=== PATIENT | male | born 1930 | race Caucasian/White ===

== ENCOUNTER 2017-06-08 09:23 | Inpatient (IN) | payer MEDICARE ==
[2017-06-08] MEDS ORDERED: ALBUTEROL NEBULIZED 2.5 MG/3 ML INHALATION STA (09:43)
[2017-06-08] MEDS ORDERED: methylPREDNISolone SOD SUCCI 125 MG/2 ML VIAL IV STA (09:43)
[2017-06-08] MEDS ORDERED: IPRATROPIUM 0.5 MG/2.5 ML NEBU INHALATION STA (09:43)
--- NOTE | 2017-06-08 09:50 | ED ---
General Adult HPI - General Chief complaint: Shortness of Breath Stated complaint: Difficulty Breathing Time Seen by Provider: 06/08/17 09:29 Source: patient, RN notes reviewed, old records reviewed Mode of arrival: wheelchair Limitations: no limitations - History of Present Illness Initial comments: 86-year-old male presents with chief complaint of to breathing and fall. History obtained from EMS and patient's spouse is at bedside. According EMS, initial call was made for fall. Patient was getting out of bed, fell to the side of the bed, there is no head trauma. No extra signs trauma according to EMS. Patient was sitting with complaint of tailbone pain. At the time my evaluation patient has no pain complaints. EMS found patient had moderate respiratory distress, diffuse rhonchi and hypoxia. According the patient's spouse he was scheduled to see his technology project manager yesterday but was unable to make this appointment. He has had a one-week history of worsening cough and dyspnea. Patient has history of COPD and pneumonia. Patient is unable to contribute to the history due to previous stroke. Patient's denies fever. - Related Data Home Medications Medication Instructions Recorded Confirmed Aspirin EC [Ecotrin Low Dose] 81 mg PO DAILY 06/08/17 06/08/17 Atorvastatin [Lipitor] 20 mg PO HS 06/08/17 06/08/17 Celecoxib [CeleBREX] 200 mg PO DAILY 06/08/17 06/08/17 Cranberry Fruit Extract [Cranberry] 200 mg PO DAILY 06/08/17 06/08/17 Ipratropium-Albuterol Nebulize 3 ml INHALATION RT-TID 06/08/17 06/08/17 [Duoneb 0.5 mg-3 mg/3 ml Soln] Losartan [Cozaar] 25 mg PO DAILY 06/08/17 06/08/17 Multivit-Min/FA/Lycopen/Lutein 1 tab PO DAILY 06/08/17 06/08/17 [Centrum Silver Tablet] Nitroglycerin Extended Release 6.5 mg PO Q12H 06/08/17 06/08/17 [Nitro-Bid] Vitamin D3 With Aloe 1 tab PO DAILY 06/08/17 06/08/17 Vits A,C,E/Lutein/Minerals 1 tab PO DAILY 06/08/17 06/08/17 [Ocuvite with Lutein Tablet] Allergies Allergy/AdvReac Type Severity Reaction Status Date / Time No Known Allergies Allergy Verified 06/08/17 09:47 Review of Systems ROS Statement: Those systems with pertinent positive or pertinent negative responses have been documented in the HPI. ROS Other: All systems not noted in ROS Statement are negative. 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 Absent: tenderness Respiratory exam: Present: respiratory distress, wheezes, rhonchi Cardiovascular Exam: Present: normal rhythm, tachycardia GI/Abdominal exam: Present: soft. Absent: distended, tenderness Extremities exam: Present: pedal edema, other (Right lower extremity atrophy) Back exam: Present: normal inspection, full ROM. Absent: tenderness Neurological exam: Present: alert, motor sensory deficit Skin exam: Present: warm, dry, intact. Absent: cyanosis, diaphoretic Course Vital Signs 06/08/17 06/08/17 06/08/17 09:28 09:56 10:06 Temperature 97.8 F Pulse Rate 101 H 100 Respiratory 26 H Rate Blood Pressure 137/57 O2 Sat by Pulse 86 L 88 L Oximetry 06/08/17 06/08/17 10:28 10:35 Temperature Pulse Rate 111 H 97 Respiratory 25 H Rate Blood Pressure 128/59 O2 Sat by Pulse 95 Oximetry EKG Findings - EKG Comments: EKG Findings:: EKG shows normal sinus rhythm with sinus arrhythmia, ventricular rate 98, IL interval 186, QRS duration 102, QTC 467, no signs of ischemia Medical Decision Making - Medical Decision Making 86-year-old male presenting with cough difficult to breathing and minor fall. Chest x-rays obtained, shows large right middle lobe pneumonia. White blood cell count 26.5, hyponatremia 127. Patient is started on antibiotics. He will be admitted for pneumonia with hypoxia. Regarding the fall, patient does have mild tenderness over the left hip, range of motion at the hip. Pelvis x-ray shows possible bilateral impingement on the right hip, patient does not have tenderness there. Diagnosis: Pneumonia with hypoxia - Lab Data Result diagrams: 06/08/17 09:50 06/08/17 09:50 Lab Results 06/08/17 06/08/17 06/08/17 Range/Units 09:50 09:50 09:50 WBC 26.5 H* (3.8-10.6) k/uL RBC 3.75 L (4.30-5.90) m/uL Hgb 11.1 L (13.0-17.5) gm/dL Hct 34.1 L (39.0-53.0) % MCV 91.0 (80.0-100.0) fL MCH 29.7 (25.0-35.0) pg MCHC 32.6 (31.0-37.0) g/dL RDW 13.1 (11.5-15.5) % Plt Count 626 H (150-450) k/uL Neutrophils % 89 % Lymphocytes % 8 % Monocytes % 2 % Eosinophils % 0 % Basophils % 0 % Neutrophils # 23.5 H (1.3-7.7) k/uL Lymphocytes # 2.2 (1.0-4.8) k/uL Monocytes # 0.5 (0-1.0) k/uL Eosinophils # 0.1 (0-0.7) k/uL Basophils # 0.0 (0-0.2) k/uL Manual Slide Review Performed Toxic Granulation Present Poikilocytosis (manual Present PT (9.0-12.0) sec INR (<1.2) APTT (22.0-30.0) sec Sodium 127 L (137-145) mmol/L Potassium 3.6 (3.5-5.1) mmol/L Chloride 93 L (98-107) mmol/L Carbon Dioxide 26 (22-30) mmol/L Anion Gap 8 mmol/L BUN 11 (9-20) mg/dL Creatinine 0.62 L (0.66-1.25) mg/dL Est GFR (MDRD) Af Amer >60 (>60 ml/min/1.73 sqM) Est GFR (MDRD) Non-Af >60 (>60 ml/min/1.73 sqM) Glucose 116 H (74-99) mg/dL Plasma Lactic Acid Saulo (0.7-2.0) mmol/L Calcium 9.0 (8.4-10.2) mg/dL Magnesium 2.0 (1.6-2.3) mg/dL Total Bilirubin 0.6 (0.2-1.3) mg/dL AST 31 (17-59) U/L ALT 68 (21-72) U/L Alkaline Phosphatase 119 (38-126) U/L Total Creatine Kinase 75 (55-170) U/L CK-MB (CK-2) 1.1 (0.0-2.4) ng/mL CK-MB (CK-2) Rel Index 1.5 Troponin I <0.012 (0.000-0.034) ng/mL NT-Pro-B Natriuret Pep pg/mL Total Protein 6.0 L (6.3-8.2) g/dL Albumin 2.3 L (3.5-5.0) g/dL 06/08/17 06/08/17 06/08/17 Range/Units 09:50 09:50 09:50 WBC (3.8-10.6) k/uL RBC (4.30-5.90) m/uL Hgb (13.0-17.5) gm/dL Hct (39.0-53.0) % MCV (80.0-100.0) fL MCH (25.0-35.0) pg MCHC (31.0-37.0) g/dL RDW (11.5-15.5) % Plt Count (150-450) k/uL Neutrophils % % Lymphocytes % % Monocytes % % Eosinophils % % Basophils % % Neutrophils # (1.3-7.7) k/uL Lymphocytes # (1.0-4.8) k/uL Monocytes # (0-1.0) k/uL Eosinophils # (0-0.7) k/uL Basophils # (0-0.2) k/uL Manual Slide Review Toxic Granulation Poikilocytosis (manual PT 12.9 H (9.0-12.0) sec INR 1.3 H (<1.2) APTT 28.4 (22.0-30.0) sec Sodium (137-145) mmol/L Potassium (3.5-5.1) mmol/L Chloride (98-107) mmol/L Carbon Dioxide (22-30) mmol/L Anion Gap mmol/L BUN (9-20) mg/dL Creatinine (0.66-1.25) mg/dL Est GFR (MDRD) Af Amer (>60 ml/min/1.73 sqM) Est GFR (MDRD) Non-Af (>60 ml/min/1.73 sqM) Glucose (74-99) mg/dL Plasma Lactic Acid Saulo 1.3 (0.7-2.0) mmol/L Calcium (8.4-10.2) mg/dL Magnesium (1.6-2.3) mg/dL Total Bilirubin (0.2-1.3) mg/dL AST (17-59) U/L ALT (21-72) U/L Alkaline Phosphatase (38-126) U/L Total Creatine Kinase (55-170) U/L CK-MB (CK-2) (0.0-2.4) ng/mL CK-MB (CK-2) Rel Index Troponin I (0.000-0.034) ng/mL NT-Pro-B Natriuret Pep 1690 pg/mL Total Protein (6.3-8.2) g/dL Albumin (3.5-5.0) g/dL Disposition Clinical Impression: Acute exacerbation of chronic obstructive airways disease, Pneumonia Disposition: ADMITTED IP TO THIS [facility] Condition: Serious Referrals: Yonathan Ulrich MD [Primary Care Provider] - 1-2 days Decision to Admit Reason: Admit from EC Decision Date: 06/08/17 Decision Time: 12:06
[2017-06-08 10:14] LABS: Basophils % (A) 0 %; CH 31.2; CHCM 34.4; Eosinophils # (A) 0.1 k/uL (0-0.7); Eosinophils % (A) 0 %; HCT 34.1 % (39.0-53.0); HDW 2.67; HGB 11.1 gm/dL (13.0-17.5); Luc # (Auto) 0.21; Luc % (Auto) 1; Lymphocytes # (A) 2.2 k/uL (1.0-4.8); Lymphocytes % (A) 8 %; MCH 29.7 pg (25.0-35.0); MCHC 32.6 g/dL (31.0-37.0); Mean Platelet Volume 6.9; Monocytes # (A) 0.5 k/uL (0-1.0); Monocytes % (A) 2 %; Neutrophils # (A) 23.5 k/uL (1.3-7.7); Neutrophils % (A) 89 %; RBC 3.75 m/uL (4.30-5.90); RDW 13.1 % (11.5-15.5); WBC (Perox) 26.37
[2017-06-08 10:16] LABS: INR 1.3 (<1.2); Partial Thromboplastin Time 28.4 sec (22.0-30.0); Prothrombin Time 12.9 sec (9.0-12.0)
[2017-06-08 10:19] LABS: WBC 26.5 k/uL (3.8-10.6)
[2017-06-08 10:24] LABS: ALT 68 U/L (21-72); AST 31 U/L (17-59); Alkaline Phosphatase 119 U/L (38-126); Anion Gap 8 mmol/L; Blood Urea Nitrogen 11 mg/dL (9-20); Carbon Dioxide 26 mmol/L (22-30); Chloride 93 mmol/L (98-107); Glucose 116 mg/dL (74-99); Non-African American GFR(MDRD) >60 (>60 ml/min/1.73 sqM); Potassium 3.6 mmol/L (3.5-5.1); Sodium 127 mmol/L (137-145); Total Bilirubin 0.6 mg/dL (0.2-1.3)
[2017-06-08 10:29] LABS: Creatine Kinase 75 U/L (55-170)
[2017-06-08 10:33] LABS: Manual Review Performed
[2017-06-08 10:34] LABS: Toxic Granulation Present
[2017-06-08 10:41] LABS: Creatine Kinase MB 1.1 ng/mL (0.0-2.4); Troponin I <0.012 ng/mL (0.000-0.034)
--- NOTE | 2017-06-08 11:09 | XR ---
EXAMINATION TYPE: XR chest 2V DATE OF EXAM: 06/08/2017 COMPARISON: 04/20/2017 TECHNIQUE: PA and lateral views submitted. HISTORY: Shortness of breath FINDINGS: There is a large right hilar mass in area of consolidation. Right apical pleural thickening stable. R ight lower lobe infiltrate and small effusion noted. Subsegmental changes at the left lung base with tiny effusion. Underlying COPD suspected with atherosclerotic change aorta. Diffuse osteopenia and ar thropathy of the shoulders. IMPRESSION: 1. Bilateral areas of pleural effusion and consolidation with suspected large right hilar mass or con solidation. Recommend CT scan of the chest.
--- NOTE | 2017-06-08 11:11 | XR ---
EXAMINATION TYPE: XR pelvis AP view DATE OF EXAM: 06/08/2017 COMPARISON: NONE HISTORY: Pain The osseous structures are intact and severe degenerative change lower lumbar spine. Postsurgical changes are noted with surgical clips. Arthropathy of the hips.. No acute fracture is s een. Visualized bowel gas pattern is nonspecific. Slight deformity of the superior margin of the ri ght femoral neck. IMPRESSION: 1. Slight deformity of the superior margin the right femoral neck may been the basis of femoral aceta bular impingement rather than fracture. If the patient is point tender to the right hip then consider CT scan..
[2017-06-08] MEDS ORDERED: VANCOMYCIN IV PER PHARMACY 1 EACH MISC MISCELLANE PRN (12:00)
[2017-06-08] MEDS ORDERED: RX INFO: IV CONTRAST WAS GIVEN 1 EACH MISC MISCELLANE PRN (12:01)
[2017-06-08] MEDS ORDERED: CEFEPIME 2 GM in SODIUM CHLORIDE 0.9% 50 ML IVPB STA (12:02)
[2017-06-08] MEDS ORDERED: VANCOMYCIN 1,250 MG in SODIUM CHLORIDE 0.9% 250 ML IVPB ONE (12:30)
[2017-06-08 13:28] LABS: Appearance,Urine Clear (Clear); Bilirubin,Urine Negative (Negative); Glucose,Urine (UA) Negative (Negative); Ketones,Urine Negative (Negative); Leukocyte Esterase,Urine Negative (Negative); Nitrite,Urine Negative (Negative); Protein,Urine Trace (Negative); Specific Gravity,Urine 1.013 (1.001-1.035); UA Billing (MACRO vs. MICRO) CHEM
--- NOTE | 2017-06-08 14:18 | CT ---
EXAMINATION TYPE: CT pelvis wo con DATE OF EXAM: 06/08/2017 COMPARISON: Plain film same date HISTORY: fall CT DLP: 547 mGycm Automated exposure control for dose reduction was used. Helical acquisition through the pelvis. Coron al and sagittal reconstructions. FINDINGS: Faint lucency noted on axial image 58 and 59 in the right femoral neck is thought likely to be relate d to a nutrient foramen rather than fracture. There is no evident joint effusion. No surrounding jay jay a. Prostate is enlarged and shows associated calcification. There is no dislocation. Degenerative dis c changes are noted in the lower lumbar spine. Postop change present at the posterior ilium on the ri ght. Laminectomy noted at L5, L4, patient is post lumbar fusion. Postop change also noted to the abdo ishaan aorta status post aorta bifemoral bypass grafts. IMPRESSION: SUSPECT NORMAL VARIANT IN THE RIGHT FEMORAL NECK. CLINICALLY INDICATED MRI MAY BEEN INCREASED SENS ITIVITY. POSTOP CHANGES.
--- NOTE | 2017-06-08 14:29 | CT ---
EXAMINATION TYPE: CT chest w con DATE OF EXAM: 06/08/2017 COMPARISON: Chest x-ray 04/20/[address] 09/01/2009 HISTORY: pneumonia and cough, COPD, shortness of breath CT DLP: 668 mGycm Automated exposure control for dose reduction was used. CONTRAST: CT scan of the chest is performed with IV Contrast, patient injected with 100 mL of Omnipaque 300. FINDINGS: LUNGS: Abnormal density in the right lower lobe is increased, there are thick walled areas of air-flu id levels, multiple internal septated appearance. Overall the abnormality measures approximately 10 c m x 10 cm x 6 cm and extends from the right hilar region posteriorly and inferiorly along the pleural surface medially and posteriorly. Low-attenuation in the pulmonary veins may be due to lack of contr ast, difficult to exclude clot. Extensive interstitial changes are again noted, emphysematous changes again seen as on prior exam, there is apical scarring on the right greater than left, bullous change s. There is patchy increased density at the right lung base greater than left. Minimal right-sided pl eural effusion. MEDIASTINUM: Right paratracheal nodes are not enlarged. Small hiatal hernia suspected. AORTA: No additional significant abnormality is seen. OTHER: Colonic interposition noted anterior to the liver. There are coronary artery calcifications w hich are extensive. Calcified precarinal node is present. There are old right-sided rib fractures. IMPRESSION: Correlate to exclude multilocular lung abscess versus tumor, difficult to exclude pulmon sarah pain thrombosis in the right lower lobe. Consider pulmonary, cardiothoracic surgery consult A [place] message has been communicated to Wayne Torres MD via the [employer] Critical Result system on 06/08/2017 2:27 PM, Message ID [id number].
[2017-06-08] MEDS: IPRATROPIUM-ALBUTEROL 3 ML NEB INHALATION SCH ×2 (16:24→19:30)
--- NOTE | 2017-06-08 19:40 | P.HPIM ---
History of Present Illness H&P Date: 06/08/17 Chief Complaint: fall from standing, shortness of breath HISTORY OF PRESENT ILLNESS: 86-year-old male patient of Dr. Yonathan Wu with chronic stable medical conditions that include COPD, CVA, hyperlipidemia, BPH presented to the emergency department after he sustained a fall earlier this morning and shortness of breath. Patient is unable to provide much history as he had had stroke in 1981 and has right-sided hemiplegia. at the bedside and provides most of the history. Patient was experiencing some urinary urgency and was attempting to use the urinal at home and his found him down on the ground with the urinal his hand when she returned. Did not hit his head no loss of consciousness, EMS was called to have him brought in to be looked at but on their arrival patient seemed to be in respiratory distress diffuse rhonchi and hypoxia. Patient was to see his registered nursing professor yesterday however was unable to get to the appointment. Has had shortness of breath worsening cough and dyspnea for about a week. Endorses sputum production that is clear, shortness of breath with minimal exertion. REVIEW OF SYSTEMS GEN.: [ Tired] EYES: [None] HEENT: [None] NECK: [None] RESPIRATORY: [shortness of breath, sputum production, cough] CARDIOVASCULAR: [Chest pain yesterday] GASTROINTESTINAL: [None] GENITOURINARY: [dribbling of urine, difficulty urinating] MUSCULOSKELETAL: [right-sided weakness] LYMPHATICS: [None] HEMATOLOGICAL: [None] PSYCHIATRY: [None] NEUROLOGICAL: [CVA with right-sided residual] PAST MEDICAL HISTORY Past medical history: COPD, CVA, hyperlipidemia, BPH,, history of MRSA Past surgical history: back surgery Past psychological history: none SOCIAL HISTORY: Additional psychological/social history: smoking use history:former smoker 2 packs per day 45 years Alcohol use history: none Drug use history:none marital status: Lives with: Work history: work in factory, retired FAMILY HISTORY: noncontributory HOME MEDICATION: vitamin D3 with Aloe 1 tablet by mouth daily Vitamin A/C/E/LUTEIN /minerals 1 tab by mouth daily Nitroglycerin extended release 6.5 mg by mouth every 12 hours Losartan 25 mg by mouth daily Ipratropium albuterol nebulize 3 mL inhalation 3 times a day Cranberry fruit extract 200 mg by mouth daily Multivitamin/FA/lycopene/1 one tablet by mouth daily Aspirin EC 81 mg by mouth daily Celebrex 200 mg by mouth daily Atorvastatin 20 mg by mouth at bedtime. ALLERGIES: no known ALLERGIES VITAL SIGNS: [.temperature 97.0, pulse 98, respiratory rate 18, blood pressure 155/73, oxygen saturation 97% on 3 L. BMI noted] GENERAL: [Average built, sitting up, comfortable]. EYES: [Pupils equal. Conjunctiva blanche]l. HEENT: [External appearance of nose and ears normal, oral cavity grossly normal] . NECK: [JVD not raised; masses not palpable]. HEART: [First and second heart sounds are normal; no edema]. LUNGS:[ Respiratory rate normal; diminished to auscultation]. ABDOMEN: [Soft, nontender, liver spleen not palpable, no masses palpable]. LYMPHATICS: [No lymph nodes palpable in the axilla and neck]. PSYCH: able to answer simple straightforward questions ; mood and affect blanche ]l. NEUROLOGICAL: right-sided hemiplegia from previous stroke, right lower extremity atrophy,right arm contracted INVESTIGATIONS: labs: White blood cell count 26.5, hemoglobin 11.1, INR 1.3, sodium 127, pelvis CT: Suspect normal variant in the right femoral neck Chest CT:correlate to exclude multilocular lung abscess versus tumor difficult to exclude pulmonary thrombosis in the right lower lobe. ASSESSMENT: -fall from standing in a patient who has a history of CVA, did not hit his head and no loss of consciousness -acute chronic obstructive pulmonary disease exacerbation in a patient who is an ex-smoker -Benign prostatic hypertrophy in a patient who is having increasing difficulty with his stream, not currently on any medication -Hyperlipidemia. -History of CVA with right hemiplegia PLAN: Home medications reordered,pulmonology consulted,Flomax added to patient's regimen , PT and OT consult. plan of care discussed with the and the patient at the bedside in agreement. We will follow closely. CARDBOARD CUTTER STATEMENT: Patient was seen and examined by nurse practitioner Vangie Willard in all elements of the case discussed with attending Dr. Torres. 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 History of Any Multi-Drug Resistant Organisms: None Reported Past Surgical History: Back Surgery Additional Past Surgical History / Comment(s): 1991 lumbar laminectomy with fusion, 1996 AAA repair Past Anesthesia/Blood Transfusion Reactions: No Reported Reaction Smoking Status: Former smoker - Past Family History Father Family Medical History: Myocardial Infarction (NV) Additional Family Medical History / Comment(s): Father of a NV in his 80's. Mother Family Medical History: Hypertension Additional Family Medical History / Comment(s): Mother in her 80's Medications and Allergies Home Medications Medication Instructions Recorded Confirmed Type Aspirin EC [Ecotrin Low Dose] 81 mg PO DAILY 06/08/17 06/08/17 History Atorvastatin [Lipitor] 20 mg PO HS 06/08/17 06/08/17 History Celecoxib [CeleBREX] 200 mg PO DAILY 06/08/17 06/08/17 History Cranberry Fruit Extract [Cranberry] 200 mg PO DAILY 06/08/17 06/08/17 History Ipratropium-Albuterol Nebulize 3 ml INHALATION RT-TID 06/08/17 06/08/17 History [Duoneb 0.5 mg-3 mg/3 ml Soln] Losartan [Cozaar] 25 mg PO DAILY 06/08/17 06/08/17 History Multivit-Min/FA/Lycopen/Lutein 1 tab PO DAILY 06/08/17 06/08/17 History [Centrum Silver Tablet] Nitroglycerin Extended Release 6.5 mg PO Q12H 06/08/17 06/08/17 History [Nitro-Bid] Vitamin D3 With Aloe 1 tab PO DAILY 06/08/17 06/08/17 History Vits A,C,E/Lutein/Minerals 1 tab PO DAILY 06/08/17 06/08/17 History [Ocuvite with Lutein Tablet] Allergies Allergy/AdvReac Type Severity Reaction Status Date / Time No Known Allergies Allergy Verified 06/08/17 09:47 Physical Exam Vitals: Vital Signs Temp Pulse Pulse Resp BP BP Pulse Ox 06/08/17 16:36 96 06/08/17 16:24 96 06/08/17 15:07 98 18 06/08/17 14:41 97.0 F L 98 18 155/73 97 06/08/17 14:02 98.8 F 97 18 156/67 94 L 06/08/17 13:12 96 25 H 164/72 94 L 06/08/17 10:35 97 25 H 128/59 95 06/08/17 10:28 111 H 06/08/17 10:06 100 06/08/17 09:56 88 L 06/08/17 09:28 97.8 F 101 H 26 H 137/57 86 L Intake and Output 06/08/17 06/08/17 06/08/17 06:59 14:59 22:59 Intake Total 240 Output Total 300 Balance -300 240 Intake: Oral 240 Output: Urine 300 Straight 300 Other: Weight 62.142 kg Patient Weight 06/09/17 06:59 Weight 62.142 kg Results CBC & Chem 7: 06/08/17 09:50 06/08/17 09:50 Labs: Abnormal Lab Results - Last 24 Hours (Table) 06/08/17 06/08/17 06/08/17 Range/Units 09:50 09:50 09:50 WBC 26.5 H* (3.8-10.6) k/uL RBC 3.75 L (4.30-5.90) m/uL Hgb 11.1 L (13.0-17.5) gm/dL Hct 34.1 L (39.0-53.0) % Plt Count 626 H (150-450) k/uL Neutrophils # 23.5 H (1.3-7.7) k/uL PT 12.9 H (9.0-12.0) sec INR 1.3 H (<1.2) Sodium 127 L (137-145) mmol/L Chloride 93 L (98-107) mmol/L Creatinine 0.62 L (0.66-1.25) mg/dL Glucose 116 H (74-99) mg/dL Total Protein 6.0 L (6.3-8.2) g/dL Albumin 2.3 L (3.5-5.0) g/dL Urine Protein (Negative) 06/08/17 Range/Units 13:00 WBC (3.8-10.6) k/uL RBC (4.30-5.90) m/uL Hgb (13.0-17.5) gm/dL Hct (39.0-53.0) % Plt Count (150-450) k/uL Neutrophils # (1.3-7.7) k/uL PT (9.0-12.0) sec INR (<1.2) Sodium (137-145) mmol/L Chloride (98-107) mmol/L Creatinine (0.66-1.25) mg/dL Glucose (74-99) mg/dL Total Protein (6.3-8.2) g/dL Albumin (3.5-5.0) g/dL Urine Protein Trace H (Negative) Thrombosis Risk Factor Assmnt - Choose All That Apply Any of the Below Risk Factors Present?: Yes Each Factor Represents 1 point: Abnormal pulmonary function (COPD), Serious lung disease incl. pneumonia (< 1month) Other Risk Factors: Yes Each Risk Factor Represents 3 Points: Age 75 years or older Other congenital or acquired thrombophilia - If yes, enter type in comment: No Thrombosis Risk Factor Assessment Total Risk Factor Score: 5 Thrombosis Risk Factor Assessment Level: High Risk
[2017-06-08 20:20] LABS: Glucose,Whole Blood 170 mg/dL (75-99)
[2017-06-08] MEDS: NITROGLYCERIN EXTENDED RELEASE 6.5 MG CAPSULE.ER PO SCH (20:23)
[2017-06-08] MEDS: ATORVASTATIN 20 MG TAB PO SCH (20:23)
[2017-06-08] MEDS: TAMSULOSIN 0.4 MG CAP.ER.24H PO SCH (20:23)
--- NOTE | 2017-06-08 20:49 | HP ---
HISTORY AND PHYSICAL ATTENDING NOTE: The patient was seen and examined by me. I discussed with my nurse practitioner, Montse. This patient is here with his . History is obtained from his at the bedside, as patient cannot speak; he has aphasia from a prior stroke. The patient presented with a fall. His found him down on the floor. EMS was called out. Patient was found to be rather hypoxic, tachycardic. The patient has been coughing up thick sputum. Denies any fever. Appetite has been maintained. The patient, though, is able to follow commands but only cannot speak. PHYSICAL EXAMINATION: Temperature 97.8, pulse 101, respiration 26, blood pressure 137/57, pulse ox 86% on room air. GENERAL APPEARANCE: Thin build. Lying in bed, awake. EYES: Pupils equal.. Conjunctivae pale. RESPIRATORY: Effort increased. LUNGS: Diminished breath sounds. Some wheezing. CARDIOVASCULAR: First and second sounds normal. No edema. ABDOMEN: Soft, nontender. Liver and spleen not palpable. NEUROLOGICAL: Power on the right side is 1/5. Patient is actually aphasic. INVESTIGATIONS: White count 26.5, hemoglobin 11.1, potassium 3.6, sodium 127, BUN 11, creatinine 0.62, albumin 2.3. CT scan of the chest shows possible multilocular lung abscess versus tumor; difficult to exclude pulmonary vein thrombosis, right lower lobe. ASSESSMENT: 1. Possible right-sided severe multilocular pneumonia; could be aspiration. 2. Chronic obstructive pulmonary disease. 3. 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 4. Hyperlipidemia. 5. Primary osteoarthritis. 6. Essential hypertension. 7. Benign prostatic hypertrophy. 8. Possible moderate protein-calorie malnutrition with a BMI of 18.6, decreased albumin and reduced muscle mass. PLAN: Consultation to Pulmonary and Cardiothoracic Surgery will be made as recommended on the radiology report. Home medications are resumed. Patient is on IV cefepime. Care was discussed at the bedside. In spite of the above findings, patient is rather smiling, sitting up. MMODL / IJN: [id number] /
[2017-06-08] MEDS: CEFEPIME 2 GM in SODIUM CHLORIDE 0.9% 50 ML IVPB SCH (22:05)
[2017-06-09] MEDS ORDERED: VANCOMYCIN 1,250 MG in SODIUM CHLORIDE 0.9% 250 ML IVPB SCH ×2
[2017-06-09 00:25] LABS: Glucose,Whole Blood 168 mg/dL (75-99)
[2017-06-09] MEDS: CEFEPIME 2 GM in SODIUM CHLORIDE 0.9% 50 ML IVPB SCH ×3 (06:06→21:53)
[2017-06-09 06:29] LABS: Basophils % (A) 0 %; CH 30.9; CHCM 33.7; Eosinophils % (A) 0 %; HCT 31.8 % (39.0-53.0); HDW 2.66; HGB 10.4 gm/dL (13.0-17.5); Luc # (Auto) 0.16; Luc % (Auto) 1; Lymphocytes # (A) 0.9 k/uL (1.0-4.8); Lymphocytes % (A) 3 %; MCH 29.9 pg (25.0-35.0); MCHC 32.6 g/dL (31.0-37.0); MCV 91.9 fL (80.0-100.0); Mean Platelet Volume 6.8; Monocytes # (A) 0.6 k/uL (0-1.0); Monocytes % (A) 2 %; Neutrophils # (A) 23.3 k/uL (1.3-7.7); Neutrophils % (A) 94 %; RBC 3.46 m/uL (4.30-5.90); WBC (Perox) 24.94
[2017-06-09 07:42] LABS: Anion Gap 7 mmol/L; Blood Urea Nitrogen 15 mg/dL (9-20); Calcium 8.8 mg/dL (8.4-10.2); Carbon Dioxide 23 mmol/L (22-30); Chloride 96 mmol/L (98-107); Glucose 127 mg/dL (74-99); Non-African American GFR(MDRD) >60 (>60 ml/min/1.73 sqM); Sodium 126 mmol/L (137-145)
[2017-06-09] MEDS: IPRATROPIUM-ALBUTEROL 3 ML NEB INHALATION SCH ×4 (08:17→20:09)
[2017-06-09] MEDS ORDERED: predniSONE 20 MG TAB PO SCH (09:00)
[2017-06-09] MEDS ORDERED: ALOE PO SCH (09:00)
[2017-06-09] MEDS ORDERED: VITAMIN D3 PO SCH (09:00)
[2017-06-09] MEDS: ASPIRIN 81 MG PO SCH (09:40)
[2017-06-09] MEDS: MELOXICAM 7.5 MG TAB PO SCH (09:40)
[2017-06-09] MEDS: NITROGLYCERIN EXTENDED RELEASE 6.5 MG CAPSULE.ER PO SCH ×2 (09:40→20:06)
[2017-06-09] MEDS: ENOXAPARIN 40 MG/0.4 ML SYRINGE SQ SCH (09:40)
[2017-06-09] MEDS: LOSARTAN 25 MG TAB PO SCH (09:40)
[2017-06-09] MEDS: MULTIVITAMINS, THERA 1 EACH TAB PO SCH (11:27)
--- NOTE | 2017-06-09 11:39 | P.GSCN ---
History of Present Illness Consult date: 06/09/17 Reason for Consult: Abnormal computed tomography scan of the chest. Requesting physician: Wayne Torres History of present illness: This is an 86-year-old gentleman who is followed by Dr. Yonathan Ulrich on an outpatient basis. 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 Recently, the patient has had complaints of progressive shortness of breath 1 week and was scheduled to see a doctor Giles from pulmonary medicine on an outpatient basis. On 06/08/2017 the patient was trying to use his urinal at his bedside and subsequently fell without hitting his head or losing consciousness. The patient's called EMS and according to the EMS notes the patient was found to be in some respiratory distress with diffuse rhonchi and hypoxic. The patient also had some tenacious sputum production. He denies having a fever. The patient is aphasic from a previous stroke and much of his history has been obtained from the patient's who is sitting at his bedside. The patient is shaking his head no when asked if he has had any chest pain, nausea or vomiting. His reports that her has been having increase in falls at home with having 3-4 falls in the past 2-3 weeks. The patient's also states that EMS was called this past Sunday after he had a fall at home but he was not taken to the hospital at that time. She also reports that about 3 weeks ago he had a fall at home and was taken via EMS to [facility] where he received stitches to a laceration on his head. He also has home physical therapy and according to the his the physical therapist reported that the patient has not been walking as well as usual. He does use a cane and brace at home when ambulating. The patient's also reports that he has been having increased difficulty with swallowing food at home. The patient had a 12-lead EKG completed in the emergency department which showed normal sinus rhythm heart rate 98, a chest x-ray was completed which showed a large right hilar mass or consolidation and for further evaluation he underwent a computed tomography scan of his chest which demonstrated an abnormal density to his right lower lobe measuring 10 cm x 10 cm x 6 cm. His labs demonstrated a WBC count of 26.5, hemoglobin 11.1, platelets 626, INR of 1.3, BUN of 11, creatinine 0.62, troponin less than 0.012 and a BNP level of 1690. Subsequently due to the patient's above-mentioned history, abnormal computed tomography scan of his chest results, Dr. Jeffery from cardiothoracic surgery was asked to see and evaluate the patient. Review of Systems A 14 point review of systems was completed and was negative except for as mentioned in the HPI. 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 History of Any Multi-Drug Resistant Organisms: None Reported Past Surgical History: Back Surgery Additional Past Surgical History / Comment(s): 1991 lumbar laminectomy with fusion, 1996 AAA repair Past Anesthesia/Blood Transfusion Reactions: No Reported Reaction Past Psychological History: No Psychological Hx Reported Smoking Status: Former smoker Past Alcohol Use History: None Reported Past Drug Use History: None Reported - Past Family History Father Family Medical History: Myocardial Infarction (NC) Additional Family Medical History / Comment(s): Father of a [place] in his 80's. Mother Family Medical History: Hypertension Additional Family Medical History / Comment(s): Mother in her 80's Medications and Allergies Home Medications Medication Instructions Recorded Confirmed Type Aspirin EC [Ecotrin Low Dose] 81 mg PO DAILY 06/08/17 06/08/17 History Atorvastatin [Lipitor] 20 mg PO HS 06/08/17 06/08/17 History Celecoxib [CeleBREX] 200 mg PO DAILY 06/08/17 06/08/17 History Cranberry Fruit Extract [Cranberry] 200 mg PO DAILY 06/08/17 06/08/17 History Ipratropium-Albuterol Nebulize 3 ml INHALATION RT-TID 06/08/17 06/08/17 History [Duoneb 0.5 mg-3 mg/3 ml Soln] Losartan [Cozaar] 25 mg PO DAILY 06/08/17 06/08/17 History Multivit-Min/FA/Lycopen/Lutein 1 tab PO DAILY 06/08/17 06/08/17 History [Centrum Silver Tablet] Nitroglycerin Extended Release 6.5 mg PO Q12H 06/08/17 06/08/17 History [Nitro-Bid] Vitamin D3 With Aloe 1 tab PO DAILY 06/08/17 06/08/17 History Vits A,C,E/Lutein/Minerals 1 tab PO DAILY 06/08/17 06/08/17 History [Ocuvite with Lutein Tablet] Allergies Allergy/AdvReac Type Severity Reaction Status Date / Time No Known Allergies Allergy Verified 06/08/17 09:47 Surgical - Exam Vital Signs Temp Pulse Resp BP Pulse Ox 97.8 F 101 H 26 H 137/57 86 L 06/08/17 09:28 06/08/17 09:28 06/08/17 09:28 06/08/17 09:28 06/08/17 09:28 - General Thin no distress, no pain - Eyes PERRL, normal ocular movement - ENT normal pinna, normal nares, normal mucosa, no congestion, poor senior living - Neck No JVD, no lymphadenopathy. no masses, trachea midline, no venous distension carotid bruit: bilateral - Respiratory Lung sounds are essentially clear throughout, diminished to his bilateral bases right greater than his left. Respirations are symmetrical and nonlabored. Oxygen saturation 95% on 3 L nasal cannula. - Cardiovascular Regular rhythm and rate. S1 and S2 present, negative for S3, gallop or murmur. Remote telemetry showing sinus tachycardia heart rate 101. No edema present. - Abdomen Abdomen is soft, nontender and nondistended. No guarding or rigidity. Active bowel sounds all 4 abdominal quadrants. No organomegaly. - Genitourinary Episodes of incontinence, wearing a brief period - Rectum Deferred - Integumentary no rash, no growths, no abnormal pigmentation - Neurologic Right-sided hemiplegia, and aphasic. Shakes his head appropriately to yes and no questions. Results - Labs 06/09/17 05:36 06/09/17 05:36 Abnormal Lab Results - Last 24 Hours (Table) 06/08/17 06/08/17 06/08/17 Range/Units 09:50 09:50 09:50 WBC 26.5 H* (3.8-10.6) k/uL RBC 3.75 L (4.30-5.90) m/uL Hgb 11.1 L (13.0-17.5) gm/dL Hct 34.1 L (39.0-53.0) % Plt Count 626 H (150-450) k/uL Neutrophils # 23.5 H (1.3-7.7) k/uL Lymphocytes # (1.0-4.8) k/uL PT 12.9 H (9.0-12.0) sec INR 1.3 H (<1.2) Sodium 127 L (137-145) mmol/L Chloride 93 L (98-107) mmol/L Creatinine 0.62 L (0.66-1.25) mg/dL Glucose 116 H (74-99) mg/dL POC Glucose (mg/dL) (75-99) mg/dL Total Protein 6.0 L (6.3-8.2) g/dL Albumin 2.3 L (3.5-5.0) g/dL Urine Protein (Negative) 06/08/17 06/08/17 06/09/17 Range/Units 13:00 20:11 00:12 WBC (3.8-10.6) k/uL RBC (4.30-5.90) m/uL Hgb (13.0-17.5) gm/dL Hct (39.0-53.0) % Plt Count (150-450) k/uL Neutrophils # (1.3-7.7) k/uL Lymphocytes # (1.0-4.8) k/uL PT (9.0-12.0) sec INR (<1.2) Sodium (137-145) mmol/L Chloride (98-107) mmol/L Creatinine (0.66-1.25) mg/dL Glucose (74-99) mg/dL POC Glucose (mg/dL) 170 H 168 H (75-99) mg/dL Total Protein (6.3-8.2) g/dL Albumin (3.5-5.0) g/dL Urine Protein Trace H (Negative) 06/09/17 06/09/17 Range/Units 05:36 05:36 WBC 25.0 H* (3.8-10.6) k/uL RBC 3.46 L (4.30-5.90) m/uL Hgb 10.4 L (13.0-17.5) gm/dL Hct 31.8 L (39.0-53.0) % Plt Count 567 H (150-450) k/uL Neutrophils # 23.3 H (1.3-7.7) k/uL Lymphocytes # 0.9 L (1.0-4.8) k/uL PT (9.0-12.0) sec INR (<1.2) Sodium 126 L (137-145) mmol/L Chloride 96 L (98-107) mmol/L Creatinine 0.60 L (0.66-1.25) mg/dL Glucose 127 H (74-99) mg/dL POC Glucose (mg/dL) (75-99) mg/dL Total Protein (6.3-8.2) g/dL Albumin (3.5-5.0) g/dL Urine Protein (Negative) Microbiology - Last 24 Hours (Table) 06/08/17 09:50 Blood Culture Gram Stain - Preliminary Blood 06/08/17 09:50 Blood Culture - Final Blood Diabetes panel 06/08/17 06/09/17 Range/Units 09:50 05:36 Sodium 127 L 126 L (137-145) mmol/L Potassium 3.6 4.0 (3.5-5.1) mmol/L Chloride 93 L 96 L (98-107) mmol/L Carbon Dioxide 26 23 (22-30) mmol/L BUN 11 15 (9-20) mg/dL Creatinine 0.62 L 0.60 L (0.66-1.25) mg/dL Glucose 116 H 127 H (74-99) mg/dL Calcium 9.0 8.8 (8.4-10.2) mg/dL AST 31 (17-59) U/L ALT 68 (21-72) U/L Alkaline Phosphatase 119 (38-126) U/L Total Protein 6.0 L (6.3-8.2) g/dL Albumin 2.3 L (3.5-5.0) g/dL Calcium panel 06/08/17 06/09/17 Range/Units 09:50 05:36 Calcium 9.0 8.8 (8.4-10.2) mg/dL Albumin 2.3 L (3.5-5.0) g/dL Pituitary panel 06/08/17 06/09/17 Range/Units 09:50 05:36 Sodium 127 L 126 L (137-145) mmol/L Potassium 3.6 4.0 (3.5-5.1) mmol/L Chloride 93 L 96 L (98-107) mmol/L Carbon Dioxide 26 23 (22-30) mmol/L BUN 11 15 (9-20) mg/dL Creatinine 0.62 L 0.60 L (0.66-1.25) mg/dL Glucose 116 H 127 H (74-99) mg/dL Calcium 9.0 8.8 (8.4-10.2) mg/dL Adrenal panel 06/08/17 06/09/17 Range/Units 09:50 05:36 Sodium 127 L 126 L (137-145) mmol/L Potassium 3.6 4.0 (3.5-5.1) mmol/L Chloride 93 L 96 L (98-107) mmol/L Carbon Dioxide 26 23 (22-30) mmol/L BUN 11 15 (9-20) mg/dL Creatinine 0.62 L 0.60 L (0.66-1.25) mg/dL Glucose 116 H 127 H (74-99) mg/dL Calcium 9.0 8.8 (8.4-10.2) mg/dL Total Bilirubin 0.6 (0.2-1.3) mg/dL AST 31 (17-59) U/L ALT 68 (21-72) U/L Alkaline Phosphatase 119 (38-126) U/L Total Protein 6.0 L (6.3-8.2) g/dL Albumin 2.3 L (3.5-5.0) g/dL - Imaging Chest x-ray: report reviewed, image reviewed CT scan - chest: report reviewed, image reviewed CT scan - pelvis: report reviewed, image reviewed EKG: image reviewed Assessment and Plan (1) Abnormal finding on chest xray Current Visit: Yes Status: Acute Code(s): R93.8 - ABNORMAL FINDINGS ON DIAGNOSTIC IMAGING OF BODY STRUCTURES SNOMED Code(s): 723872916 (2) Abnormal CT scan, chest Current Visit: Yes Status: Acute Code(s): R93.8 - ABNORMAL FINDINGS ON DIAGNOSTIC IMAGING OF BODY STRUCTURES SNOMED Code(s): 307067785 (3) Hyperlipidemia Current Visit: Yes Status: Acute Code(s): E78.5 - HYPERLIPIDEMIA, UNSPECIFIED SNOMED Code(s): 24044402 (4) Hypertension Current Visit: Yes Status: Acute Code(s): I10 - ESSENTIAL (PRIMARY) HYPERTENSION SNOMED Code(s): 21275427 (5) COPD (chronic obstructive pulmonary disease) Current Visit: Yes Status: Acute Code(s): J44.9 - CHRONIC OBSTRUCTIVE PULMONARY DISEASE, UNSPECIFIED SNOMED Code(s): 63579550 (6) History of cerebrovascular accident (CVA) with residual deficit Current Visit: Yes Status: Acute Code(s): I69.30 - UNSPECIFIED SEQUELAE OF CEREBRAL INFARCTION SNOMED Code(s): 642358654 (7) 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 Current Visit: Yes Status: Acute Code(s): I69.920 - APHASIA FOLLOWING UNSPECIFIED CEREBROVASCULAR DISEASE SNOMED Code(s): 618962469 (8) BPH (benign prostatic hyperplasia) Current Visit: Yes Status: Acute Code(s): N40.0 - BENIGN PROSTATIC HYPERPLASIA WITHOUT LOWER URINRY TRACT SYMP SNOMED Code(s): 472468536 (9) Fall from standing Current Visit: Yes Status: Acute Code(s): W19.XXXA - UNSPECIFIED FALL, INITIAL ENCOUNTER SNOMED Code(s): 7906755 (10) Bilateral carotid bruits Current Visit: Yes Status: Acute Code(s): R09.89 - OTH SYMPTOMS AND SIGNS INVOLVING THE CIRC AND RESP SYSTEMS SNOMED Code(s): 482760688 Plan: The patient was seen and examined, his chart and diagnostics were reviewed. Case was discussed with Dr. Jeffery. Patient is currently asymptomatic and denies any further complaints of shortness of breath. The patient may need a bronchoscopy, or possible percutaneous drainage. Continue antibiotic therapy as ordered. Further recommendations as patient progresses. Time with Patient: Greater than 30
--- NOTE | 2017-06-09 12:38 | P.PN ---
Progress Note - Text Progress Note Date: 06/09/17 DATE OF SERVICE: 06/09/2017 PRESENTING COMPLAINT: Fall, shortness of breath HISTORY OF PRESENT ILLNESS: 86-year-old male with right-sided hemiplegia presents after a fall sustained at home trying to use the urinal and increasing shortness of breath. INTERVAL HISTORY: 06/09/2017: Patient seen in follow-up, remains at the bedside, appears comfortable, appears aware of his surroundings, recognizes care staff, tolerating his diet, some concerns expressed by the that patient has a tendency to put too much in his mouth and there may be possibility of aspiration. Cough is improved, producing less sputum. Remains on oxygen. REVIEW OF SYSTEMS: Done for constitutional ,cardiovascular, GI, pulmonary with relevant findings as above. CURRENT MEDICATIONS DuoNeb, aspirin, Lipitor, cefepime 2 g IV piggyback, Lovenox, Cozaar 25 mg by mouth daily, Mobic 7.5 mg by mouth daily, prednisone 40 mg by mouth daily, Flomax 0.4 mg by mouth at supper. PHYSICAL EXAM VITAL SIGNS: Temperature 97.0, pulse 105, respiratory rate 16, blood pressure 133/60, oxygen saturation 95% on 3 L. GENERAL APPEARANCE: Lying in bed, not in distress. EYES: Pupils equal. Conjunctiva normal. NECK: JVD not raised. Mass not palpable. RESPIRATORY: Respiratory effort normal. Lungs diminished expiratory wheezing to auscultation. CARDIOVASCULAR: First and second sounds normal. No edema. ABDOMEN: Soft. Liver and spleen not palpable. No tenderness. No mass palpable. PSYCHIATRY: Able answer some simple straightforward questions by not and answers by nodding and trying to speak. Mood and affect normal. NEUROLOGICAL: Right-sided hemiplegia from previous stroke, right lower extremity atrophy, right arm contracted, has aphasia INVESTIGATIONS: White blood cell count 25.0, hemoglobin 10.4, sodium 126, chloride 96, BUN 15, creatinine 0.60 Accu-Cheks noted. ASSESSMENT: - possible right-sided severe multilobar pneumonia could be aspiration. -Chronic obstructive pulmonary disease. 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 -Hyperlipidemia. -Primary osteoarthritis. -Essential hypertension. -Benign prostatic hypertrophy. -Possible moderate protein calorie malnutrition with BMI of 18.6, decreased albumin and reduced muscle mass. PLAN: Cardiothoracic surgery saw the patient feels a bronchoscopy or percutaneous drainage may be in order down the road. Await input from pulmonary. Continue current antibiotic regimen, monitor patient's swallowing ability, will consult speech therapy for full evaluation. Plan of care discussed at the bedside with the and the patient, will follow. HELMET COVERER statement: Patient was seen and examined by nurse practitioner Vangie Willard and all elements of the case discussed with attending Dr. Torres
[2017-06-09] MEDS ORDERED: VANCOMYCIN IV PER PHARMACY 1 EACH MISC MISCELLANE PRN (13:04)
--- NOTE | 2017-06-09 13:21 | PN ---
PROGRESS NOTE DATE OF SERVICE: 06/09/2017. ATTENDING NOTE Patient is seen and examined by me. Discussed with the nurse practitioner, Anabelhany. This is a patient with right-sided hemiplegia, aphasia, presents with severe pneumonia, could be aspiration. is at the bedside. PHYSICAL EXAMINATION: Temperature 97, pulse 105, respirations 16. blood pressure 130/60, pulse ox 95% on 3 L. LUNGS: Diminished breath sounds on the right side. Patient is awake, follows commands. INVESTIGATIONS: White count 25, hemoglobin 10.4, potassium 4, sodium 126. ASSESSMENT: 1. Right-sided multilobar pneumonia, possibly aspiration. 2. Chronic obstructive pulmonary disease. 3. 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 4. Hyperlipidemia. 5. Primary osteoarthritis. 6. Essential hypertension. 7. Benign prostatic hypertrophy. 8. Moderate protein calorie malnutrition from body mass index of 18.6, decreased albumin, reduced muscle mass. 9. Hyponatremia, suspect hyposmolar. PLAN: Will maintain aspiration precautions. . Change the diet to pureed diet and honey- thick liquids. Await input from Cardiothoracic Surgery and Pulmonary. Care was discussed with the at the bedside. Antibiotics to continue. MMODL / IJN: [id number] /
--- NOTE | 2017-06-09 13:48 | P.CNPUL ---
History of Present Illness Consult date: 06/09/17 Reason for consult: COPD, pneumonia, lung mass, abnormal CXR/CT Chief complaint: Weakness and falling History of present illness: Consult dated 06/09/2017 86-year-old male well-known to my service. He sees Dr. Yonathan Wu as his primary doctor. Apparently brought in because of falling at home. It mentions here in the ER [facility] that he was having difficulty with breathing but I don't believe that was a problem. The patient apparently falling a couple times at home according to his . The patient really was not having any complaints of pneumonia although chest x-ray apparently revealed a pneumonic process in the right midlung. Computed tomography scan showed what appears to be a pneumonia with an air-fluid level. 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 The patient does have a previous history of CVA and does have called the eating and swallowing and probably is having significant microaspiration's of oropharyngeal contents. He does have bad dentition. Dr. wise and doesn't need to see Dr. Jones the oral surgeon for extractions. The patient does have a history of COPD/see him. Recently his COPD has been reasonably stable. Again I don't believe the COPD was reason why he came in and I don't believe that he was having any difficulty with his breathing. In addition to COPD and CVA, he has a history of arthritis hyperlipidemia hypertension and some other minor medical problems. He does have a previous history of MRSA infection. He was a former smoker. Review of Systems A 12 point review of system is positive for weakness and falling. I don't believe the COPD is currently active. In addition, he has been having difficulty with swallowing and has had some issues with possible aspiration. More recently, he isn't a problem with a steep. He's got poor dentition and periodontal disease and needs another a number of dental extractions. 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 History of Any Multi-Drug Resistant Organisms: None Reported Past Surgical History: Back Surgery Additional Past Surgical History / Comment(s): 1991 lumbar laminectomy with fusion, 1996 AAA repair Past Anesthesia/Blood Transfusion Reactions: No Reported Reaction Past Psychological History: No Psychological Hx Reported Smoking Status: Former smoker Past Alcohol Use History: None Reported Past Drug Use History: None Reported - Past Family History Father Family Medical History: Myocardial Infarction (MD) Additional Family Medical History / Comment(s): Father of a MD in his 80's. Mother Family Medical History: Hypertension Additional Family Medical History / Comment(s): Mother in her 80's Medications and Allergies Home Medications Medication Instructions Recorded Confirmed Type Aspirin EC [Ecotrin Low Dose] 81 mg PO DAILY 06/08/17 06/08/17 History Atorvastatin [Lipitor] 20 mg PO HS 06/08/17 06/08/17 History Celecoxib [CeleBREX] 200 mg PO DAILY 06/08/17 06/08/17 History Cranberry Fruit Extract [Cranberry] 200 mg PO DAILY 06/08/17 06/08/17 History Ipratropium-Albuterol Nebulize 3 ml INHALATION RT-TID 06/08/17 06/08/17 History [Duoneb 0.5 mg-3 mg/3 ml Soln] Losartan [Cozaar] 25 mg PO DAILY 06/08/17 06/08/17 History Multivit-Min/FA/Lycopen/Lutein 1 tab PO DAILY 06/08/17 06/08/17 History [Centrum Silver Tablet] Nitroglycerin Extended Release 6.5 mg PO Q12H 06/08/17 06/08/17 History [Nitro-Bid] Vitamin D3 With Aloe 1 tab PO DAILY 06/08/17 06/08/17 History Vits A,C,E/Lutein/Minerals 1 tab PO DAILY 06/08/17 06/08/17 History [Ocuvite with Lutein Tablet] Allergies Allergy/AdvReac Type Severity Reaction Status Date / Time No Known Allergies Allergy Verified 06/08/17 09:47 Physical Exam Osteopathic Statement: *. No significant issues noted on an osteopathic structural exam other than those noted in the History and Physical/Consult. Vitals: Vital Signs Temp Pulse Pulse Resp BP BP Pulse Ox 06/09/17 11:53 92 06/09/17 11:38 88 06/09/17 11:35 16 06/09/17 11:21 97 16 141/65 98 06/09/17 08:34 104 H 06/09/17 08:20 104 H 06/09/17 08:00 97.0 F L 105 H 16 133/60 95 06/09/17 03:54 89 19 06/09/17 03:52 96.9 F L 89 19 142/67 95 06/09/17 00:00 97.0 F L 96 19 167/75 99 06/08/17 20:00 97.4 F L 98 18 141/65 98 06/08/17 19:44 102 H 06/08/17 19:31 100 06/08/17 16:36 96 06/08/17 16:24 96 06/08/17 15:07 98 18 06/08/17 14:41 97.0 F L 98 18 155/73 97 06/08/17 14:02 98.8 F 97 18 156/67 94 L Intake and Output 06/08/17 06/09/17 06/09/17 22:59 06:59 14:59 Intake Total 440 300 120 Balance 440 300 120 Intake: Intake, IV Titration 100 Amount Cefepime 2 gm In Sodium 100 Chloride 0.9% 50 ml @ 100 mls/hr IVPB Q8H [facility] Rx#: [id number] Oral 440 200 120 Other: Voiding Method Diaper Diaper # Voids 2 2 Weight 63 kg No acute distress, oriented 3. HEENT examination is grossly unremarkable. Mucous membranes are moist. Neck supple. Full range of motion. No adenopathy. Cardiovascular examination reveals regular rhythm rate. S1-S2 normal. Lungs reveal mostly clear breath sounds. A few scattered rhonchi. Nothing well impressive. No wheezes or crackles. Abdomen soft. Extremities are intact. He does have weakness on the right side Skin without rash. Neurologic examination reveals difficulty speaking and also the weakness on the right side of his body. Results - Laboratory Findings CBC and BMP: 06/09/17 05:36 06/09/17 05:36 PT/INR, D-dimer PT 12.9 sec (9.0-12.0) H 06/08/17 09:50 INR 1.3 (<1.2) H 06/08/17 09:50 Abnormal lab findings: Abnormal Labs 06/08/17 06/08/17 06/08/17 09:50 09:50 09:50 WBC 26.5 H* RBC 3.75 L Hgb 11.1 L Hct 34.1 L Plt Count 626 H Neutrophils # 23.5 H Lymphocytes # PT 12.9 H INR 1.3 H Sodium 127 L Chloride 93 L Creatinine 0.62 L Glucose 116 H POC Glucose (mg/dL) Total Protein 6.0 L Albumin 2.3 L Urine Protein 06/08/17 06/08/17 06/09/17 13:00 20:11 00:12 WBC RBC Hgb Hct Plt Count Neutrophils # Lymphocytes # PT INR Sodium Chloride Creatinine Glucose POC Glucose (mg/dL) 170 H 168 H Total Protein Albumin Urine Protein Trace H 06/09/17 06/09/17 05:36 05:36 WBC 25.0 H* RBC 3.46 L Hgb 10.4 L Hct 31.8 L Plt Count 567 H Neutrophils # 23.3 H Lymphocytes # 0.9 L PT INR Sodium 126 L Chloride 96 L Creatinine 0.60 L Glucose 127 H POC Glucose (mg/dL) Total Protein Albumin Urine Protein - Diagnostic Findings Chest x-ray: image reviewed CT scan - chest: image reviewed (X-rays labs and medications are all reviewed. I also discussed the case with the thoracic surgeon.) Assessment and Plan (1) Lung abscess Current Visit: Yes Status: Acute Code(s): J85.2 - ABSCESS OF LUNG WITHOUT PNEUMONIA SNOMED Code(s): 43137693 (2) Abscess of lung with pneumonia Current Visit: Yes Status: Acute Code(s): J85.1 - ABSCESS OF LUNG WITH PNEUMONIA SNOMED Code(s): 960373157 (3) Abnormal CT scan, chest Current Visit: Yes Status: Acute Code(s): R93.8 - ABNORMAL FINDINGS ON DIAGNOSTIC IMAGING OF BODY STRUCTURES SNOMED Code(s): 937422953 (4) Abnormal finding on chest xray Current Visit: Yes Status: Acute Code(s): R93.8 - ABNORMAL FINDINGS ON DIAGNOSTIC IMAGING OF BODY STRUCTURES SNOMED Code(s): 420599225 (5) 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 Current Visit: Yes Status: Acute Code(s): I69.920 - APHASIA FOLLOWING UNSPECIFIED CEREBROVASCULAR DISEASE SNOMED Code(s): 816348037 (6) BPH (benign prostatic hyperplasia) Current Visit: Yes Status: Acute Code(s): N40.0 - BENIGN PROSTATIC HYPERPLASIA WITHOUT LOWER URINRY TRACT SYMP SNOMED Code(s): 274453899 (7) COPD (chronic obstructive pulmonary disease) Current Visit: Yes Status: Acute Code(s): J44.9 - CHRONIC OBSTRUCTIVE PULMONARY DISEASE, UNSPECIFIED SNOMED Code(s): 24104172 (8) Fall from standing Current Visit: Yes Status: Acute Code(s): W19.XXXA - UNSPECIFIED FALL, INITIAL ENCOUNTER SNOMED Code(s): 2269844 (9) History of cerebrovascular accident (CVA) with residual deficit Current Visit: Yes Status: Acute Code(s): I69.30 - UNSPECIFIED SEQUELAE OF CEREBRAL INFARCTION SNOMED Code(s): 758652822 (10) Hyperlipidemia Current Visit: Yes Status: Acute Code(s): E78.5 - HYPERLIPIDEMIA, UNSPECIFIED SNOMED Code(s): 44392747 (11) Hypertension Current Visit: Yes Status: Acute Code(s): I10 - ESSENTIAL (PRIMARY) HYPERTENSION SNOMED Code(s): 69680015 (12) Pneumonia Current Visit: Yes Status: Acute Code(s): J18.9 - PNEUMONIA, UNSPECIFIED ORGANISM SNOMED Code(s): 051234202 Plan: Plan dated 06/09/2017 The patient would benefit from an infectious disease consultation. The patient needs his usual breathing medications. I would not place the patient on any steroids because I do not believe the patient's having a COPD exacerbation. I would ask interventional radiology to place a small catheter in the lung number sepsis for drainage. If he does not respond, bronchoscopy might be considered. Time with Patient: Greater than 30
[2017-06-09] MEDS ORDERED: VANCOMYCIN 1,250 MG in SODIUM CHLORIDE 0.9% 250 ML IVPB ONE (14:00)
[2017-06-09] MEDS: SODIUM CHLORIDE TAB 1 GM TAB PO SCH ×2 (17:36→21:53)
[2017-06-09] MEDS: TAMSULOSIN 0.4 MG CAP.ER.24H PO SCH (17:36)
[2017-06-09] MEDS: ATORVASTATIN 20 MG TAB PO SCH (20:07)
[2017-06-09] MEDS: VANCOMYCIN 1,250 MG in SODIUM CHLORIDE 0.9% 250 ML IVPB SCH (23:25)
[2017-06-10] MEDS: CEFEPIME 2 GM in SODIUM CHLORIDE 0.9% 50 ML IVPB SCH ×3 (05:55→20:57)
[2017-06-10 06:19] LABS: Basophils % (A) 0 %; CH 30.7; CHCM 33.2; Eosinophils % (A) 0 %; HCT 31.2 % (39.0-53.0); HDW 2.68; HGB 10.2 gm/dL (13.0-17.5); Luc # (Auto) 0.18; Luc % (Auto) 1; Lymphocytes # (A) 1.8 k/uL (1.0-4.8); Lymphocytes % (A) 7 %; MCH 30.3 pg (25.0-35.0); MCHC 32.8 g/dL (31.0-37.0); MCV 92.5 fL (80.0-100.0); Monocytes # (A) 0.7 k/uL (0-1.0); Monocytes % (A) 3 %; Neutrophils # (A) 23.8 k/uL (1.3-7.7); Neutrophils % (A) 90 %; RBC 3.38 m/uL (4.30-5.90); RDW 13.1 % (11.5-15.5); WBC (Perox) 27.16
[2017-06-10 06:27] LABS: WBC 26.6 k/uL (3.8-10.6)
[2017-06-10 06:31] LABS: Anion Gap 7 mmol/L; Blood Urea Nitrogen 17 mg/dL (9-20); Calcium 8.9 mg/dL (8.4-10.2); Carbon Dioxide 22 mmol/L (22-30); Chloride 102 mmol/L (98-107); Glucose 90 mg/dL (74-99); Non-African American GFR(MDRD) >60 (>60 ml/min/1.73 sqM); Sodium 131 mmol/L (137-145)
[2017-06-10] MEDS: IPRATROPIUM-ALBUTEROL 3 ML NEB INHALATION SCH ×4 (07:41→20:17)
[2017-06-10] MEDS: SODIUM CHLORIDE TAB 1 GM TAB PO SCH ×3 (08:22→20:56)
[2017-06-10] MEDS: ENOXAPARIN 40 MG/0.4 ML SYRINGE SQ SCH (08:22)
[2017-06-10] MEDS: MELOXICAM 7.5 MG TAB PO SCH (08:22)
[2017-06-10] MEDS: MULTIVITAMINS, THERA 1 EACH TAB PO SCH (08:22)
[2017-06-10] MEDS: NITROGLYCERIN EXTENDED RELEASE 6.5 MG CAPSULE.ER PO SCH ×2 (08:22→20:56)
[2017-06-10] MEDS: ASPIRIN 81 MG PO SCH (08:22)
[2017-06-10] MEDS: LOSARTAN 25 MG TAB PO SCH (08:22)
--- NOTE | 2017-06-10 09:38 | P.PN ---
Subjective Progress Note Date: 06/10/17 Principal diagnosis: Abscess to his right lower lobe lung with pneumonia, abnormal computed tomography scan chest, recent fall from standing, history of cerebrovascular accident with residual deficit, right hemiplegia, aphasic, hypertension, hyperlipidemia, chronic obstructive pulmonary disease, benign prostatic hyperplasia. This is an 86-year-old gentleman who is followed by Dr. Yonathan Ulrich on an outpatient basis. Patient is also followed by Dr. Skaggs on an outpatient basis for his COPD. Patient had a recent fall from standing at home while trying to use his urinal. He also has recent complaints of increasing shortness of breath 1 week with increased sputum production. He has a history of a CVA in 1993 with post stroke right hemiplegia and aphasia. His reports that recently he has been having increase difficulty with swallowing his food. EMS was called by his after he fell and was subsequently brought to [facility] for further workup and evaluation. While the patient was in the emergency department he underwent a chest x-ray in computed tomography scan of his chest which demonstrated an abnormal density to his right lower lobe measuring 10 cm x 10 cm x 6 cm. He he was subsequently admitted for antibiotic treatment and evaluation by pulmonary medicine and cardiothoracic surgery. Patient is in bed with his head elevated. He is awake and alert. No acute distress. He is on 2 L nasal cannula. He shakes his head no when asked if having any further complaints of shortness of breath. Objective - Vital Signs Vital signs: Vital Signs Temp 97.5 F L 06/10/17 08:22 Pulse 107 H 06/10/17 08:22 Resp 20 06/10/17 08:22 BP 129/59 06/10/17 08:22 Pulse Ox 93 L 06/10/17 08:22 Intake & Output 06/09/17 06/10/17 06/10/17 18:59 06:59 18:59 Intake Total 840 450 Output Total 350 Balance 840 100 Weight 63 kg 66.5 kg Intake: Intake, IV Titration 100 Amount Cefepime 2 gm In Sodium 100 Chloride 0.9% 50 ml @ 100 mls/hr IVPB Q8H [facility] Rx#: [id number] Oral 840 350 Output: Urine 350 Other: Voiding Method Diaper Diaper Incontinent Incontinent # Voids 2 - Constitutional General appearance: Present: cooperative, no acute distress, thin - EENT Eyes: Present: PERRLA ENT: Present: hearing grossly normal - Neck Details: No JVD, no lymphadenopathy. - Respiratory Details: Lung sounds with few scattered rhonchi throughout, diminished to his bilateral bases right greater than his left. Respirations are symmetrical and nonlabored. Oxygen saturation are 93% on 2 L nasal cannula. - Cardiovascular Details: Regular rhythm and rate. S1 and S2 present, negative for S3, gallop or murmur. No edema present. Remote telemetry showing sinus tachycardia heart rate 109. - Gastrointestinal Gastrointestinal Comment(s): Abdomen is soft, nontender and nondistended. Active bowel sounds to all 4 abdominal quadrants. No guarding or rigidity. - Genitourinary Genitourinary Comment(s): Incontinent of urine, wearing a brief. - Integumentary Integumentary Comment(s): Ecchymotic area to his right elbow, dressing is clean dry and intact. - Neurologic Neurologic Comment(s): Aphasic, right-sided hemiplegia. - Musculoskeletal Musculoskeletal Comment(s): Right-sided hemiplegia. Musculoskeletal: Present: generalized weakness - Psychiatric Psychiatric: Present: appropriate affect, intact judgment & insight - Allied health notes Allied health notes reviewed: nursing - Labs CBC & Chem 7: 06/10/17 05:34 06/10/17 05:34 Labs: Abnormal Lab Results - Last 24 Hours (Table) 06/09/17 06/10/17 06/10/17 Range/Units 05:36 05:34 05:34 WBC 26.6 H* (3.8-10.6) k/uL RBC 3.38 L (4.30-5.90) m/uL Hgb 10.2 L (13.0-17.5) gm/dL Hct 31.2 L (39.0-53.0) % Plt Count 578 H (150-450) k/uL Neutrophils # 23.8 H (1.3-7.7) k/uL Sodium 131 L (137-145) mmol/L Creatinine 0.60 L (0.66-1.25) mg/dL Osmolality 270 L (280-301) mosm/kg Microbiology - Last 24 Hours (Table) 06/08/17 09:50 Blood Culture Gram Stain - Preliminary Blood Blood Culture - Preliminary Coagulase Negative Staph 06/08/17 09:50 Blood Culture - Final Blood Assessment and Plan (1) Abnormal finding on chest xray Current Visit: Yes Status: Acute Code(s): R93.8 - ABNORMAL FINDINGS ON DIAGNOSTIC IMAGING OF BODY STRUCTURES SNOMED Code(s): 704155303 (2) Abnormal CT scan, chest Current Visit: Yes Status: Acute Code(s): R93.8 - ABNORMAL FINDINGS ON DIAGNOSTIC IMAGING OF BODY STRUCTURES SNOMED Code(s): 388879539 (3) Hyperlipidemia Current Visit: Yes Status: Acute Code(s): E78.5 - HYPERLIPIDEMIA, UNSPECIFIED SNOMED Code(s): 50082762 (4) Hypertension Current Visit: Yes Status: Acute Code(s): I10 - ESSENTIAL (PRIMARY) HYPERTENSION SNOMED Code(s): 77428991 (5) COPD (chronic obstructive pulmonary disease) Current Visit: Yes Status: Acute Code(s): J44.9 - CHRONIC OBSTRUCTIVE PULMONARY DISEASE, UNSPECIFIED SNOMED Code(s): 10708527 (6) History of cerebrovascular accident (CVA) with residual deficit Current Visit: Yes Status: Acute Code(s): I69.30 - UNSPECIFIED SEQUELAE OF CEREBRAL INFARCTION SNOMED Code(s): 836691426 (7) 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 Current Visit: Yes Status: Acute Code(s): I69.920 - APHASIA FOLLOWING UNSPECIFIED CEREBROVASCULAR DISEASE SNOMED Code(s): 448324017 (8) BPH (benign prostatic hyperplasia) Current Visit: Yes Status: Acute Code(s): N40.0 - BENIGN PROSTATIC HYPERPLASIA WITHOUT LOWER URINRY TRACT SYMP SNOMED Code(s): 915545135 (9) Fall from standing Current Visit: Yes Status: Acute Code(s): W19.XXXA - UNSPECIFIED FALL, INITIAL ENCOUNTER SNOMED Code(s): 1071362 (10) Bilateral carotid bruits Current Visit: Yes Status: Acute Code(s): R09.89 - OTH SYMPTOMS AND SIGNS INVOLVING THE CIRC AND RESP SYSTEMS SNOMED Code(s): 277815000 Plan: 1. Pulmonary recommendations per Dr. Skaggs, interventional radiology has been asked to place a right chest pigtail catheter. 2. Infectious disease has been consulted. 3. DVT and GI prophylaxis in place. 4. Speech therapy has been consulted for concerns of aspiration. 5. More recommendations to follow as patient progresses. Time with Patient: Less than 30
--- NOTE | 2017-06-10 11:29 | P.PN ---
Subjective Progress Note Date: 06/10/17 Principal diagnosis: Lung infection, lung abscess Progress note dated 06/10/2017 86-year-old male with a history of previous CVA. He also has likely ongoing aspiration syndrome. He was admitted because of frequent falls. Was not really having any respiratory issues. Not coughing. No difficulty breathing. A chest x-ray did reveal what appears to be an infiltrate in the right midlung a computed tomography scan showed a lesion in the right midlung with air-fluid levels. 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 The patient was going to be seen by infectious disease. I do note that he has an appointment to see one of the oral surgeons for dental extractions. Suffers from periodontal disease. In addition to his CVA, I do see him for COPD. He also has a history of arthritis hyperlipidemia and hypertension. Objective - Vital Signs Vital signs: Vital Signs Temp 97.5 F L 06/10/17 08:22 Pulse 107 H 06/10/17 08:22 Resp 20 06/10/17 08:22 BP 129/59 06/10/17 08:22 Pulse Ox 93 L 06/10/17 08:22 Intake & Output 06/09/17 06/10/17 06/10/17 18:59 06:59 18:59 Intake Total 840 450 Output Total 350 Balance 840 100 Weight 63 kg 66.5 kg Intake: Intake, IV Titration 100 Amount Cefepime 2 gm In Sodium 100 Chloride 0.9% 50 ml @ 100 mls/hr IVPB Q8H [facility] Rx#: [id number] Oral 840 350 Output: Urine 350 Other: Voiding Method Diaper Diaper Incontinent Incontinent # Voids 2 - Exam No acute distress, oriented 3. HEENT examination is grossly unremarkable. Mucous membranes are moist. No oral lesions. Neck supple. Full range of motion. No adenopathy thyromegaly or neck vein distention. Cardiovascular examination reveals regular rhythm rate. S1-S2 normal. No S3 or S4. No discernible murmur noted. Lungs reveal diminished breath sounds. Does not take road the breast. A few scattered rhonchi. Abdomen soft bowel sounds are heard. No masses or tenderness. Extremities reveal weakness/paralysis on the right side. No cyanosis clubbing or significant edema. Skin is without rash or lesion. Neurologic examination is brief and shows the residual weakness from the previous stroke - Labs CBC & Chem 7: 06/10/17 05:34 06/10/17 05:34 Labs: Abnormal Lab Results - Last 24 Hours (Table) 06/09/17 06/10/17 06/10/17 Range/Units 05:36 05:34 05:34 WBC 26.6 H* (3.8-10.6) k/uL RBC 3.38 L (4.30-5.90) m/uL Hgb 10.2 L (13.0-17.5) gm/dL Hct 31.2 L (39.0-53.0) % Plt Count 578 H (150-450) k/uL Neutrophils # 23.8 H (1.3-7.7) k/uL Sodium 131 L (137-145) mmol/L Creatinine 0.60 L (0.66-1.25) mg/dL Osmolality 270 L (280-301) mosm/kg Microbiology - Last 24 Hours (Table) 06/08/17 09:50 Blood Culture Gram Stain - Preliminary Blood Blood Culture - Preliminary Coagulase Negative Staph Assessment and Plan (1) Lung abscess Current Visit: Yes Status: Acute Code(s): J85.2 - ABSCESS OF LUNG WITHOUT PNEUMONIA SNOMED Code(s): 30666974 (2) Abscess of lung with pneumonia Current Visit: Yes Status: Acute Code(s): J85.1 - ABSCESS OF LUNG WITH PNEUMONIA SNOMED Code(s): 147208729 (3) Abnormal CT scan, chest Current Visit: Yes Status: Acute Code(s): R93.8 - ABNORMAL FINDINGS ON DIAGNOSTIC IMAGING OF BODY STRUCTURES SNOMED Code(s): 450086695 (4) Abnormal finding on chest xray Current Visit: Yes Status: Acute Code(s): R93.8 - ABNORMAL FINDINGS ON DIAGNOSTIC IMAGING OF BODY STRUCTURES SNOMED Code(s): 955577887 (5) 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 Current Visit: Yes Status: Acute Code(s): I69.920 - APHASIA FOLLOWING UNSPECIFIED CEREBROVASCULAR DISEASE SNOMED Code(s): 469823379 (6) BPH (benign prostatic hyperplasia) Current Visit: Yes Status: Acute Code(s): N40.0 - BENIGN PROSTATIC HYPERPLASIA WITHOUT LOWER URINRY TRACT SYMP SNOMED Code(s): 898959727 (7) COPD (chronic obstructive pulmonary disease) Current Visit: Yes Status: Acute Code(s): J44.9 - CHRONIC OBSTRUCTIVE PULMONARY DISEASE, UNSPECIFIED SNOMED Code(s): 61281394 (8) Fall from standing Current Visit: Yes Status: Acute Code(s): W19.XXXA - UNSPECIFIED FALL, INITIAL ENCOUNTER SNOMED Code(s): 7837730 (9) History of cerebrovascular accident (CVA) with residual deficit Current Visit: Yes Status: Acute Code(s): I69.30 - UNSPECIFIED SEQUELAE OF CEREBRAL INFARCTION SNOMED Code(s): 412789302 (10) Hyperlipidemia Current Visit: Yes Status: Acute Code(s): E78.5 - HYPERLIPIDEMIA, UNSPECIFIED SNOMED Code(s): 13609329 (11) Hypertension Current Visit: Yes Status: Acute Code(s): I10 - ESSENTIAL (PRIMARY) HYPERTENSION SNOMED Code(s): 08829633 (12) Pneumonia Current Visit: Yes Status: Acute Code(s): J18.9 - PNEUMONIA, UNSPECIFIED ORGANISM SNOMED Code(s): 729600612 Plan: Plan dated 06/09/2017 The patient would benefit from an infectious disease consultation. The patient needs his usual breathing medications. I would not place the patient on any steroids because I do not believe the patient's having a COPD exacerbation. I would ask interventional radiology to place a small catheter in the lung number sepsis for drainage. If he does not respond, bronchoscopy might be considered. Plan dated 06/10/2017 The patient as yet to be seen by infectious disease. We did ask speech pathology to see the patient to evaluate his swallowing. The patient does choke on food according to his . In addition, we did ask interventional radiology to consider placing a pigtail catheter in the cavity in the right lung. I think this would be adequate along with good antibiotic therapy. We' ll continue to follow. Medications are reviewed. Prognosis is guarded. Time with Patient: Less than 30
[2017-06-10] MEDS: VANCOMYCIN 1,250 MG in SODIUM CHLORIDE 0.9% 250 ML IVPB SCH (12:19)
--- NOTE | 2017-06-10 14:54 | P.PN ---
Progress Note - Text Progress Note Date: 06/10/17 DATE OF SERVICE: 06/10/2017 PRESENTING COMPLAINT: Fall, shortness of breath HISTORY OF PRESENT ILLNESS: 86-year-old male with right-sided hemiplegia presents after a fall sustained at home trying to use the urinal and increasing shortness of breath. INTERVAL HISTORY: 06/10/2017: Patient seen in follow-up, no family at the bedside, appears comfortable. Appears aware of his surroundings recognizes care staff and myself. Answers questions by nodding his head and trying to speak some. He tolerates his diet, cough noted no sputum production, remains on oxygen. Pulmonology suggests placement of pigtail catheter the right lung for drainage. 06/09/2017: Patient seen in follow-up, remains at the bedside, appears comfortable, appears aware of his surroundings, recognizes care staff, tolerating his diet, some concerns expressed by the that patient has a tendency to put too much in his mouth and there may be possibility of aspiration. Cough is improved, producing less sputum. Remains on oxygen. REVIEW OF SYSTEMS: Done for constitutional ,cardiovascular, GI, pulmonary with relevant findings as above. CURRENT MEDICATIONS DuoNeb, aspirin, Lipitor, cefepime 2 g IV piggyback, Lovenox, Cozaar 25 mg by mouth daily, Mobic 7.5 mg by mouth daily, prednisone 40 mg by mouth daily, Flomax 0.4 mg by mouth at supper. PHYSICAL EXAM VITAL SIGNS: Temperature 97.0, pulse 105, respiratory rate 16, blood pressure 133/60, oxygen saturation 95% on 3 L. GENERAL APPEARANCE: Lying in bed, not in distress. EYES: Pupils equal. Conjunctiva normal. NECK: JVD not raised. Mass not palpable. RESPIRATORY: Respiratory effort normal. Lungs diminished expiratory wheezing to auscultation. CARDIOVASCULAR: First and second sounds normal. No edema. ABDOMEN: Soft. Liver and spleen not palpable. No tenderness. No mass palpable. PSYCHIATRY: Able answer some simple straightforward questions by not and answers by nodding and trying to speak. Mood and affect normal. NEUROLOGICAL: Right-sided hemiplegia from previous stroke, right lower extremity atrophy, right arm contracted, has aphasia INVESTIGATIONS: White blood cell count 25.0, hemoglobin 10.4, sodium 126, chloride 96, BUN 15, creatinine 0.60 Accu-Cheks noted. ASSESSMENT: - right-sided severe multilobar pneumonia could be aspiration slow to respond -Chronic obstructive pulmonary disease. 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 -Hyperlipidemia. -Primary osteoarthritis. -Essential hypertension. -Benign prostatic hypertrophy. -moderate protein calorie malnutrition with BMI of 18.6, decreased albumin and reduced muscle mass. -Hyponatremia, suspect hypoosmolar, improving PLAN: Await input from interventional radiology regarding placement of a pigtail catheter for drainage of the right lung as well as input from speech therapy regarding possible aspiration while eating. Infectious disease consulted await input. Continue with current medication and treatment plan Plan of care discussed at the bedside, we will follow closely. GINGER FARMER statement: Patient was seen and examined by nurse practitioner Vangie Willard and all elements of the case discussed with attending Dr. Torres
[2017-06-10] MEDS: TAMSULOSIN 0.4 MG CAP.ER.24H PO SCH (17:10)
[2017-06-10] MEDS: FORMOTEROL FUMARATE 20 MCG/2 ML NEBU INHALATION SCH (20:17)
[2017-06-10] MEDS: BUDESONIDE 1 MG/2 ML NEBU INHALATION SCH (20:17)
[2017-06-10] MEDS: ATORVASTATIN 20 MG TAB PO SCH (20:56)
[2017-06-11] MEDS: VANCOMYCIN 1,250 MG in SODIUM CHLORIDE 0.9% 250 ML IVPB SCH ×3 (00:52→23:11)
[2017-06-11 00:53] LABS: Glucose,Whole Blood 113 mg/dL (75-99)
--- NOTE | 2017-06-11 00:55 | P.CONS ---
History of Present Illness - Reason for Consult Consult date: 06/10/17 - Chief Complaint Lung abscess - History of Present Illness 86-year-old male presents to hospital with concerns to pneumonia. He has a known history of stroke and does have some difficulties with swallowing. He also has significant periodontal disease. He has been seen by pulmonary medicine as well as cardiothoracic surgery because of the onset of a significant lung abscess. It appears there has been a request for percutaneous drainage from interventional radiology. At this time this 86-year-old gentleman is able to communicate with the forward and with response to yes and no questions. He relates that he is quite comfortable and does not have any significant discomfort at this time. His shortness of breath is improved. He is not having difficulties with choking at the moment. He did have fever and this is improved. Review of Systems HEENT:Denies headache or acute visual change. Denies sinus or mouth discomforts. Denies neck stiffness or pain. Denies significant oral cavity pain. Denies difficulty on swallowing. Lungs: Having some cough and sputum production no hemoptysis Cardiovascular: Denies significant chest pain, chest wall pain, orthopnea, dyspnea on exertion, syncope Gastrointestinal:Denies nausea, vomiting, diarrhea, constipation, hematemesis, melena, hematochezia. No no significant change of bowel habit noticed. Musculoskeletal: denies significant myalgias or arthralgias. No new joint swelling. Denies new back pain. Skin: Denies new rash or lesions. No new ulcers or wounds are related.. Neuro: No headache, denies seizures, no change in his right-sided weakness. Psychiatric:Denies anxiety or depression. Endocrine: Has fatigue but weight is stable Past Medical History Past Medical History: COPD, CVA/TIA, Hyperlipidemia, Hypertension, Pneumonia Additional Past Medical History / Comment(s): 1993 CVA with R sided hemiplegia and aphasia, pt can swallow but is on a soft diet d/t problems with his lower teeth, recently-difficulty with urinating small amounts and having increased weakness/falls, BPH, low back pain, bronchitis, pneumonias, past R lower ext/ foot fracture. History of Any Multi-Drug Resistant Organisms: None Reported Past Surgical History: Back Surgery Additional Past Surgical History / Comment(s): 1991 lumbar laminectomy with fusion, 1996 AAA repair Past Anesthesia/Blood Transfusion Reactions: No Reported Reaction Past Psychological History: No Psychological Hx Reported Smoking Status: Former smoker Past Alcohol Use History: None Reported Past Drug Use History: None Reported - Past Family History Father Family Medical History: Myocardial Infarction (VT) Additional Family Medical History / Comment(s): Father of a VT in his 80's. Mother Family Medical History: Hypertension Additional Family Medical History / Comment(s): Mother in her 80's Medications and Allergies Home Medications and Allergies Comment(s): Current Medications Albuterol/Ipratropium (Duoneb 0.5 Mg-3 Mg/3 Ml Soln) 3 ml INHALATION RT-QID [facility] Last Admin: 06/10/17 20:17 Dose: 3 ml Aspirin (Aspirin) 81 mg PO DAILY [facility] Last Admin: 06/10/17 08:22 Dose: 81 mg Atorvastatin Calcium (Lipitor) 20 mg PO HS [facility] Last Admin: 06/10/17 20:56 Dose: 20 mg Budesonide (Pulmicort) 1 mg INHALATION RT-BID [facility] Last Admin: 06/10/17 20:17 Dose: 1 mg Enoxaparin Sodium (Lovenox) 40 mg SQ DAILY [facility] Last Admin: 06/10/17 08:22 Dose: 40 mg Formoterol Fumarate (Perforomist) 20 mcg INHALATION RT-BID [facility] Last Admin: 06/10/17 20:17 Dose: 20 mcg Cefepime HCl 2 gm/ Sodium (Chloride) 50 mls @ 100 mls/hr IVPB Q8H [facility] Last Admin: 06/10/17 20:57 Dose: 100 mls/hr Vancomycin HCl 1,250 mg/ (Sodium Chloride) 250 mls @ 125 mls/hr IVPB Q12H [facility] Last Admin: 06/10/17 12:19 Dose: 125 mls/hr Losartan Potassium (Cozaar) 25 mg PO DAILY [facility] Last Admin: 06/10/17 08:22 Dose: 25 mg Meloxicam (Mobic) 7.5 mg PO DAILY [facility] Last Admin: 06/10/17 08:22 Dose: 7.5 mg Miscellaneous Information (Vancomycin Trough Due) 0 each MISCELLANE DIRECTED ONE Stop: 06/11/17 11:01 Multivitamins (Theragran) 1 each PO 1200 [facility] Last Admin: 06/10/17 08:22 Dose: 1 each Nitroglycerin (Nitro-Bid) 6.5 mg PO Q12HR [facility] Last Admin: 06/10/17 20:56 Dose: 6.5 mg Sodium Chloride (Sodium Chloride Tab) 1 gm PO TID [facility] Last Admin: 06/10/17 20:56 Dose: 1 gm Tamsulosin HCl (Flomax) 0.4 mg PO PC-SUPPER [facility] Last Admin: 06/10/17 17:10 Dose: 0.4 mg Home Medications Medication Instructions Recorded Confirmed Type Aspirin EC [Ecotrin Low Dose] 81 mg PO DAILY 06/08/17 06/08/17 History Atorvastatin [Lipitor] 20 mg PO HS 06/08/17 06/08/17 History Celecoxib [CeleBREX] 200 mg PO DAILY 06/08/17 06/08/17 History Cranberry Fruit Extract [Cranberry] 200 mg PO DAILY 06/08/17 06/08/17 History Ipratropium-Albuterol Nebulize 3 ml INHALATION RT-TID 06/08/17 06/08/17 History [Duoneb 0.5 mg-3 mg/3 ml Soln] Losartan [Cozaar] 25 mg PO DAILY 06/08/17 06/08/17 History Multivit-Min/FA/Lycopen/Lutein 1 tab PO DAILY 06/08/17 06/08/17 History [Centrum Silver Tablet] Nitroglycerin Extended Release 6.5 mg PO Q12H 06/08/17 06/08/17 History [Nitro-Bid] Vitamin D3 With Aloe 1 tab PO DAILY 06/08/17 06/08/17 History Vits A,C,E/Lutein/Minerals 1 tab PO DAILY 06/08/17 06/08/17 History [Ocuvite with Lutein Tablet] Allergies Allergy/AdvReac Type Severity Reaction Status Date / Time No Known Allergies Allergy Verified 06/08/17 09:47 Physical Exam Vitals: Vital Signs Temp Pulse Pulse Resp BP Pulse Ox 06/10/17 23:00 98.4 F 120 H 32 H 149/75 91 L 06/10/17 20:34 115 H 06/10/17 20:20 115 H 06/10/17 20:19 120 H 06/10/17 20:08 120 H 06/10/17 17:40 92 L 06/10/17 17:35 96.8 F L 110 H 16 150/70 85 L 11/19/17 16:32 100 06/10/17 16:20 96 06/10/17 15:45 98.9 F 105 H 18 143/65 97 06/10/17 11:49 100 06/10/17 11:35 100 06/10/17 08:22 97.5 F L 107 H 20 129/59 93 L 06/10/17 07:54 104 H 06/10/17 07:42 96 06/10/17 03:47 98 17 06/10/17 03:45 98.3 F 98 17 145/76 97 Intake and Output 06/10/17 06/10/17 06/11/17 14:59 22:59 06:59 Intake Total 350 100 Balance 350 100 Intake: Intake, IV Titration 250 Amount Vancomycin 1,250 mg In 250 Sodium Chloride 0.9% 250 ml @ 125 mls/hr IVPB Q12H [facility] Rx#:[id number] Oral 100 100 Other: Voiding Method Diaper Diaper Incontinent Incontinent # Voids 1 # Bowel Movements 1 86-year-old male who is comfortable. He has the obvious right sided weakness. He however does have the ability to utilize his mouth and he does not drool HEENT: Anicteric conjunctiva are pink and moist nasal mucosa grossly intact without significant lesions, there is no thrush. Oral mucosa somewhat dry Neck: The neck is supple without significant lymphadenopathy or thyromegaly. Lungs: There are symmetrical air entry. On the right posterior chest is evidence of bronchial sounds as well as dullness some expiratory wheezes are heard Heart: Regular rate and rhythm with an audible S1-S2, no S3 no S4. There is no significant murmur click or rub, PMI was nondisplaced. Abdomen: Positive bowel sounds soft and nontender without palpable masses or organomegaly. There was no guarding or rebound. Extremities: The upper extremities have excellent pulses they are symmetric, no significant petechiae or telangiectasia. No splinter hemorrhages were noted. The lower extremities are free from significant edema. The peripheral pulses were 2+ and symmetric. Neuro: Patient is pleasant and cooperative. He has started to person and place. He has the dense right hemiparesis with difficulty with speech. However able to utilize a picture board and answer yes or no questions Results CBC & Chem 7: 06/10/17 05:34 06/10/17 05:34 Labs: Abnormal Lab Results - Last 24 Hours (Table) 06/10/17 06/10/17 06/10/17 Range/Units 05:34 05:34 23:13 WBC 26.6 H* (3.8-10.6) k/uL RBC 3.38 L (4.30-5.90) m/uL Hgb 10.2 L (13.0-17.5) gm/dL Hct 31.2 L (39.0-53.0) % Plt Count 578 H (150-450) k/uL Neutrophils # 23.8 H (1.3-7.7) k/uL Sodium 131 L (137-145) mmol/L Creatinine 0.60 L (0.66-1.25) mg/dL Troponin I 0.193 H* (0.000-0.034) ng/mL Microbiology - Last 24 Hours (Table) 06/08/17 09:50 Blood Culture Gram Stain - Final Blood Blood Culture - Final Staphylococcus epidermidis Laboratory Results WBC 26.6 k/uL (3.8-10.6) H* 06/10/17 05:34 RBC 3.38 m/uL (4.30-5.90) L 06/10/17 05:34 Hgb 10.2 gm/dL (13.0-17.5) L 06/10/17 05:34 Hct 31.2 % (39.0-53.0) L 06/10/17 05:34 MCV 92.5 fL (80.0-100.0) 06/10/17 05:34 MCH 30.3 pg (25.0-35.0) 06/10/17 05:34 MCHC 32.8 g/dL (31.0-37.0) 06/10/17 05:34 RDW 13.1 % (11.5-15.5) 06/10/17 05:34 Plt Count 578 k/uL (150-450) H 06/10/17 05:34 Neutrophils % 90 % 06/10/17 05:34 Lymphocytes % 7 % 06/10/17 05:34 Monocytes % 3 % 06/10/17 05:34 Eosinophils % 0 % 06/10/17 05:34 Basophils % 0 % 06/10/17 05:34 Neutrophils # 23.8 k/uL (1.3-7.7) H 06/10/17 05:34 Lymphocytes # 1.8 k/uL (1.0-4.8) 06/10/17 05:34 Monocytes # 0.7 k/uL (0-1.0) 06/10/17 05:34 Eosinophils # 0.0 k/uL (0-0.7) 06/10/17 05:34 Basophils # 0.0 k/uL (0-0.2) 06/10/17 05:34 Manual Slide Review Performed 06/08/17 09:50 Toxic Granulation Present 06/08/17 09:50 Poikilocytosis (manual Present 06/08/17 09:50 PT 12.9 sec (9.0-12.0) H 06/08/17 09:50 INR 1.3 (<1.2) H 06/08/17 09:50 APTT 28.4 sec (22.0-30.0) 06/08/17 09:50 Sodium 131 mmol/L (137-145) L 06/10/17 05:34 Potassium 4.0 mmol/L (3.5-5.1) 06/10/17 05:34 Chloride 102 mmol/L (98-107) 06/10/17 05:34 Carbon Dioxide 22 mmol/L (22-30) 06/10/17 05:34 Anion Gap 7 mmol/L 06/10/17 05:34 BUN 17 mg/dL (9-20) 06/10/17 05:34 Creatinine 0.60 mg/dL (0.66-1.25) L 06/10/17 05:34 Est GFR (MDRD) Af Amer >60 (>60 ml/min/1.73 sqM) 06/10/17 05:34 Est GFR (MDRD) Non-Af >60 (>60 ml/min/1.73 sqM) 06/10/17 05:34 Glucose 90 mg/dL (74-99) 06/10/17 05:34 POC Glucose (mg/dL) 168 mg/dL (75-99) H 06/09/17 00:12 POC Glu Commodities Manager ID Nico Bradley 06/09/17 00:12 Osmolality 270 mosm/kg (280-301) L 06/09/17 05:36 Plasma Lactic Acid Saulo 1.3 mmol/L (0.7-2.0) 06/08/17 09:50 Calcium 8.9 mg/dL (8.4-10.2) 06/10/17 05:34 Magnesium 2.0 mg/dL (1.6-2.3) 06/08/17 09:50 Total Bilirubin 0.6 mg/dL (0.2-1.3) 06/08/17 09:50 AST 31 U/L (17-59) 06/08/17 09:50 ALT 68 U/L (21-72) 06/08/17 09:50 Alkaline Phosphatase 119 U/L (38-126) 06/08/17 09:50 Total Creatine Kinase 75 U/L (55-170) 06/08/17 09:50 CK-MB (CK-2) 1.1 ng/mL (0.0-2.4) 06/08/17 09:50 CK-MB (CK-2) Rel Index 1.5 06/08/17 09:50 Troponin I 0.193 ng/mL (0.000-0.034) H* 06/10/17 23:13 NT-Pro-B Natriuret Pep 1690 pg/mL 06/08/17 09:50 Total Protein 6.0 g/dL (6.3-8.2) L 06/08/17 09:50 Albumin 2.3 g/dL (3.5-5.0) L 06/08/17 09:50 Urine Color Yellow 06/08/17 13:00 Urine Appearance Clear (Clear) 06/08/17 13:00 Urine pH 6.0 (5.0-8.0) 06/08/17 13:00 Ur Specific Thayer 1.013 (1.001-1.035) 06/08/17 13:00 Urine Protein Trace (Negative) H 06/08/17 13:00 Urine Glucose (UA) Negative (Negative) 06/08/17 13:00 Urine Ketones Negative (Negative) 06/08/17 13:00 Urine Blood Negative (Negative) 06/08/17 13:00 Urine Nitrite Negative (Negative) 06/08/17 13:00 Urine Bilirubin Negative (Negative) 06/08/17 13:00 Urine Urobilinogen 2.0 mg/dL (<2.0) 06/08/17 13:00 Ur Leukocyte Esterase Negative (Negative) 06/08/17 13:00 Microbiology 06/08/17 09:50 Blood Blood Culture Gram Stain - Final 06/08/17 09:50 Blood Blood Culture - Final Staphylococcus epidermidis 06/08/17 09:50 Blood Blood Culture - Final CT scan - chest: report reviewed (Significant abscess multiloculated right lower lobe) Assessment and Plan (1) Abscess of lung with pneumonia Narrative/Plan: 86-year-old male presents to hospital with alteration in his status in about evidence of a significant right lower lobe pulmonary abscess. 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 Fortunately patient is showing some improvement although he does have an extensive leukocytosis. Interventional radiology has been consulted and a percutaneous pigtail catheter drainage of the lung abscesses been requested. Culture should be obtained at the time of the procedure. Other cultures are process. Leukocytosis appears to related to his significant abscess and he has not been receiving large amounts of steroids at this time. Blood cultures are negative. Further evaluation to his swallowing is in process. Does have evidence of protein calorie malnutrition. Current Visit: Yes Status: Acute Code(s): J85.1 - ABSCESS OF LUNG WITH PNEUMONIA SNOMED Code(s): 353889756 (2) Leukocytosis Current Visit: Yes Status: Acute Code(s): D72.829 - ELEVATED WHITE BLOOD CELL COUNT, UNSPECIFIED SNOMED Code(s): 303053240 (3) History of cerebrovascular accident (CVA) with residual deficit Current Visit: Yes Status: Acute Code(s): I69.30 - UNSPECIFIED SEQUELAE OF CEREBRAL INFARCTION SNOMED Code(s): 087188724
[2017-06-11] MEDS ORDERED: DILTIAZEM 125 MG in SODIUM CHLORIDE 0.9% 100 ML IV SCH (01:00)
[2017-06-11] MEDS ORDERED: DILTIAZEM 5 MG/ML 5 ML VIAL IVP STA (01:01)
[2017-06-11] MEDS ORDERED: METOPROLOL TARTRATE 25 MG TAB PO STA (01:50)
[2017-06-11] MEDS ORDERED: FUROSEMIDE 10 MG/ML 4 ML VIAL ONE (04:06)
[2017-06-11] MEDS ORDERED: FUROSEMIDE 10 MG/ML 4 ML VIAL IV STA (04:07)
--- NOTE | 2017-06-11 04:44 | XR ---
EXAM: XR Chest, 1 View CLINICAL HISTORY: Respiratory distress TECHNIQUE: Frontal view of the chest. COMPARISON: Chest x-ray dated 06/08/2017 FINDINGS: Lungs: Airspace opacities seen throughout the right lung and to a lesser extent the medial left lung. Findings are concerning for an inflammatory or infectious process with superimposed pulmonary vascular congestion not excluded. Emphysematous changes. Pleural space: Moderate right-sided pleural effusion. No pneumothorax. Heart: Unremarkable. No cardiomegaly. Mediastinum: Previously seen opacity within the right hilum has nearly resolved. Bones/joints: Unremarkable. IMPRESSION: 1. Airspace opacities seen throughout the right lung and to a lesser extent the medial left lung. Findings are concerning for an inflammatory or infectious process with superimposed pulmonary vascular congestion not excluded. 2. Small right pleural effusion.
--- NOTE | 2017-06-11 06:03 | PN ---
PROGRESS NOTE DATE OF SERVICE: 06/10/2017 ATTENDING NOTE: Patient seen and examined by me. I discussed with nurse practitioner, Montse. This is a patient felt to be multiloculated abscess, probably from recurrent aspiration. Discussed with Dr. Skaggs today. Per Interventional Radiology to do a drain. On examination, decreased breath sounds on the right side. The patient was aphasic. ON EXAMINATION: Afebrile, tachycardic. Pulse ox 85% on room air. White count 26.6, ASSESSMENT: Multilobar pneumonia with possible abscess, could be aspiration, slow to respond. PLAN: Plan is discussed. Continue with antibiotics. Care was discussed with at the bedside. Overall prognosis guarded. The patient is on IV cefepime and vancomycin. MMODL / IJN: [id number] /
[2017-06-11] MEDS: CEFEPIME 2 GM in SODIUM CHLORIDE 0.9% 50 ML IVPB SCH ×3 (06:12→20:54)
[2017-06-11 06:38] LABS: Basophils % (A) 0 %; CH 30.2; CHCM 32.2; Eosinophils % (A) 0 %; HCT 36.6 % (39.0-53.0); HDW 2.44; HGB 11.9 gm/dL (13.0-17.5); Luc % (Auto) 1; Lymphocytes # (A) 1.5 k/uL (1.0-4.8); Lymphocytes % (A) 6 %; MCH 30.7 pg (25.0-35.0); MCHC 32.5 g/dL (31.0-37.0); MCV 94.2 fL (80.0-100.0); Mean Platelet Volume 7.5; Monocytes # (A) 0.7 k/uL (0-1.0); Monocytes % (A) 3 %; Neutrophils # (A) 23.3 k/uL (1.3-7.7); Neutrophils % (A) 91 %; RBC 3.89 m/uL (4.30-5.90); WBC (Perox) 27.41
[2017-06-11 06:48] LABS: WBC 25.6 k/uL (3.8-10.6)
[2017-06-11 07:12] LABS: Anion Gap 10 mmol/L; Blood Urea Nitrogen 18 mg/dL (9-20); Calcium 9.3 mg/dL (8.4-10.2); Carbon Dioxide 26 mmol/L (22-30); Chloride 100 mmol/L (98-107); Glucose 94 mg/dL (74-99); Non-African American GFR(MDRD) >60 (>60 ml/min/1.73 sqM); Potassium 3.9 mmol/L (3.5-5.1); Sodium 136 mmol/L (137-145)
[2017-06-11] MEDS: BUDESONIDE 1 MG/2 ML NEBU INHALATION SCH ×2 (07:16→19:29)
[2017-06-11] MEDS: IPRATROPIUM-ALBUTEROL 3 ML NEB INHALATION SCH ×4 (07:16→19:29)
[2017-06-11] MEDS: FORMOTEROL FUMARATE 20 MCG/2 ML NEBU INHALATION SCH ×2 (07:16→19:29)
--- NOTE | 2017-06-11 07:48 | P.PN ---
Subjective Progress Note Date: 06/11/17 Principal diagnosis: Right lower lobe lung abscess, pneumonia, abnormal CT of the chest. Recent fall from standing. History of CVA with residual deficit, right hemiplegia, aphasia, hypertension, hyperlipidemia, COPD, benign prostatic hyperplasia. The patient's currently sitting up in bed in no acute distress. Denies pain. Nods head yes when asked if he is aware that he will have a pigtail catheter placed today by interventional radiology. Objective - Vital Signs Vital signs: Vital Signs Temp 98.5 F 06/11/17 03:47 Pulse 100 06/11/17 07:28 Resp 22 06/11/17 03:47 BP 124/70 06/11/17 03:47 Pulse Ox 94 L 06/11/17 03:47 Intake & Output 06/10/17 06/11/17 06/11/17 18:59 06:59 18:59 Intake Total 450 225 Output Total 4750 Balance 450 -4525 Weight 67 kg Intake: Intake, IV Titration 250 225 Amount Cefepime 2 gm In Sodium 100 Chloride 0.9% 50 ml @ 100 mls/hr IVPB Q8H [facility] Rx#: [id number] Vancomycin 1,250 mg In 250 125 Sodium Chloride 0.9% 250 ml @ 125 mls/hr IVPB Q12H [facility] Rx#:[id number] Oral 200 Output: Urine 3600 Straight 1150 Post Void Residual 1150 Other: Voiding Method Diaper Diaper Incontinent # Voids 1 1 # Bowel Movements 2 - Constitutional General appearance: Present: cooperative, no acute distress - Respiratory Details: Lungs sounds diminished bilaterally. Respirations even, nonlabored. Currently on 4 L nasal cannula with oxygen saturation 94%. Chest x-ray reviewed, right- sided pleural effusion present. - Cardiovascular Details: S1, S2 present. Regular rate and rhythm, normal sinus rhythm on telemetry. Palpable peripheral pulses bilaterally. No edema present. Antiembolism stockings, SCDs present. - Gastrointestinal Gastrointestinal Comment(s): Abdomen soft, nontender, nondistended. Active bowel sounds 4 quadrants. Tolerating diet. - Genitourinary Genitourinary Comment(s): Hemphill catheter placed this morning for urinary retention. Currently draining clear, yellow urine. - Musculoskeletal Musculoskeletal: Present: right sided weakness - Psychiatric Psychiatric: Present: A&O x's 3, appropriate affect - Allied health notes Allied health notes reviewed: nursing - Labs CBC & Chem 7: 06/11/17 05:23 06/11/17 05:23 Labs: Abnormal Lab Results - Last 24 Hours (Table) 06/10/17 06/11/17 06/11/17 Range/Units 23:13 00:51 05:23 WBC 25.6 H* (3.8-10.6) k/uL RBC 3.89 L (4.30-5.90) m/uL Hgb 11.9 L (13.0-17.5) gm/dL Hct 36.6 L (39.0-53.0) % Plt Count 609 H (150-450) k/uL Neutrophils # 23.3 H (1.3-7.7) k/uL Sodium (137-145) mmol/L POC Glucose (mg/dL) 113 H (75-99) mg/dL Troponin I 0.193 H* (0.000-0.034) ng/mL 06/11/17 06/11/17 Range/Units 05:23 05:23 WBC (3.8-10.6) k/uL RBC (4.30-5.90) m/uL Hgb (13.0-17.5) gm/dL Hct (39.0-53.0) % Plt Count (150-450) k/uL Neutrophils # (1.3-7.7) k/uL Sodium 136 L (137-145) mmol/L POC Glucose (mg/dL) (75-99) mg/dL Troponin I 0.807 H* (0.000-0.034) ng/mL Microbiology - Last 24 Hours (Table) 06/08/17 09:50 Blood Culture Gram Stain - Final Blood Blood Culture - Final Staphylococcus epidermidis - Imaging and Cardiology Chest x-ray: report reviewed, image reviewed Assessment and Plan (1) Abnormal CT scan, chest Current Visit: Yes Status: Acute Code(s): R93.8 - ABNORMAL FINDINGS ON DIAGNOSTIC IMAGING OF BODY STRUCTURES SNOMED Code(s): 658185502 (2) Abnormal finding on chest xray Current Visit: Yes Status: Acute Code(s): R93.8 - ABNORMAL FINDINGS ON DIAGNOSTIC IMAGING OF BODY STRUCTURES SNOMED Code(s): 556014484 (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 Current Visit: Yes Status: Chronic Code(s): I69.920 - APHASIA FOLLOWING UNSPECIFIED CEREBROVASCULAR DISEASE SNOMED Code(s): 448078564 (4) BPH (benign prostatic hyperplasia) Current Visit: Yes Status: Acute Code(s): N40.0 - BENIGN PROSTATIC HYPERPLASIA WITHOUT LOWER URINRY TRACT SYMP SNOMED Code(s): 442745082 (5) COPD (chronic obstructive pulmonary disease) Current Visit: Yes Status: Chronic Code(s): J44.9 - CHRONIC OBSTRUCTIVE PULMONARY DISEASE, UNSPECIFIED SNOMED Code(s): 29427559 (6) Fall from standing Current Visit: Yes Status: Acute Code(s): W19.XXXA - UNSPECIFIED FALL, INITIAL ENCOUNTER SNOMED Code(s): 3890661 (7) History of cerebrovascular accident (CVA) with residual deficit Current Visit: Yes Status: Chronic Code(s): I69.30 - UNSPECIFIED SEQUELAE OF CEREBRAL INFARCTION SNOMED Code(s): 125669190 (8) Hyperlipidemia Current Visit: Yes Status: Chronic Code(s): E78.5 - HYPERLIPIDEMIA, UNSPECIFIED SNOMED Code(s): 91304023 (9) Hypertension Current Visit: Yes Status: Chronic Code(s): I10 - ESSENTIAL (PRIMARY) HYPERTENSION SNOMED Code(s): 13925775 (10) Leukocytosis Current Visit: Yes Status: Acute Code(s): D72.829 - ELEVATED WHITE BLOOD CELL COUNT, UNSPECIFIED SNOMED Code(s): 220455571 Plan: 1. Pigtail catheter to be placed today by interventional radiology. Will monitor drainage once catheter placed. 2. Continue cefepime, vancomycin per infectious disease recommendations. 3. DVT prophylaxis with Lovenox. 4. Speech therapy consulted for concerns regarding possible aspiration. 5. Medical management per primary, pulmonology services. 6. More recommendations to follow as patient progresses.
[2017-06-11] MEDS ORDERED: ENOXAPARIN 40 MG/0.4 ML SYRINGE SQ SCH (09:00)
[2017-06-11] MEDS ORDERED: VANCOMYCIN TROUGH DUE 1 EACH MISC MISCELLANE ONE (11:00)
[2017-06-11] MEDS: ASPIRIN 81 MG PO SCH (11:20)
[2017-06-11] MEDS: LOSARTAN 25 MG TAB PO SCH (11:21)
[2017-06-11] MEDS: MELOXICAM 7.5 MG TAB PO SCH (11:21)
[2017-06-11] MEDS: NITROGLYCERIN EXTENDED RELEASE 6.5 MG CAPSULE.ER PO SCH ×2 (11:22→20:52)
[2017-06-11] MEDS: SODIUM CHLORIDE TAB 1 GM TAB PO SCH ×3 (11:22→20:52)
[2017-06-11] MEDS: MULTIVITAMINS, THERA 1 EACH TAB PO SCH (13:20)
[2017-06-11] MEDS ORDERED: HEPARIN SODIUM,PORCINE 5,000 UNIT/ML 1 ML VIAL IV PRN (15:06)
[2017-06-11] MEDS ORDERED: HEPARIN SODIUM,PORCINE 5,000 UNIT/ML 1 ML VIAL IV ONE (15:06)
--- NOTE | 2017-06-11 15:22 | P.CRDCN ---
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 Presented to the emergency department with overall not feeling well, frequent falls and some respiratory distress. He was found to have right lower lobe lung abscess, pneumonia. He underwent modified barium swallow today that showed positive for aspiration. Cardiology was asked to the patient in consultation after the patient had some tachycardia through the night. Initially patient was sinus tachycardia however this morning was found to be in atrial fibrillation with rapid ventricular response. This is paroxysmal. He is currently in sinus rhythm. Upon examination, patient denies complaints of chest discomfort, palpitations, dizziness or syncope. 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 History of Any Multi-Drug Resistant Organisms: None Reported Past Surgical History: Back Surgery Additional Past Surgical History / Comment(s): 1991 lumbar laminectomy with fusion, 1996 AAA repair Past Anesthesia/Blood Transfusion Reactions: No Reported Reaction Past Psychological History: No Psychological Hx Reported Smoking Status: Former smoker Past Alcohol Use History: None Reported Past Drug Use History: None Reported - Past Family History Father Family Medical History: Myocardial Infarction (SC) Additional Family Medical History / Comment(s): Father of a SC in his 80's. Mother Family Medical History: Hypertension Additional Family Medical History / Comment(s): Mother in her 80's Medications and Allergies Home Medications Medication Instructions Recorded Confirmed Type Aspirin EC [Ecotrin Low Dose] 81 mg PO DAILY 06/08/17 06/08/17 History Atorvastatin [Lipitor] 20 mg PO HS 06/08/17 06/08/17 History Celecoxib [CeleBREX] 200 mg PO DAILY 06/08/17 06/08/17 History Cranberry Fruit Extract [Cranberry] 200 mg PO DAILY 06/08/17 06/08/17 History Ipratropium-Albuterol Nebulize 3 ml INHALATION RT-TID 06/08/17 06/08/17 History [Duoneb 0.5 mg-3 mg/3 ml Soln] Losartan [Cozaar] 25 mg PO DAILY 06/08/17 06/08/17 History Multivit-Min/FA/Lycopen/Lutein 1 tab PO DAILY 06/08/17 06/08/17 History [Centrum Silver Tablet] Nitroglycerin Extended Release 6.5 mg PO Q12H 06/08/17 06/08/17 History [Nitro-Bid] Vitamin D3 With Aloe 1 tab PO DAILY 06/08/17 06/08/17 History Vits A,C,E/Lutein/Minerals 1 tab PO DAILY 06/08/17 06/08/17 History [Ocuvite with Lutein Tablet] Allergies Allergy/AdvReac Type Severity Reaction Status Date / Time No Known Allergies Allergy Verified 06/08/17 09:47 Physical Exam Vitals: Vital Signs Temp Pulse Pulse Resp BP Pulse Ox 06/11/17 12:00 135 H 22 06/11/17 11:22 116 H 06/11/17 11:12 112 H 06/11/17 09:50 135 H 22 97/41 94 L 06/11/17 08:00 97.4 F L 95 22 129/71 94 L 06/11/17 07:38 108 H 06/11/17 07:28 100 06/11/17 07:27 100 06/11/17 07:19 96 06/11/17 03:47 98.5 F 96 22 124/70 94 L 06/11/17 01:31 98.3 F 130 H 34 H 177/91 06/10/17 23:00 98.4 F 120 H 32 H 149/75 91 L 06/10/17 20:34 115 H 06/10/17 20:20 115 H 06/10/17 20:19 120 H 06/10/17 20:08 120 H 06/10/17 17:40 92 L 06/10/17 17:35 96.8 F L 110 H 16 150/70 85 L 06/10/17 16:32 100 06/10/17 16:20 96 06/10/17 15:45 98.9 F 105 H 18 143/65 97 Intake and Output 06/11/17 06/11/17 06/11/17 06:59 14:59 22:59 Intake Total 225 50 Output Total 4750 1300 Balance -4567 -1250 Intake: Intake, IV Titration 225 50 Amount Cefepime 2 gm In Sodium 100 Chloride 0.9% 50 ml @ 100 mls/hr IVPB Q8H [facility] Rx#: [id number] Vancomycin 1,250 mg In 125 50 Sodium Chloride 0.9% 250 ml @ 125 mls/hr IVPB Q12H [facility] Rx#:[id number] Oral 0 Output: Urine 3600 1300 Straight 1150 Post Void Residual 1150 Other: Voiding Method Diaper Diaper # Voids 1 # Bowel Movements 2 2 Weight 67 kg 67 kg Patient Weight 06/12/17 06:59 Weight 67 kg PHYSICAL EXAMINATION: HEENT: Head is atraumatic, normocephalic. Pupils equal, round. Neck is supple. There is no elevated jugular venous pressure. HEART EXAMINATION: Heart sounds regular, S1 and S2 normal. No murmur or gallop heard. CHEST EXAMINATION: Lungs reveal diminished air entry. No chest wall tenderness is noted on palpation or with deep breathing. ABDOMEN: Soft, nontender. Bowel sounds are heard. No organomegaly noted. EXTREMITIES: 2+ peripheral pulses with no evidence of peripheral edema and no calf tenderness noted. NEUROLOGIC patient is awake, alert and oriented x3. Right sided weakness. . Results 06/11/17 05:23 06/11/17 05:23 Cardiac Enzymes 06/10/17 06/11/17 Range/Units 23:13 05:23 Troponin I 0.193 H* 0.807 H* (0.000-0.034) ng/mL CBC 06/11/17 Range/Units 05:23 WBC 25.6 H* (3.8-10.6) k/uL RBC 3.89 L (4.30-5.90) m/uL Hgb 11.9 L (13.0-17.5) gm/dL Hct 36.6 L (39.0-53.0) % Plt Count 609 H (150-450) k/uL Comprehensive Metabolic Panel 06/11/17 Range/Units 05:23 Sodium 136 L (137-145) mmol/L Potassium 3.9 (3.5-5.1) mmol/L Chloride 100 (98-107) mmol/L Carbon Dioxide 26 (22-30) mmol/L BUN 18 (9-20) mg/dL Creatinine 0.66 (0.66-1.25) mg/dL Glucose 94 (74-99) mg/dL Calcium 9.3 (8.4-10.2) mg/dL Current Medications Generic Name Dose Route Start Last Admin Trade Name Freq PRN Reason Stop Dose Admin Albuterol/Ipratropium 3 ml 06/08/17 16:00 06/11/17 11:11 Duoneb 0.5 Mg-3 Mg/3 Ml Soln INHALATION 3 ml RT-QID [facility] Administration Aspirin 81 mg 06/09/17 09:00 06/11/17 11:20 Aspirin PO Not Given DAILY [facility] Atorvastatin Calcium 20 mg 06/08/17 21:00 06/10/17 20:56 Lipitor PO 20 mg HS [facility] Administration Budesonide 1 mg 06/10/17 20:00 06/11/17 07:16 Pulmicort INHALATION 1 mg RT-BID [facility] Administration Formoterol Fumarate 20 mcg 06/10/17 20:00 06/11/17 07:16 Perforomist INHALATION 20 mcg RT-BID [facility] Administration Heparin Sodium (Porcine) 0 unit 06/11/17 15:06 Heparin IV PER PROTOCOL PRN Low PTT Protocol Cefepime HCl 2 gm/ Sodium 50 mls @ 100 mls/hr 06/08/17 22:00 06/11/17 06:12 Chloride IVPB 100 mls/hr Q8H [facility] Administration Vancomycin HCl 1,250 mg/ 250 mls @ 125 mls/hr 06/10/17 00:00 06/11/17 13:20 Sodium Chloride IVPB 125 mls/hr Q12H [facility] Administration Heparin Sodium (Porcine) 25, 500 mls @ 16.08 mls/hr 06/11/17 15:15 000 unit/ Sodium Chloride IV .Q24H [facility] Protocol 12 UNITS/KG/HR Losartan Potassium 25 mg 06/09/17 09:00 06/11/17 11:21 Cozaar PO Not Given DAILY [facility] Meloxicam 7.5 mg 06/09/17 09:00 06/11/17 11:21 Mobic PO Not Given DAILY [facility] Multivitamins 1 each 06/09/17 12:00 06/11/17 13:20 Theragran PO Not Given 1200 [facility] Nitroglycerin 6.5 mg 06/08/17 21:00 06/11/17 11:22 Nitro-Bid PO Not Given Q12HR [facility] Sodium Chloride 1 gm 06/09/17 16:00 06/11/17 11:22 Sodium Chloride Tab PO Not Given TID [facility] Tamsulosin HCl 0.4 mg 06/08/17 19:45 06/10/17 17:10 Flomax PO 0.4 mg PC-SUPPER [facility] Administration Verapamil HCl 40 mg 06/11/17 16:00 Isoptin PO TID [facility] Intake and Output 06/11/17 06/11/17 06/11/17 06:59 14:59 22:59 Intake Total 225 50 Output Total 4750 1300 Balance -4525 -1250 Intake: Intake, IV Titration 225 50 Amount Cefepime 2 gm In Sodium 100 Chloride 0.9% 50 ml @ 100 mls/hr IVPB Q8H [facility] Rx#: [id number] Vancomycin 1,250 mg In 125 50 Sodium Chloride 0.9% 250 ml @ 125 mls/hr IVPB Q12H [facility] Rx#:[id number] Oral 0 Output: Urine 3600 1300 Straight 1150 Post Void Residual 1150 Other: Voiding Method Diaper Diaper # Voids 1 # Bowel Movements 2 2 Weight 67 kg 67 kg Patient Weight 06/12/17 06:59 Weight 67 kg 06/11/17 05:23 06/11/17 05:23 Assessment and Plan Assessment: #1 right lower lobe lung abscess and pneumonia secondary to current aspiration #2 hypertension 3 paroxysmal atrial fibrillation with rapid ventricular response #4 hyperlipidemia #5 history of CVA Plan: From cardiology's perspective, we'll obtain a 2-D echo with Doppler. Start the patient on verapamil 40 mg by mouth 3 times a day. We'll start the patient on heparin for now and consider oral anticoagulation later due to likelihood of possible invasive procedures needed. We'll continue to follow the patient for further recommendations accordingly. 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 Patient was seen and examined.
[2017-06-11 15:50] LABS: Basophils # (A) 0.1 k/uL (0-0.2); Basophils % (A) 0 %; CH 30.8; CHCM 33.6; Eosinophils # (A) 0.1 k/uL (0-0.7); Eosinophils % (A) 1 %; HDW 2.74; Luc # (Auto) 0.25; Luc % (Auto) 1; Lymphocytes # (A) 2.3 k/uL (1.0-4.8); Lymphocytes % (A) 10 %; MCH 29.9 pg (25.0-35.0); MCHC 32.5 g/dL (31.0-37.0); Mean Platelet Volume 6.8; Monocytes # (A) 0.6 k/uL (0-1.0); Monocytes % (A) 3 %; Neutrophils # (A) 18.6 k/uL (1.3-7.7); Neutrophils % (A) 85 %; RBC 3.69 m/uL (4.30-5.90); RDW 13.3 % (11.5-15.5); WBC (Perox) 21.59
[2017-06-11 16:00] LABS: INR 1.3 (<1.2); Prothrombin Time 12.4 sec (9.0-12.0)
--- NOTE | 2017-06-11 16:03 | P.PN ---
Subjective Progress Note Date: 06/11/17 On 06/11/2017 I'm seeing this patient in follow-up. This patient failed the swallow evaluation. I talked to the swallow specialist and the patient is having significant amount of aspiration. The patient also has chronic aspiration he has developed a right lower lobe pneumonia and extensive abscess formation in the superior segment of the right lower lobe. I reviewed the CAT scan of the chest and there is multiple abscesses. Discussed the case with Dr. Natanael Santoyo from interventional radiology. We'll may consider doing a percutaneous drainage of one of these pocketed later stage for diagnostic purposes. The patient meanwhile is covered with broad-spectrum antibiotics and the patient is currently on a combination of cefepime, and vancomycin. The white cell count is elevated at 25.6. There is mild troponin leak noted with troponin levels of 0.1 0.8 respectively 2. The patient is still tachycardic with a heart rate of 120 and a blood pressure is 156/67. The patient is nothing by mouth for now. Consultation is being given for a PEG tube placement. The patient has suffered a previous CVA. The patient has expressive aphasia. Objective - Vital Signs Vital signs: Vital Signs Temp 97.4 F L 06/11/17 08:00 Pulse 120 H 06/11/17 15:20 Resp 22 06/11/17 12:00 BP 97/41 06/11/17 09:50 Pulse Ox 94 L 06/11/17 09:50 Intake & Output 06/10/17 06/11/17 06/11/17 18:59 06:59 18:59 Intake Total 450 225 50 Output Total 4750 1300 Balance 450 4525 -1250 Weight 67 kg 67 kg Intake: Intake, IV Titration 250 225 50 Amount Cefepime 2 gm In Sodium 100 Chloride 0.9% 50 ml @ 100 mls/hr IVPB Q8H [facility] Rx#: [id number] Vancomycin 1,250 mg In 250 125 50 Sodium Chloride 0.9% 250 ml @ 125 mls/hr IVPB Q12H [facility] Rx#:[id number] Oral 200 0 Output: Urine 3600 1300 Straight 1150 Post Void Residual 1150 Other: Voiding Method Diaper Diaper Diaper Incontinent # Voids 1 1 1 # Bowel Movements 2 2 - Exam No acute distress, patient cannot communicate verbally as the patient has expressive aphasia. He seems to be alert and fully comprehend any discussion or conversation HENT examination is grossly unremarkable. Mucous membranes are moist. No oral lesions. Neck supple. Full range of motion. No adenopathy thyromegaly or neck vein distention. Cardiovascular examination reveals regular rhythm rate. S1-S2 normal. No S3 or S4. No discernible murmur noted. Lungs reveal diminished breath sounds. Diminished breath sounds especially in the right lung base. Few crackles in the lung basilar areas. No wheezing. Abdomen soft bowel sounds are heard. No masses or tenderness. Extremities reveal weakness/paralysis on the right side. No cyanosis clubbing or significant edema. Skin is without rash or lesion. Neurologic examination is patient has expressive aphasia. A previous CVA. Weak swallow. Increased risk of aspiration. - Labs CBC & Chem 7: 06/11/17 05:23 06/11/17 05:23 Labs: Abnormal Lab Results - Last 24 Hours (Table) 06/10/17 06/11/17 06/11/17 Range/Units 23:13 00:51 05:23 WBC 25.6 H* (3.8-10.6) k/uL RBC 3.89 L (4.30-5.90) m/uL Hgb 11.9 L (13.0-17.5) gm/dL Hct 36.6 L (39.0-53.0) % Plt Count 609 H (150-450) k/uL Neutrophils # 23.3 H (1.3-7.7) k/uL Sodium (137-145) mmol/L POC Glucose (mg/dL) 113 H (75-99) mg/dL Troponin I 0.193 H* (0.000-0.034) ng/mL 06/11/17 06/11/17 Range/Units 05:23 05:23 WBC (3.8-10.6) k/uL RBC (4.30-5.90) m/uL Hgb (13.0-17.5) gm/dL Hct (39.0-53.0) % Plt Count (150-450) k/uL Neutrophils # (1.3-7.7) k/uL Sodium 136 L (137-145) mmol/L POC Glucose (mg/dL) (75-99) mg/dL Troponin I 0.807 H* (0.000-0.034) ng/mL Microbiology - Last 24 Hours (Table) 06/08/17 09:50 Blood Culture Gram Stain - Final Blood Blood Culture - Final Staphylococcus epidermidis Assessment and Plan Plan: Assessment 1 right lung abscess involving the superior segment of the right lower lobe and there is also some consolidation of the right lung base. This is likely secondary to aspiration 2 aspiration, a complication of previous CVA 3 CVA with expressive aphasia due to late effects of CVA 4 COPD 5 BPH 6 hyperlipidemia 7 hypertension Plan Continue current antibiotic coverage. Aspiration precautions. Keep the patient nothing by mouth. Consider extubation for enteral feeding and nutritional support. The patient will likely need PEG tube feeding knowing that he failed a swallow evaluation today and he has developed complications of chronic aspiration which involves permission of a lung abscess. Case discussed with interventional radiology. We'll repeat the CAT scan of the chest and seems there is any sizable abscesses that can be drained successfully at least for diagnostic purposes and obtain some microbiology regarding antibiotic management. ID is on the case. Continue same antibiotic coverage. We'll continue to follow.
--- NOTE | 2017-06-11 16:23 | P.PN ---
Progress Note - Text Progress Note Date: 06/11/17 DATE OF SERVICE: 06/11/2017 PRESENTING COMPLAINT: Fall, shortness of breath HISTORY OF PRESENT ILLNESS: 86-year-old male with right-sided hemiplegia presents after a fall sustained at home trying to use the urinal and increasing shortness of breath. INTERVAL HISTORY: 06/11/2017: Patient seen in follow-up, no family at the bedside, appears comfortable. Aware of his surroundings recognizes care staff does seem a bit confused today has taken his gown off. Patient was transferred to general medicine floor yesterday and had to be returned to 6 E. due to complaints of chest pain and tachycardia. Patient also developed urinary retention overnight for which Hemphill catheter was placed. Patient seen by speech, Patient made nothing by mouth due to failing the swallow evaluation.recommends modified barium swallow evaluation. Due to patient's chronic aspiration and development of lung abscesses, CT of the chest to be completed to determine if any can be drained per pulmonology and interventional radiology. 06/10/2017: Patient seen in follow-up, no family at the bedside, appears comfortable. Appears aware of his surroundings recognizes care staff and myself. Answers questions by nodding his head and trying to speak some. He tolerates his diet, cough noted no sputum production, remains on oxygen. Pulmonology suggests placement of pigtail catheter the right lung for drainage. 06/09/2017: Patient seen in follow-up, remains at the bedside, appears comfortable, appears aware of his surroundings, recognizes care staff, tolerating his diet, some concerns expressed by the that patient has a tendency to put too much in his mouth and there may be possibility of aspiration. Cough is improved, producing less sputum. Remains on oxygen. REVIEW OF SYSTEMS: Done for constitutional ,cardiovascular, GI, pulmonary with relevant findings as above. CURRENT MEDICATIONS DuoNeb, aspirin, Lipitor, cefepime 2 g IV piggyback, Perforomist 20 g twice a day, Cozaar 25 mg by mouth daily, Mobic 7.5 mg by mouth daily, Flomax 0.4 mg by mouth at supper. Vancomycin 1250 mg IV piggyback, verapamil 40 mg by mouth 3 times a day PHYSICAL EXAM VITAL SIGNS: Temperature 97.4, pulse 95, respiratory rate 22, blood pressure 129/71, oxygen saturation 94% on 4 L. GENERAL APPEARANCE: Lying in bed, not in distress. EYES: Pupils equal. Conjunctiva normal. NECK: JVD not raised. Mass not palpable. RESPIRATORY: Respiratory effort normal. Lungs diminished expiratory wheezing to auscultation. CARDIOVASCULAR: First and second sounds normal. No edema. ABDOMEN: Soft. Liver and spleen not palpable. No tenderness. No mass palpable. PSYCHIATRY: Able answer some simple straightforward questions by not and answers by nodding and trying to speak. Mood and affect normal. NEUROLOGICAL: Right-sided hemiplegia from previous stroke, right lower extremity atrophy, right arm contracted, has aphasia INVESTIGATIONS: White blood cell count 22.0, hemoglobin 11.0, INR 1.3, troponin 0.193, 0.807. ASSESSMENT: - right-sided severe multilobar pneumonia could be aspiration slow to respond -Chronic obstructive pulmonary disease. 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 -Hyperlipidemia. -Primary osteoarthritis. -Essential hypertension. -Benign prostatic hypertrophy. -moderate protein calorie malnutrition with BMI of 18.6, decreased albumin and reduced muscle mass. -Hyponatremia, suspect hypoosmolar, improving PLAN: Barium swallow performed this afternoon, patient failed, speech recommending placement of a PEG tube for nutrition due to aspiration. Patient noted to have several fluid collections in the right lung, needs a CT of the chest to determine which if any can be tapped by interventional radiology. Plan of care discussed at the bedside. We will follow closely. ATTENDANT LODGING FACILITIES statement: Patient was seen and examined by nurse practitioner Vangie Willard and all elements of the case discussed with attending Dr. Torres
[2017-06-11] MEDS: HEPARIN SODIUM,PORCINE 25,000 UNIT in SODIUM CHLORIDE 0.9% 500 ML IV SCH (17:34)
[2017-06-11] MEDS: VERAPAMIL 40 MG TAB PO SCH ×2 (18:04→20:52)
[2017-06-11] MEDS: TAMSULOSIN 0.4 MG CAP.ER.24H PO SCH (19:30)
--- NOTE | 2017-06-11 20:48 | PN ---
PROGRESS NOTE DATE OF SERVICE: 06/11/2017 ATTENDING NOTE: The patient was seen and examined by me. I discussed with nurse practitioner, Montse. The patient is lying in bed, a bit tired appearing. PHYSICAL EXAMINATION: On examination, decreased breath sounds on the right side. Awake, comfortable. Temperature 97.4, pulse 120, blood pressure 120/71, pulse 94% on 4 L. LABORATORY DATA: White count 25.6, potassium 3.9. ASSESSMENT: Multilocular abscess on the right lung from aspiration. PLAN: The patient has failed swallow evaluation. Discussed with Dr. Gaffney at length. Since there are multiple areas of loculation, maybe a CT-guided biopsy would be more helpful. May have to wait for some time to see how he does. The patient is definitely not a good candidate for any further feeding. He will have to be made n.p.o. Will have to talk to the about a feeding tube. Also spoke to Dr. Cavazos from Radiology. Total time spent today was about 35 to 40 minutes with over 20 to 25 minutes of discussion. MMODL / IJN: [id number] /
[2017-06-11] MEDS: ATORVASTATIN 20 MG TAB PO SCH (20:52)
--- NOTE | 2017-06-11 22:06 | P.PN ---
Subjective Progress Note Date: 06/11/17 Principal diagnosis: Lung abscess 86-year-old male presents to hospital with concerns to pneumonia. He has a known history of stroke and does have some difficulties with swallowing. He also has significant periodontal disease. He has been seen by pulmonary medicine as well as cardiothoracic surgery because of the onset of a significant lung abscess. It appears there has been a request for percutaneous drainage from interventional radiology. At this time this 86-year-old gentleman is able to communicate with the forward and with response to yes and no questions. He relates that he is quite comfortable and does not have any significant discomfort at this time. His shortness of breath is improved. Fevers have improved ,failed his swallow study Objective - Vital Signs Vital signs: Vital Signs Temp 97.4 F L 06/11/17 08:00 Pulse 104 H 06/11/17 19:57 Resp 22 06/11/17 12:00 BP 137/66 06/11/17 18:01 Pulse Ox 99 06/11/17 19:29 Intake & Output 06/11/17 06/11/17 06/12/17 06:59 18:59 06:59 Intake Total 225 250 Output Total 4750 2200 Balance -5668 -6004 Weight 67 kg 67 kg Intake: Intake, IV Titration 225 50 Amount Cefepime 2 gm In Sodium 100 Chloride 0.9% 50 ml @ 100 mls/hr IVPB Q8H [facility] Rx#: [id number] Vancomycin 1,250 mg In 125 50 Sodium Chloride 0.9% 250 ml @ 125 mls/hr IVPB Q12H [facility] Rx#:[id number] Oral 200 Output: Urine 3600 2200 Straight 1150 Post Void Residual 1150 Other: Voiding Method Diaper Diaper # Voids 1 1 # Bowel Movements 2 2 - Exam 86-year-old male who is comfortable. He has the obvious right sided weakness. He however does have the ability to utilize his mouth and he does not drool HEENT: Anicteric conjunctiva are pink and moist nasal mucosa grossly intact without significant lesions, there is no thrush. Oral mucosa somewhat dry Neck: The neck is supple without significant lymphadenopathy or thyromegaly. Lungs: There are symmetrical air entry. On the right posterior chest is evidence of bronchial sounds as well as dullness some expiratory wheezes are heard Heart: Regular rate and rhythm with an audible S1-S2, no S3 no S4. There is no significant murmur click or rub, PMI was nondisplaced. Abdomen: Positive bowel sounds soft and nontender without palpable masses or organomegaly. There was no guarding or rebound. Extremities: The upper extremities have excellent pulses they are symmetric, no significant petechiae or telangiectasia. No splinter hemorrhages were noted. The lower extremities are free from significant edema. The peripheral pulses were 2+ and symmetric. Neuro: Patient is pleasant and cooperative. He has started to person and place. He has the dense right hemiparesis with difficulty with speech. However able to utilize a picture board and answer yes or no questions - Labs CBC & Chem 7: 06/11/17 15:40 06/11/17 05:23 Labs: Abnormal Lab Results - Last 24 Hours (Table) 06/10/17 06/11/17 06/11/17 Range/Units 23:13 00:51 05:23 WBC 25.6 H* (3.8-10.6) k/uL RBC 3.89 L (4.30-5.90) m/uL Hgb 11.9 L (13.0-17.5) gm/dL Hct 36.6 L (39.0-53.0) % Plt Count 609 H (150-450) k/uL Neutrophils # 23.3 H (1.3-7.7) k/uL PT (9.0-12.0) sec INR (<1.2) APTT (22.0-30.0) sec Sodium (137-145) mmol/L POC Glucose (mg/dL) 113 H (75-99) mg/dL Troponin I 0.193 H* (0.000-0.034) ng/mL 06/11/17 06/11/17 06/11/17 Range/Units 05:23 05:23 15:40 WBC 22.0 H (3.8-10.6) k/uL RBC 3.69 L (4.30-5.90) m/uL Hgb 11.0 L (13.0-17.5) gm/dL Hct 34.0 L (39.0-53.0) % Plt Count 617 H (150-450) k/uL Neutrophils # 18.6 H (1.3-7.7) k/uL PT (9.0-12.0) sec INR (<1.2) APTT (22.0-30.0) sec Sodium 136 L (137-145) mmol/L POC Glucose (mg/dL) (75-99) mg/dL Troponin I 0.807 H* (0.000-0.034) ng/mL 06/11/17 06/11/17 Range/Units 15:40 20:41 WBC (3.8-10.6) k/uL RBC (4.30-5.90) m/uL Hgb (13.0-17.5) gm/dL Hct (39.0-53.0) % Plt Count (150-450) k/uL Neutrophils # (1.3-7.7) k/uL PT 12.4 H (9.0-12.0) sec INR 1.3 H (<1.2) APTT 36.8 H (22.0-30.0) sec Sodium (137-145) mmol/L POC Glucose (mg/dL) (75-99) mg/dL Troponin I (0.000-0.034) ng/mL Microbiology - Last 24 Hours (Table) 06/08/17 09:50 Blood Culture Gram Stain - Final Blood Blood Culture - Final Staphylococcus epidermidis Laboratory Results WBC 22.0 k/uL (3.8-10.6) H 06/11/17 15:40 RBC 3.69 m/uL (4.30-5.90) L 06/11/17 15:40 Hgb 11.0 gm/dL (13.0-17.5) L 06/11/17 15:40 Hct 34.0 % (39.0-53.0) L 06/11/17 15:40 MCV 92.0 fL (80.0-100.0) 06/11/17 15:40 MCH 29.9 pg (25.0-35.0) 06/11/17 15:40 MCHC 32.5 g/dL (31.0-37.0) 06/11/17 15:40 RDW 13.3 % (11.5-15.5) 06/11/17 15:40 Plt Count 617 k/uL (150-450) H 06/11/17 15:40 Neutrophils % 85 % 06/11/17 15:40 Lymphocytes % 10 % 06/11/17 15:40 Monocytes % 3 % 06/11/17 15:40 Eosinophils % 1 % 06/11/17 15:40 Basophils % 0 % 06/11/17 15:40 Neutrophils # 18.6 k/uL (1.3-7.7) H 06/11/17 15:40 Lymphocytes # 2.3 k/uL (1.0-4.8) 06/11/17 15:40 Monocytes # 0.6 k/uL (0-1.0) 06/11/17 15:40 Eosinophils # 0.1 k/uL (0-0.7) 06/11/17 15:40 Basophils # 0.1 k/uL (0-0.2) 06/11/17 15:40 Manual Slide Review Performed 06/08/17 09:50 Toxic Granulation Present 06/08/17 09:50 Poikilocytosis (manual Present 06/08/17 09:50 PT 12.4 sec (9.0-12.0) H 06/11/17 15:40 INR 1.3 (<1.2) H 06/11/17 15:40 APTT 36.8 sec (22.0-30.0) H 06/11/17 20:41 Sodium 136 mmol/L (137-145) L 06/11/17 05:23 Potassium 3.9 mmol/L (3.5-5.1) 06/11/17 05:23 Chloride 100 mmol/L (98-107) 06/11/17 05:23 Carbon Dioxide 26 mmol/L (22-30) 06/11/17 05:23 Anion Gap 10 mmol/L 06/11/17 05:23 BUN 18 mg/dL (9-20) 06/11/17 05:23 Creatinine 0.66 mg/dL (0.66-1.25) 06/11/17 05:23 Est GFR (MDRD) Af Amer >60 (>60 ml/min/1.73 sqM) 06/11/17 05:23 Est GFR (MDRD) Non-Af >60 (>60 ml/min/1.73 sqM) 06/11/17 05:23 Glucose 94 mg/dL (74-99) 06/11/17 05:23 POC Glucose (mg/dL) 113 mg/dL (75-99) H 06/11/17 00:51 POC Glu Land [employer] Examiner ID Kiki Mccoy 06/11/17 00:51 Osmolality 270 mosm/kg (280-301) L 06/09/17 05:36 Plasma Lactic Acid Saulo 1.3 mmol/L (0.7-2.0) 06/08/17 09:50 Calcium 9.3 mg/dL (8.4-10.2) 06/11/17 05:23 Magnesium 2.0 mg/dL (1.6-2.3) 06/08/17 09:50 Total Bilirubin 0.6 mg/dL (0.2-1.3) 06/08/17 09:50 AST 31 U/L (17-59) 06/08/17 09:50 ALT 68 U/L (21-72) 06/08/17 09:50 Alkaline Phosphatase 119 U/L (38-126) 06/08/17 09:50 Total Creatine Kinase 75 U/L (55-170) 06/08/17 09:50 CK-MB (CK-2) 1.1 ng/mL (0.0-2.4) 06/08/17 09:50 CK-MB (CK-2) Rel Index 1.5 06/08/17 09:50 Troponin I 0.807 ng/mL (0.000-0.034) H* 06/11/17 05:23 NT-Pro-B Natriuret Pep 1690 pg/mL 06/08/17 09:50 Total Protein 6.0 g/dL (6.3-8.2) L 06/08/17 09:50 Albumin 2.3 g/dL (3.5-5.0) L 06/08/17 09:50 Urine Color Yellow 06/08/17 13:00 Urine Appearance Clear (Clear) 06/08/17 13:00 Urine pH 6.0 (5.0-8.0) 06/08/17 13:00 Ur Specific [place] 1.013 (1.001-1.035) 06/08/17 13:00 Urine Protein Trace (Negative) H 06/08/17 13:00 Urine Glucose (UA) Negative (Negative) 06/08/17 13:00 Urine Ketones Negative (Negative) 06/08/17 13:00 Urine Blood Negative (Negative) 06/08/17 13:00 Urine Nitrite Negative (Negative) 06/08/17 13:00 Urine Bilirubin Negative (Negative) 06/08/17 13:00 Urine Urobilinogen 2.0 mg/dL (<2.0) 06/08/17 13:00 Ur Leukocyte Esterase Negative (Negative) 06/08/17 13:00 Vancomycin Trough 14.3 ug/mL 06/11/17 10:26 Microbiology 06/08/17 09:50 Blood Blood Culture Gram Stain - Final 06/08/17 09:50 Blood Blood Culture - Final Staphylococcus epidermidis 06/08/17 09:50 Blood Blood Culture - Final Assessment and Plan (1) Abscess of lung with pneumonia Narrative/Plan: 86-year-old male presents to hospital with alteration in his status in about evidence of a significant right lower lobe pulmonary abscess. 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 Fortunately patient is showing some improvement although he does have an extensive leukocytosis. Interventional radiology has been consulted and a percutaneous pigtail catheter drainage of the lung abscesses been requested. Culture should be obtained at the time of the procedure. As well as pathology, although complete drainage of the abscess is not likely due to its loculated nature, Samples would still give us culture and cytology to evaluate for malignancies. Other cultures are process. Leukocytosis appears to related to his significant abscess and he has not been receiving large amounts of steroids at this time. Blood cultures are negative. Further evaluation to his swallowing he failed his swallow evaluation. Does have evidence of protein calorie malnutrition. The patient is an extensive decline of his status. If care is to continue appears needed alternative form of feeding. Current Visit: Yes Status: Acute Code(s): J85.1 - ABSCESS OF LUNG WITH PNEUMONIA SNOMED Code(s): 953297332 (2) Leukocytosis Current Visit: Yes Status: Acute Code(s): D72.829 - ELEVATED WHITE BLOOD CELL COUNT, UNSPECIFIED SNOMED Code(s): 811298323 (3) History of cerebrovascular accident (CVA) with residual deficit Current Visit: Yes Status: Chronic Code(s): I69.30 - UNSPECIFIED SEQUELAE OF CEREBRAL INFARCTION SNOMED Code(s): 458050609
[2017-06-12 04:27] LABS: Anion Gap 6 mmol/L; Blood Urea Nitrogen 19 mg/dL (9-20); Calcium 8.7 mg/dL (8.4-10.2); Carbon Dioxide 25 mmol/L (22-30); Chloride 104 mmol/L (98-107); Glucose 98 mg/dL (74-99); Non-African American GFR(MDRD) >60 (>60 ml/min/1.73 sqM); Potassium 3.6 mmol/L (3.5-5.1); Sodium 135 mmol/L (137-145)
[2017-06-12 04:52] LABS: Basophils # (A) 0.1 k/uL (0-0.2); Basophils % (A) 0 %; CH 30.4; CHCM 32.5; Eosinophils # (A) 0.1 k/uL (0-0.7); Eosinophils % (A) 1 %; HCT 32.6 % (39.0-53.0); HDW 2.77; HGB 10.3 gm/dL (13.0-17.5); Hypochromasia Slight; Luc # (Auto) 0.21; Luc % (Auto) 1; Lymphocytes % (A) 10 %; MCH 29.7 pg (25.0-35.0); MCHC 31.8 g/dL (31.0-37.0); MCV 93.6 fL (80.0-100.0); Mean Platelet Volume 7.7; Monocytes # (A) 0.6 k/uL (0-1.0); Monocytes % (A) 3 %; Neutrophils # (A) 17.3 k/uL (1.3-7.7); Neutrophils % (A) 85 %; RBC 3.48 m/uL (4.30-5.90); RDW 13.4 % (11.5-15.5); WBC 20.3 k/uL (3.8-10.6); WBC (Perox) 20.36
[2017-06-12] MEDS: CEFEPIME 2 GM in SODIUM CHLORIDE 0.9% 50 ML IVPB SCH ×3 (06:43→20:07)
[2017-06-12] MEDS: BUDESONIDE 1 MG/2 ML NEBU INHALATION SCH ×2 (07:42→19:05)
[2017-06-12] MEDS: IPRATROPIUM-ALBUTEROL 3 ML NEB INHALATION SCH ×4 (07:43→19:04)
[2017-06-12] MEDS: FORMOTEROL FUMARATE 20 MCG/2 ML NEBU INHALATION SCH ×2 (07:43→19:05)
--- NOTE | 2017-06-12 08:44 | P.PN ---
Subjective Progress Note Date: 06/12/17 Principal diagnosis: Right lower lobe lung abscess, pneumonia, abnormal CT of the chest. Recent fall from standing. History of CVA with residual deficit, right hemiplegia, aphasia, hypertension, hyperlipidemia, COPD, benign prostatic hyperplasia. The patient's currently sitting up in bed in no acute distress. Denies pain. No new complaints. Objective - Vital Signs Vital signs: Vital Signs Temp 98.4 F 06/12/17 03:33 Pulse 100 06/12/17 08:05 Resp 20 06/12/17 03:33 BP 119/65 06/12/17 03:33 Pulse Ox 93 L 06/12/17 03:33 Intake & Output 06/11/17 06/12/17 06/12/17 18:59 06:59 18:59 Intake Total 250 402.407 237 Output Total 2200 618 Balance -1950 -215.593 237 Weight 67 kg 67 kg Intake: IV 200 0.9@25mls/hr 200 Intake, IV Titration 50 202.407 Amount Heparin Sodium,Porcine 25 202.407 ,000 unit In Sodium Chloride 0.9% 500 ml @ 12 UNITS/KG/HR 16.08 mls/hr IV .Q24H [facility] Rx#: [id number] Vancomycin 1,250 mg In 50 Sodium Chloride 0.9% 250 ml @ 125 mls/hr IVPB Q12H [facility] Rx#:[id number] Oral 200 237 Output: Urine 2200 618 Other: Voiding Method Diaper Diaper Indwelling Catheter # Voids 1 # Bowel Movements 2 - Constitutional General appearance: Present: cooperative, no acute distress - Respiratory Details: Lungs sounds diminished with coarse breath sounds on the right. Respirations even, nonlabored. Currently on 2 L nasal cannula with oxygen saturation 93%. - Cardiovascular Details: S1, S2 present. Regular rate and rhythm, normal sinus rhythm on telemetry. Palpable peripheral pulses bilaterally. No edema present. - Gastrointestinal Gastrointestinal Comment(s): Abdomen soft, nontender, nondistended. Active bowel sounds 4 quadrants. Currently nothing by mouth after failing swallow evaluation. - Genitourinary Genitourinary Comment(s): [place] present draining clear, yellow urine. - Neurologic Neurologic Comment(s): Aphasic. - Musculoskeletal Musculoskeletal: Present: left sided weakness - Psychiatric Psychiatric: Present: A&O x's 3, appropriate affect - Allied health notes Allied health notes reviewed: nursing - Labs CBC & Chem 7: 06/12/17 03:35 06/12/17 03:35 Labs: Abnormal Lab Results - Last 24 Hours (Table) 06/11/17 06/11/17 06/11/17 Range/Units 15:40 15:40 20:41 WBC 22.0 H (3.8-10.6) k/uL RBC 3.69 L (4.30-5.90) m/uL Hgb 11.0 L (13.0-17.5) gm/dL Hct 34.0 L (39.0-53.0) % Plt Count 617 H (150-450) k/uL Neutrophils # 18.6 H (1.3-7.7) k/uL PT 12.4 H (9.0-12.0) sec INR 1.3 H (<1.2) APTT 36.8 H (22.0-30.0) sec Sodium (137-145) mmol/L Creatinine (0.66-1.25) mg/dL 06/12/17 06/12/17 06/12/17 Range/Units 03:35 03:35 03:35 WBC 20.3 H (3.8-10.6) k/uL RBC 3.48 L (4.30-5.90) m/uL Hgb 10.3 L (13.0-17.5) gm/dL Hct 32.6 L (39.0-53.0) % Plt Count 517 H (150-450) k/uL Neutrophils # 17.3 H (1.3-7.7) k/uL PT (9.0-12.0) sec INR (<1.2) APTT 31.3 H (22.0-30.0) sec Sodium 135 L (137-145) mmol/L Creatinine 0.60 L (0.66-1.25) mg/dL Microbiology - Last 24 Hours (Table) 06/08/17 09:50 Blood Culture Gram Stain - Final Blood Blood Culture - Final Staphylococcus epidermidis - Imaging and Cardiology CT scan - chest: image reviewed Assessment and Plan (1) Abnormal CT scan, chest Current Visit: Yes Status: Acute Code(s): R93.8 - ABNORMAL FINDINGS ON DIAGNOSTIC IMAGING OF BODY STRUCTURES SNOMED Code(s): 562989985 (2) Abnormal finding on chest xray Current Visit: Yes Status: Acute Code(s): R93.8 - ABNORMAL FINDINGS ON DIAGNOSTIC IMAGING OF BODY STRUCTURES SNOMED Code(s): 647026587 (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 Current Visit: Yes Status: Chronic Code(s): I69.920 - APHASIA FOLLOWING UNSPECIFIED CEREBROVASCULAR DISEASE SNOMED Code(s): 620820927 (4) BPH (benign prostatic hyperplasia) Current Visit: Yes Status: Acute Code(s): N40.0 - BENIGN PROSTATIC HYPERPLASIA WITHOUT LOWER URINRY TRACT SYMP SNOMED Code(s): 209264090 (5) COPD (chronic obstructive pulmonary disease) Current Visit: Yes Status: Chronic Code(s): J44.9 - CHRONIC OBSTRUCTIVE PULMONARY DISEASE, UNSPECIFIED SNOMED Code(s): 14118560 (6) Fall from standing Current Visit: Yes Status: Acute Code(s): W19.XXXA - UNSPECIFIED FALL, INITIAL ENCOUNTER SNOMED Code(s): 5030544 (7) History of cerebrovascular accident (CVA) with residual deficit Current Visit: Yes Status: Chronic Code(s): I69.30 - UNSPECIFIED SEQUELAE OF CEREBRAL INFARCTION SNOMED Code(s): 536965989 (8) Hyperlipidemia Current Visit: Yes Status: Chronic Code(s): E78.5 - HYPERLIPIDEMIA, UNSPECIFIED SNOMED Code(s): 79886272 (9) Hypertension Current Visit: Yes Status: Chronic Code(s): I10 - ESSENTIAL (PRIMARY) HYPERTENSION SNOMED Code(s): 56739956 (10) Leukocytosis Current Visit: Yes Status: Acute Code(s): D72.829 - ELEVATED WHITE BLOOD CELL COUNT, UNSPECIFIED SNOMED Code(s): 243975718 Plan: 1. Pigtail catheter to be placed by interventional radiology. Likely will instill alteplase daily through pigtail catheter. Will monitor drainage once catheter placed. 2. Continue cefepime, vancomycin per infectious disease recommendations. 3. DVT prophylaxis with Lovenox. 4. Failed swallow evaluation. Discussion to take place with regarding possible PEG tube placement. 5. Medical management per primary, pulmonology services. 6. More recommendations to follow as patient progresses. Time with Patient: Greater than 30
--- NOTE | 2017-06-12 09:43 | CT ---
EXAMINATION TYPE: CT chest wo con DATE OF EXAM: 06/12/2017 COMPARISON: NONE HISTORY: Multifocal lung abscess CT DLP: 297.60 mGycm. Automated Exposure Control for Dose Reduction was Utilized. TECHNIQUE: CT scan of the thorax is performed without IV contrast. FINDINGS: LUNGS: The previously seen multiloculated right lower lobe pulmonary abscess was better delineated on the prior CT given the utilization of intravenous contrast at that time. However, this appears overa ll similar to the prior exam measuring at least 10.0 x 9.0 x 4.8 cm in craniocaudal by anterior poste rior by transverse dimension. This again abuts a right lower lobe segmental pulmonary artery and righ t lower lobe segmental pulmonary arteries also course through this on the prior examination. There is clear delineation of the paraspinal fat and therefore this is not paraspinal in location. Right lowe r lobe bronchi do lead to this abscess and therefore there is a possibility of bronchopleural fistula . There is a new small to moderate right pleural effusion with similar right apical pleural calcifica tions and subsegmental atelectasis. Right upper lobe spiculated nodule measures approximately 1.8 x 1 .1 cm on series 4 image 16. There is mediastinal and right hilar adenopathy, however this is not sinai rly defined given the lack of intravenous contrast. Background moderate centrilobular and paraseptal emphysematous change are seen. There is increasing confluence of the right basilar multifocal airspac e disease highly suspicious for pneumonia. New trace left pleural effusion is now seen. Lobular conto ur is seen medially along the right apex on series 4 image 15 through 18. MEDIASTINUM: Adenopathy is present although better defined on the prior examination given intravenous contrast. There is a trace pericardial effusion. Heart is not enlarged. Three-vessel moderate degree coronary artery calcifications are noted. No cardiomegaly or pericardial effusion is seen. OTHER: Small hiatal hernia is again seen. Old posterior healed right lower rib fractures are present. IMPRESSION: 1. Overall similar appearing multiloculated right lower lobe pulmonary abscess, possibly a complicati on of the adjacent multifocal right lower lobe pneumonia although underlying neoplasm is a possibilit y. Increasing right small pleural effusion may be reactive. Lobular appearance medially may represent loculated pleural effusion or extension of the abscess. Right lower lobe segmental bronchi course in to this abscess and potential bronchopleural fistula should be considered. 2. Right hilar and mediastinal adenopathy better appreciated on the prior exam given intravenous cont rast. 3. New trace pericardial effusion and left pleural effusion. 4. Right apical spiculated nodule measuring 1.8 x 1.1 cm that could represent apical pleural scarring although surveillance is recommended to exclude neoplasm. 5. Moderate background centrilobular and paraseptal pulmonary emphysema.
[2017-06-12] MEDS: ASPIRIN 81 MG PO SCH (10:11)
[2017-06-12] MEDS: MELOXICAM 7.5 MG TAB PO SCH (10:11)
[2017-06-12] MEDS: NITROGLYCERIN EXTENDED RELEASE 6.5 MG CAPSULE.ER PO SCH ×2 (10:11→20:11)
[2017-06-12] MEDS: LOSARTAN 25 MG TAB PO SCH (10:11)
[2017-06-12] MEDS: MULTIVITAMINS, THERA 1 EACH TAB PO SCH (10:12)
[2017-06-12] MEDS: SODIUM CHLORIDE TAB 1 GM TAB PO SCH ×3 (10:12→20:11)
[2017-06-12] MEDS: VERAPAMIL 40 MG TAB PO SCH ×3 (10:12→20:11)
--- NOTE | 2017-06-12 11:25 | P.PN ---
Subjective Progress Note Date: 06/12/17 On 06/11/2017 I'm seeing this patient in follow-up. This patient failed the swallow evaluation. I talked to the swallow specialist and the patient is having significant amount of aspiration. The patient also has chronic aspiration he has developed a right lower lobe pneumonia and extensive abscess formation in the superior segment of the right lower lobe. I reviewed the CAT scan of the chest and there is multiple abscesses. Discussed the case with Dr. Natanael Santoyo from interventional radiology. We'll may consider doing a percutaneous drainage of one of these pocketed later stage for diagnostic purposes. The patient meanwhile is covered with broad-spectrum antibiotics and the patient is currently on a combination of cefepime, and vancomycin. The white cell count is elevated at 25.6. There is mild troponin leak noted with troponin levels of 0.1 0.8 respectively 2. The patient is still tachycardic with a heart rate of 120 and a blood pressure is 156/67. The patient is nothing by mouth for now. Consultation is being given for a PEG tube placement. The patient has suffered a previous CVA. The patient has expressive aphasia. On 06/12/2017 the patient is being seen in follow-up. The patient is still having difficulties with swallowing. He has a poor cough. As mentioned earlier he failed swallow and he aspirated and developed also a right lung abscess. A repeat CAT scan of the chest was done this morning without contrast that showed multiloculated right lower lobe pulmonary abscess, a complication of a previous aspiration. Underlying neoplasm is felt to be less likely. There is also some increase in the right-sided small pleural effusion which is felt to be reactive in nature. Based on the radiologist's evaluation, there is a concern of the potential bronchopleural fistula knowing that the right lower lobe segment courses into the abscess itself. There is also evidence of right hilar and mediastinal lymphadenopathy. A right apical aspirated nodule measuring 1.8 x 1.1 cm in size is probably a representation of right apical pleural scar rather than a neoplasm. The patient has background emphysema. The patient is still on broad-spectrum antibiotics. He is afebrile for now. He is less tachycardic compared to yesterday. His pulse oximetry 94% liters of oxygen by nasal cannula. I had a lengthy discussion with the family. They're open to this suggestion the PEG tube insertion for nutritional support. Objective - Vital Signs Vital signs: Vital Signs Temp 97.8 F 06/12/17 08:00 Pulse 100 06/12/17 08:05 Resp 16 06/12/17 08:00 BP 119/60 06/12/17 08:00 Pulse Ox 94 L 06/12/17 08:00 Intake & Output 06/11/17 06/12/17 06/12/17 18:59 06:59 18:59 Intake Total 250 402.407 474 Output Total 2200 618 Balance -1950 -215.593 474 Weight 67 kg 67 kg Intake: IV 200 0.9@25mls/hr 200 Intake, IV Titration 50 202.407 Amount Heparin Sodium,Porcine 25 202.407 ,000 unit In Sodium Chloride 0.9% 500 ml @ 12 UNITS/KG/HR 16.08 mls/hr IV .Q24H [facility] Rx#: [id number] Vancomycin 1,250 mg In 50 Sodium Chloride 0.9% 250 ml @ 125 mls/hr IVPB Q12H [facility] Rx#:[id number] Oral 200 474 Output: Urine 2200 618 Other: Voiding Method Diaper Diaper Diaper Indwelling Catheter Indwelling Catheter # Voids 1 # Bowel Movements 2 - Exam No acute distress, patient cannot communicate verbally as the patient has expressive aphasia. He seems to be alert and fully comprehend any discussion or conversation HENT examination is grossly unremarkable. Mucous membranes are moist. No oral lesions. Neck supple. Full range of motion. No adenopathy thyromegaly or neck vein distention. Cardiovascular examination reveals regular rhythm rate. S1-S2 normal. No S3 or S4. No discernible murmur noted. Lungs reveal diminished breath sounds. Diminished breath sounds especially in the right lung base. Few crackles in the lung basilar areas. No wheezing. Abdomen soft bowel sounds are heard. No masses or tenderness. Extremities reveal weakness/paralysis on the right side. No cyanosis clubbing or significant edema. Skin is without rash or lesion. Neurologic examination is patient has expressive aphasia. A previous CVA. Weak swallow. Increased risk of aspiration. - Labs CBC & Chem 7: 06/12/17 03:35 06/12/17 03:35 Labs: Abnormal Lab Results - Last 24 Hours (Table) 06/11/17 06/11/17 06/11/17 Range/Units 15:40 15:40 20:41 WBC 22.0 H (3.8-10.6) k/uL RBC 3.69 L (4.30-5.90) m/uL Hgb 11.0 L (13.0-17.5) gm/dL Hct 34.0 L (39.0-53.0) % Plt Count 617 H (150-450) k/uL Neutrophils # 18.6 H (1.3-7.7) k/uL PT 12.4 H (9.0-12.0) sec INR 1.3 H (<1.2) APTT 36.8 H (22.0-30.0) sec Sodium (137-145) mmol/L Creatinine (0.66-1.25) mg/dL 06/12/17 06/12/17 06/12/17 Range/Units 03:35 03:35 03:35 WBC 20.3 H (3.8-10.6) k/uL RBC 3.48 L (4.30-5.90) m/uL Hgb 10.3 L (13.0-17.5) gm/dL Hct 32.6 L (39.0-53.0) % Plt Count 517 H (150-450) k/uL Neutrophils # 17.3 H (1.3-7.7) k/uL PT (9.0-12.0) sec INR (<1.2) APTT 31.3 H (22.0-30.0) sec Sodium 135 L (137-145) mmol/L Creatinine 0.60 L (0.66-1.25) mg/dL 06/12/17 Range/Units 10:11 WBC (3.8-10.6) k/uL RBC (4.30-5.90) m/uL Hgb (13.0-17.5) gm/dL Hct (39.0-53.0) % Plt Count (150-450) k/uL Neutrophils # (1.3-7.7) k/uL PT (9.0-12.0) sec INR (<1.2) APTT 32.4 H (22.0-30.0) sec Sodium (137-145) mmol/L Creatinine (0.66-1.25) mg/dL Microbiology - Last 24 Hours (Table) 06/08/17 09:50 Blood Culture Gram Stain - Final Blood Blood Culture - Final Staphylococcus epidermidis Assessment and Plan Plan: Assessment 1 right lung abscess involving the superior segment of the right lower lobe and there is also some consolidation of the right lung base. This is likely secondary to aspiration. A follow-up CAT scan of the chest was done and showed persistent consolidation of the severe segment in the right lower lobe posterior segment. In addition there is a cavitating lung abscess within the posterior segment of the right lower lobe and reactive lymphadenopathy. The right lower bronchus may be going into the abscess itself and it may be worthwhile doing a bronchoscopic evaluation at the later stage to see there is any role for bronchoscopic aspiration of this lung abscess. 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 Proceed with a insertion of a PEG tube. We will consider a rhonchus It evaluation of the right lower lobe and see if there is any potential role for aspiration of the lung abscess bronchoscopically through the right lower lobe. Continue same antibiotic coverage. Patient is less tachycardic compared to yesterday. The patient is afebrile. Family is agreeable for PEG tube insertion. The prior to his first to insert a PEG tube to keep up with this patient nutritional requirements and following that consider a bronchoscopic evaluation. The abscess itself is not in the bottle for percutaneous drainage at this point. We'll discuss this also with the surgeon and interventional radiology.
--- NOTE | 2017-06-12 11:29 | ECHOF ---
Referral Reason: MEASUREMENTS -------- HEIGHT: 182.9 cm WEIGHT: 66.7 kg BP: 97/41 IVSd: 1.0 cm (0.6 - 1.1) LVIDd: 3.5 cm (3.9 - 5.3) LVPWd: 0.9 cm (0.6 - 1.1) IVSs: 1.3 cm LVIDs: 2.3 cm LVPWs: 1.1 cm Ao Diam: 3.0 cm (2.0 - 3.7) AV Cusp: 1.8 cm (1.5 - 2.6) LA Diam: 3.9 cm (2.7 - 3.8) MV EXCURSION: 11.453 mm (> 18.000) MV EF SLOPE: 71 mm/s (70 - 150) EPSS: 1.4 cm MV E Wallace: 0.78 m/s MV DecT: 179 ms MV A Wallace: 1.12 m/s MV E/A Ratio: 0.69 AR PHT: 701 ms RAP: 5.00 mmHg RVSP: 7.19 mmHg FINDINGS -------- Sinus rhythm. This was a technically difficult study with suboptimal views. The left ventricular size is normal. Left ventricular wall thickness is normal. Overall left vent ricular systolic function is low-normal with, an EF between 50 - 55 %. The right ventricle is normal in size and function. The left atrium is normal in size. The right atrium is normal in size. 1.5mg of Definity was utilized for enhancement of images The aortic valve is trileaflet, and appears structurally normal. No aortic stenosis or regurgitation. The mitral valve leaflets are mildly thickened. There is trace mitral regurgitation. Trace tricuspid regurgitation present. The right ventricular systolic pressure, as measured by Dopp ler, is 7.19mmHg. Pulmonic valve appears structurally normal. The aortic root size is normal. The pericardium is normal. CONCLUSIONS -------- 1. Sinus rhythm. 2. This was a technically difficult study with suboptimal views. 3. The left ventricular size is normal. 4. Left ventricular wall thickness is normal. 5. Overall left ventricular systolic function is low-normal with, an EF between 50 - 55 %. 6. The right ventricle is normal in size and function. 7. The left atrium is normal in size. 8. The right atrium is normal in size. 9. 1.5mg of Definity was utilized for enhancement of images 10. The aortic valve is trileaflet, and appears structurally normal. No aortic stenosis or regurgitat ion. 11. The mitral valve leaflets are mildly thickened. 12. There is trace mitral regurgitation. 13. Trace tricuspid regurgitation present. 14. The right ventricular systolic pressure, as measured by Doppler, is 7.19mmHg. 15. Pulmonic valve appears structurally normal. 16. The aortic root size is normal. 17. The pericardium is normal. GROUP THERAPY COUNSELOR: Jacquelyn Noland RDCS
--- NOTE | 2017-06-12 11:31 | P.PN ---
Progress Note - Text Progress Note Date: 06/12/17 DATE OF SERVICE: 06/12/2017 PRESENTING COMPLAINT: Fall, shortness of breath HISTORY OF PRESENT ILLNESS: 86-year-old male with right-sided hemiplegia presents after a fall sustained at home trying to use the urinal and increasing shortness of breath. INTERVAL HISTORY: 06/12/2017: Patient seen in follow-up no family at the bedside, patient sitting up in a chair just finished working with physical therapy. Aware of his surroundings able to recognize care staff appears more alert today not confused. No further episodes of chest pain evaluated by speech yesterday failed swallow evaluation. Her rhythm is atrial fibrillation rate controlled. Will need PEG tube for nutritional support. Remains nothing by mouth. Plans to place a pigtail catheter by interventional radiology, thoracic surgery to monitor once in place. 06/11/2017: Patient seen in follow-up, no family at the bedside, appears comfortable. Aware of his surroundings recognizes care staff does seem a bit confused today has taken his gown off. Patient was transferred to general medicine floor yesterday and had to be returned to 6 E. due to complaints of chest pain and tachycardia. Patient also developed urinary retention overnight for which Hemphill catheter was placed. Patient seen by speech, Patient made nothing by mouth due to failing the swallow evaluation.recommends modified barium swallow evaluation. Due to patient's chronic aspiration and development of lung abscesses, CT of the chest to be completed to determine if any can be drained per pulmonology and interventional radiology. 06/10/2017: Patient seen in follow-up, no family at the bedside, appears comfortable. Appears aware of his surroundings recognizes care staff and myself. Answers questions by nodding his head and trying to speak some. He tolerates his diet, cough noted no sputum production, remains on oxygen. Pulmonology suggests placement of pigtail catheter the right lung for drainage. 06/09/2017: Patient seen in follow-up, remains at the bedside, appears comfortable, appears aware of his surroundings, recognizes care staff, tolerating his diet, some concerns expressed by the that patient has a tendency to put too much in his mouth and there may be possibility of aspiration. Cough is improved, producing less sputum. Remains on oxygen. REVIEW OF SYSTEMS: Done for constitutional ,cardiovascular, GI, pulmonary with relevant findings as above. CURRENT MEDICATIONS DuoNeb, aspirin, Lipitor, cefepime 2 g IV piggyback, budesonide, Perforomist 20 g twice a day, heparin drip, Cozaar 25 mg by mouth daily, Mobic 7.5 mg by mouth daily, Flomax 0.4 mg by mouth at supper. Vancomycin 1250 mg IV piggyback , verapamil 40 mg by mouth 3 times a day PHYSICAL EXAM VITAL SIGNS: Temperature 97.8, pulse 101, respiratory rate 16, blood pressure 119/60, oxygen saturation 94% on 2 L. GENERAL APPEARANCE: Sitting up in a chair, not in distress. EYES: Pupils equal. Conjunctiva normal. NECK: JVD not raised. Mass not palpable. RESPIRATORY: Respiratory effort normal. Lungs diminished expiratory wheezing to auscultation. CARDIOVASCULAR: Irregular rhythm. No edema. ABDOMEN: Soft. Liver and spleen not palpable. No tenderness. No mass palpable. PSYCHIATRY: Able answer some simple straightforward questions by not and answers by nodding and trying to speak. Mood and affect normal. NEUROLOGICAL: Right-sided hemiplegia from previous stroke, right lower extremity atrophy, right arm contracted, has aphasia INVESTIGATIONS: White blood cell count 20.3, platelet count 517, sodium 135, creatinine 0.60, Chest CT: Multiloculated right lower lobe pulmonary abscess, possibly complication of multifocal right lower lobe pneumonia although underlying neoplasm is a possibility. Lobular appearance medially may represent loculated pleural effusion or extension of an abscess. Right lower lobe segmental bronchi course in to this abscess and potential bronchopleural fistula could be considered. ASSESSMENT: - right-sided severe multilobar pneumonia could be aspiration slow to respond -Paroxysmal atrial fibrillation, rate controlled -Chronic obstructive pulmonary disease. 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 -Hyperlipidemia. -Primary osteoarthritis. -Essential hypertension. -Benign prostatic hypertrophy. -moderate protein calorie malnutrition with BMI of 18.6, decreased albumin and reduced muscle mass. -Hyponatremia, suspect hypoosmolar, improving PLAN: is agreeable to have PEG tube placed, plans for pigtail catheter to be placed to drain the loculated pleural effusion/abscess with interventional radiology. Thoracic surgery and pulmonology will continue to follow. Continue current antibiotic therapy per ID. Plan of care discussed at the bedside we will follow closely. MOLD REPAIRER statement: Patient was seen and examined by nurse practitioner Vangie Willard and all elements of the case discussed with attending Dr. Torres
[2017-06-12] MEDS: VANCOMYCIN 1,250 MG in SODIUM CHLORIDE 0.9% 250 ML IVPB SCH ×2 (11:57→23:34)
[2017-06-12] MEDS: METOPROLOL TARTRATE 25 MG TAB PO SCH ×2 (12:50→20:11)
[2017-06-12] MEDS ORDERED: HEPARIN SODIUM,PORCINE 25,000 UNIT in SODIUM CHLORIDE 0.45 % 500 ML IV SCH (15:28)
--- NOTE | 2017-06-12 16:03 | P.PN ---
Subjective Progress Note Date: 06/12/17 This is a pleasant 86-year-old gentleman with a prior history of hypertension, CVA many years ago with residual right side affected. Presented to the emergency department with overall not feeling well, frequent falls and some respiratory distress. He was found to have right lower lobe lung abscess, pneumonia. He underwent modified barium swallow today that showed positive for aspiration. Cardiology was asked to the patient in consultation after the patient had some tachycardia through the night. Initially patient was sinus tachycardia however this morning was found to be in atrial fibrillation with rapid ventricular response. This is paroxysmal. He is currently in sinus rhythm. Upon examination, patient denies complaints of chest discomfort, palpitations, dizziness or syncope. He underwent a modified barium swallow yesterday that showed positive for aspiration. He is currently NPO and discussing possible PEG tube placement. Objective - Vital Signs Vital signs: Vital Signs Temp 97.3 F L 06/12/17 15:27 Pulse 94 06/12/17 15:27 Resp 16 06/12/17 15:27 BP 150/72 06/12/17 15:27 Pulse Ox 98 06/12/17 15:27 Intake & Output 06/11/17 06/12/17 06/12/17 18:59 06:59 18:59 Intake Total 250 402.407 652.89 Output Total 2200 618 900 Balance -1950 -215.593 -247.11 Weight 67 kg 67 kg 67 kg Intake: IV 200 0.9@25mls/hr 200 Intake, IV Titration 50 202.407 178.89 Amount Heparin Sodium,Porcine 25 202.407 178.89 ,000 unit In Sodium Chloride 0.9% 500 ml @ 12 UNITS/KG/HR 16.08 mls/hr IV .Q24H [facility] Rx#: [id number] Vancomycin 1,250 mg In 50 Sodium Chloride 0.9% 250 ml @ 125 mls/hr IVPB Q12H [facility] Rx#:[id number] Oral 200 474 Output: Urine 2200 618 900 Other: Voiding Method Diaper Diaper Indwelling Catheter Indwelling Catheter # Voids 1 # Bowel Movements 2 - Exam PHYSICAL EXAMINATION: HEENT: Head is atraumatic, normocephalic. Pupils equal, round. Neck is supple. There is no elevated jugular venous pressure. HEART EXAMINATION: Heart sounds regular, S1 and S2 normal. No murmur or gallop heard. CHEST EXAMINATION: Lungs reveal diminished air entry. No chest wall tenderness is noted on palpation or with deep breathing. ABDOMEN: Soft, nontender. Bowel sounds are heard. No organomegaly noted. EXTREMITIES: 2+ peripheral pulses with no evidence of peripheral edema and no calf tenderness noted. NEUROLOGIC patient is awake, alert and oriented x3. Right sided weakness. - Labs CBC & Chem 7: 06/12/17 03:35 06/12/17 03:35 Labs: Abnormal Lab Results - Last 24 Hours (Table) 06/11/17 06/11/17 06/12/17 Range/Units 15:40 20:41 03:35 WBC 20.3 H (3.8-10.6) k/uL RBC 3.48 L (4.30-5.90) m/uL Hgb 10.3 L (13.0-17.5) gm/dL Hct 32.6 L (39.0-53.0) % Plt Count 517 H (150-450) k/uL Neutrophils # 17.3 H (1.3-7.7) k/uL PT 12.4 H (9.0-12.0) sec INR 1.3 H (<1.2) APTT 36.8 H (22.0-30.0) sec Sodium (137-145) mmol/L Creatinine (0.66-1.25) mg/dL 06/12/17 06/12/17 06/12/17 Range/Units 03:35 03:35 10:11 WBC (3.8-10.6) k/uL RBC (4.30-5.90) m/uL Hgb (13.0-17.5) gm/dL Hct (39.0-53.0) % Plt Count (150-450) k/uL Neutrophils # (1.3-7.7) k/uL PT (9.0-12.0) sec INR (<1.2) APTT 31.3 H 32.4 H (22.0-30.0) sec Sodium 135 L (137-145) mmol/L Creatinine 0.60 L (0.66-1.25) mg/dL Assessment and Plan Assessment: #1 multiple right lower lobe lung abscess and pneumonia secondary to recurrent aspiration #2 hypertension #3 paroxysmal atrial fibrillation with rapid ventricular response #4 hyperlipidemia #5 history of CVA #6 recurrent aspiration Plan: From cardiology's perspective, we will continue IV heparin for anticoagulation. Patient remains NPO. Medications are on hold. We will continue to follow the patient and monitor for further episodes of atrial fibrillation with RVR and make further recommendations accordingly. TUBING SUPERVISOR note has been reviewed, I agree with a documented findings and plan of care. Patient was seen and examined.
[2017-06-12] MEDS: HEPARIN SODIUM,PORCINE 25,000 UNIT in SODIUM CHLORIDE 0.9% 500 ML IV SCH (16:11)
[2017-06-12] MEDS: TAMSULOSIN 0.4 MG CAP.ER.24H PO SCH (16:13)
--- NOTE | 2017-06-12 16:14 | FL ---
EXAMINATION TYPE: FL barium swallow w video DATE OF EXAM: 06/11/2017 MODIFIED SWALLOW / DEGLUTITION STUDY CLINICAL HISTORY: Dysphagia. TECHNIQUE: Deglutition study is performed utilizing thin liquid barium, honey and nectar thick liqui d barium, barium thick applesauce, and barium coated cracker. 72 seconds of fluoroscopy time was util ized with 0 images saved. COMPARISON: None. FINDINGS: The oral and pharyngeal phases show satisfactory initiation and propagation with all modali ties tested. Normal mastication is seen with solid modalities tested. There is no evidence of penet ration or aspiration with any modality tested. Moderate to severe pharyngeal residuals within the agus lecula and piriform sinuses as well as the posterior pharynx. IMPRESSION: Moderate to severe pharyngeal residuals. No evidence of aspiration or laryngeal penetrati on. Please refer to speech therapist notes for further details if necessary.
--- NOTE | 2017-06-12 16:37 | PN ---
PROGRESS NOTE DATE OF SERVICE: 06/12/17 ATTENDING NOTE: Patient seen and examined by me. I discussed with nurse practitioner, Ms. Willard. The patient is sitting up on a chair, n.p.o. EXAMINATION: Afebrile, pulse 95, respirations 16, blood pressure 140/60. Lungs: Decreased breath sounds. Awake, following commands. INVESTIGATIONS: White count 20.3, potassium 3.6. ASSESSMENT: Right-sided multilobar pneumonia with abscess, slow to respond. White count remains up. The patient is going to be n.p.o. Family is agreeable for a PEG tube. Discussed with the patient and daughter. The patient has had a PEG tube before. MMODL / IJN: [id number] /
[2017-06-12] MEDS: ATORVASTATIN 20 MG TAB PO SCH (20:11)
--- NOTE | 2017-06-12 21:44 | P.PN ---
Subjective Progress Note Date: 06/12/17 Principal diagnosis: Lung abscess 86-year-old male presents to hospital with concerns to pneumonia. He has a known history of stroke and does have some difficulties with swallowing. He also has significant periodontal disease. He has been seen by pulmonary medicine as well as cardiothoracic surgery because of the onset of a significant lung abscess. It appears there has been a request for percutaneous drainage from interventional radiology. At this time this 86-year-old gentleman is able to communicate with the forward and with response to yes and no questions. He relates that he is quite comfortable and does not have any significant discomfort at this time. His shortness of breath is improved. Fevers have improved ,failed his swallow study Will have PEG tube tomorrow,due to ongoing aspiration of food. Objective - Vital Signs Vital signs: Vital Signs Temp 97.3 F L 06/12/17 15:27 Pulse 99 06/12/17 19:19 Resp 16 06/12/17 16:00 BP 150/72 06/12/17 15:27 Pulse Ox 98 06/12/17 15:27 Intake & Output 06/12/17 06/12/17 06/13/17 06:59 18:59 06:59 Intake Total 402.407 652.89 Output Total 618 900 Balance -215.593 -247.11 Weight 67 kg 67 kg Intake: IV 200 0.9@25mls/hr 200 Intake, IV Titration 202.407 178.89 Amount Heparin Sodium,Porcine 25 202.407 178.89 ,000 unit In Sodium Chloride 0.9% 500 ml @ 12 UNITS/KG/HR 16.08 mls/hr IV .Q24H [facility] Rx#: [id number] Oral 474 Output: Urine 618 900 Other: Voiding Method Diaper Indwelling Catheter Indwelling Catheter # Voids 200 - Exam 86-year-old male who is comfortable. He has the obvious right sided weakness. He however does have the ability to utilize his mouth and he does not drool HEENT: Anicteric conjunctiva are pink and moist nasal mucosa grossly intact without significant lesions, there is no thrush. Oral mucosa somewhat dry Neck: The neck is supple without significant lymphadenopathy or thyromegaly. Lungs: There are symmetrical air entry. On the right posterior chest is evidence of bronchial sounds as well as dullness some expiratory wheezes are heard Heart: Regular rate and rhythm with an audible S1-S2, no S3 no S4. There is no significant murmur click or rub, PMI was nondisplaced. Abdomen: Positive bowel sounds soft and nontender without palpable masses or organomegaly. There was no guarding or rebound. Extremities: The upper extremities have excellent pulses they are symmetric, no significant petechiae or telangiectasia. No splinter hemorrhages were noted. The lower extremities are free from significant edema. The peripheral pulses were 2+ and symmetric. Neuro: Patient is pleasant and cooperative. He has the dense right hemiparesis with difficulty with speech. However able to utilize a picture board and answer yes or no questions - Labs CBC & Chem 7: 06/12/17 03:35 06/12/17 03:35 Labs: Abnormal Lab Results - Last 24 Hours (Table) 06/12/17 06/12/17 06/12/17 Range/Units 03:35 03:35 03:35 WBC 20.3 H (3.8-10.6) k/uL RBC 3.48 L (4.30-5.90) m/uL Hgb 10.3 L (13.0-17.5) gm/dL Hct 32.6 L (39.0-53.0) % Plt Count 517 H (150-450) k/uL Neutrophils # 17.3 H (1.3-7.7) k/uL APTT 31.3 H (22.0-30.0) sec Sodium 135 L (137-145) mmol/L Creatinine 0.60 L (0.66-1.25) mg/dL 06/12/17 06/12/17 Range/Units 10:11 18:06 WBC (3.8-10.6) k/uL RBC (4.30-5.90) m/uL Hgb (13.0-17.5) gm/dL Hct (39.0-53.0) % Plt Count (150-450) k/uL Neutrophils # (1.3-7.7) k/uL APTT 32.4 H 47.6 H (22.0-30.0) sec Sodium (137-145) mmol/L Creatinine (0.66-1.25) mg/dL Laboratory Results WBC 20.3 k/uL (3.8-10.6) H 06/12/17 03:35 RBC 3.48 m/uL (4.30-5.90) L 06/12/17 03:35 Hgb 10.3 gm/dL (13.0-17.5) L 06/12/17 03:35 Hct 32.6 % (39.0-53.0) L 06/12/17 03:35 MCV 93.6 fL (80.0-100.0) 06/12/17 03:35 MCH 29.7 pg (25.0-35.0) 06/12/17 03:35 MCHC 31.8 g/dL (31.0-37.0) 06/12/17 03:35 RDW 13.4 % (11.5-15.5) 06/12/17 03:35 Plt Count 517 k/uL (150-450) H 06/12/17 03:35 Neutrophils % 85 % 06/12/17 03:35 Lymphocytes % 10 % 06/12/17 03:35 Monocytes % 3 % 06/12/17 03:35 Eosinophils % 1 % 06/12/17 03:35 Basophils % 0 % 06/12/17 03:35 Neutrophils # 17.3 k/uL (1.3-7.7) H 06/12/17 03:35 Lymphocytes # 2.0 k/uL (1.0-4.8) 06/12/17 03:35 Monocytes # 0.6 k/uL (0-1.0) 06/12/17 03:35 Eosinophils # 0.1 k/uL (0-0.7) 06/12/17 03:35 Basophils # 0.1 k/uL (0-0.2) 06/12/17 03:35 Manual Slide Review Performed 06/08/17 09:50 Toxic Granulation Present 06/08/17 09:50 Hypochromasia Slight 06/12/17 03:35 Poikilocytosis (manual Present 06/08/17 09:50 PT 12.4 sec (9.0-12.0) H 06/11/17 15:40 INR 1.3 (<1.2) H 06/11/17 15:40 APTT 47.6 sec (22.0-30.0) H 06/12/17 18:06 Sodium 135 mmol/L (137-145) L 06/12/17 03:35 Potassium 3.6 mmol/L (3.5-5.1) 06/12/17 03:35 Chloride 104 mmol/L (98-107) 06/12/17 03:35 Carbon Dioxide 25 mmol/L (22-30) 06/12/17 03:35 Anion Gap 6 mmol/L 06/12/17 03:35 BUN 19 mg/dL (9-20) 06/12/17 03:35 Creatinine 0.60 mg/dL (0.66-1.25) L 06/12/17 03:35 Est GFR (MDRD) Af Amer >60 (>60 ml/min/1.73 sqM) 06/12/17 03:35 Est GFR (MDRD) Non-Af >60 (>60 ml/min/1.73 sqM) 06/12/17 03:35 Glucose 98 mg/dL (74-99) 06/12/17 03:35 POC Glucose (mg/dL) 113 mg/dL (75-99) H 06/11/17 00:51 POC Glu [employer]ing Machine T[employer] ID Kiki Mccoy 06/11/17 00:51 Osmolality 270 mosm/kg (280-301) L 06/09/17 05:36 Plasma Lactic Acid Saulo 1.3 mmol/L (0.7-2.0) 06/08/17 09:50 Calcium 8.7 mg/dL (8.4-10.2) 06/12/17 03:35 Magnesium 2.0 mg/dL (1.6-2.3) 06/08/17 09:50 Total Bilirubin 0.6 mg/dL (0.2-1.3) 06/08/17 09:50 AST 31 U/L (17-59) 06/08/17 09:50 ALT 68 U/L (21-72) 06/08/17 09:50 Alkaline Phosphatase 119 U/L (38-126) 06/08/17 09:50 Total Creatine Kinase 75 U/L (55-170) 06/08/17 09:50 CK-MB (CK-2) 1.1 ng/mL (0.0-2.4) 06/08/17 09:50 CK-MB (CK-2) Rel Index 1.5 06/08/17 09:50 Troponin I 0.807 ng/mL (0.000-0.034) H* 06/11/17 05:23 NT-Pro-B Natriuret Pep 1690 pg/mL 06/08/17 09:50 Total Protein 6.0 g/dL (6.3-8.2) L 06/08/17 09:50 Albumin 2.3 g/dL (3.5-5.0) L 06/08/17 09:50 Urine Color Yellow 06/08/17 13:00 Urine Appearance Clear (Clear) 06/08/17 13:00 Urine pH 6.0 (5.0-8.0) 06/08/17 13:00 Ur Specific [place] 1.013 (1.001-1.035) 06/08/17 13:00 Urine Protein Trace (Negative) H 06/08/17 13:00 Urine Glucose (UA) Negative (Negative) 06/08/17 13:00 Urine Ketones Negative (Negative) 06/08/17 13:00 Urine Blood Negative (Negative) 06/08/17 13:00 Urine Nitrite Negative (Negative) 06/08/17 13:00 Urine Bilirubin Negative (Negative) 06/08/17 13:00 Urine Urobilinogen 2.0 mg/dL (<2.0) 06/08/17 13:00 Ur Leukocyte Esterase Negative (Negative) 06/08/17 13:00 Vancomycin Trough 14.3 ug/mL 06/11/17 10:26 Microbiology 06/08/17 09:50 Blood Blood Culture Gram Stain - Final 06/08/17 09:50 Blood Blood Culture - Final Staphylococcus epidermidis 06/08/17 09:50 Blood Blood Culture - Final Assessment and Plan (1) Abscess of lung with pneumonia Narrative/Plan: 86-year-old male presents to hospital with alteration in his status in about evidence of a significant right lower lobe pulmonary abscess. 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 Fortunately patient is showing some improvement although he does have an extensive leukocytosis. Interventional radiology has been consulted and a percutaneous pigtail catheter drainage of the lung abscesses been requested. Culture should be obtained at the time of the procedure. As well as pathology, although complete drainage of the abscess is not likely due to its loculated nature, Samples would still give us culture and cytology to evaluate for malignancies. Other cultures are process. Leukocytosis appears to related to his significant abscess and he has not been receiving large amounts of steroids at this time. Blood cultures are negative. Further evaluation to his swallowing he failed his swallow evaluation. Does have evidence of protein calorie malnutrition. The patient is an extensive decline of his status. Plans now for PEG tube have been made, desires to continue care. May need a bronchoscopy to lavage and obtain samples. Current Visit: Yes Status: Acute Code(s): J85.1 - ABSCESS OF LUNG WITH PNEUMONIA SNOMED Code(s): 331960572 (2) Leukocytosis Current Visit: Yes Status: Acute Code(s): D72.829 - ELEVATED WHITE BLOOD CELL COUNT, UNSPECIFIED SNOMED Code(s): 510416151 (3) History of cerebrovascular accident (CVA) with residual deficit Current Visit: Yes Status: Chronic Code(s): I69.30 - UNSPECIFIED SEQUELAE OF CEREBRAL INFARCTION SNOMED Code(s): 073076693
[2017-06-13] MEDS: CEFEPIME 2 GM in SODIUM CHLORIDE 0.9% 50 ML IVPB SCH ×3 (05:27→22:44)
[2017-06-13 06:24] LABS: Basophils # (A) 0.1 k/uL (0-0.2); Basophils % (A) 0 %; CH 30.4; CHCM 32.3; Eosinophils # (A) 0.2 k/uL (0-0.7); Eosinophils % (A) 1 %; HCT 34.1 % (39.0-53.0); HDW 2.76; HGB 10.8 gm/dL (13.0-17.5); Hypochromasia Slight; Luc # (Auto) 0.23; Luc % (Auto) 1; Lymphocytes # (A) 1.9 k/uL (1.0-4.8); Lymphocytes % (A) 9 %; MCH 29.8 pg (25.0-35.0); MCHC 31.5 g/dL (31.0-37.0); MCV 94.6 fL (80.0-100.0); Mean Platelet Volume 7.2; Monocytes # (A) 0.5 k/uL (0-1.0); Monocytes % (A) 3 %; Neutrophils # (A) 18.2 k/uL (1.3-7.7); Neutrophils % (A) 86 %; RBC 3.61 m/uL (4.30-5.90); RDW 13.4 % (11.5-15.5); WBC 21.2 k/uL (3.8-10.6); WBC (Perox) 19.99
[2017-06-13] MEDS: FORMOTEROL FUMARATE 20 MCG/2 ML NEBU INHALATION SCH ×2 (07:41→19:19)
[2017-06-13] MEDS: IPRATROPIUM-ALBUTEROL 3 ML NEB INHALATION SCH ×4 (07:41→19:19)
[2017-06-13] MEDS: BUDESONIDE 1 MG/2 ML NEBU INHALATION SCH ×2 (07:41→19:19)
[2017-06-13] MEDS ORDERED: METOPROLOL TARTRATE 5 MG/5 ML VIAL IVP ONE ×2 (07:44→07:55)
[2017-06-13] MEDS ORDERED: MORPHINE SULFATE 2 MG/ML SYRINGE IVP PRN (07:55)
[2017-06-13] MEDS ORDERED: NITROGLYCERIN SL TABS 0.4 MG TAB SUBLINGUAL STA (07:55)
[2017-06-13] MEDS ORDERED: MORPHINE SULFATE 2 MG/ML SYRINGE ONE (07:56)
[2017-06-13] MEDS ORDERED: NITROGLYCERIN SL TABS 0.4 MG TAB SUBLINGUAL ONE (07:57)
[2017-06-13] MEDS ORDERED: FUROSEMIDE 10 MG/ML 4 ML VIAL IV STA (08:24)
--- NOTE | 2017-06-13 08:26 | P.PN ---
Subjective Progress Note Date: 06/13/17 Principal diagnosis: Right lower lobe lung abscess, pneumonia, abnormal CT of the chest. Recent fall from standing. History of CVA with residual deficit, right hemiplegia, aphasia, hypertension, hyperlipidemia, COPD, benign prostatic hyperplasia. Acute hypoxic respiratory failure requiring BiPAP. This patient developed respiratory distress this morning with increasing FiO2 requirements. IV Lasix was given with good diuresis, however patient was just transferred to the intensive care unit and placed on BiPAP. Does appear to be somewhat more comfortable. Objective - Vital Signs Vital signs: Vital Signs Temp 98.0 F 06/13/17 04:00 Pulse 117 H 06/13/17 07:52 Resp 18 06/13/17 04:00 BP 164/77 06/13/17 04:00 Pulse Ox 92 L 06/13/17 04:00 Intake & Output 06/12/17 06/13/17 06/13/17 18:59 06:59 18:59 Intake Total 652.89 650 Output Total 900 900 Balance -247.11 -250 Weight 67 kg 66.5 kg Intake: IV 300 0.9@25mls/hr 300 Intake, IV Titration 178.89 350 Amount Cefepime 2 gm In Sodium 100 Chloride 0.9% 50 ml @ 100 mls/hr IVPB Q8H [facility] Rx#: [id number] Heparin Sodium,Porcine 25 178.89 ,000 unit In Sodium Chloride 0.9% 500 ml @ 12 UNITS/KG/HR 16.08 mls/hr IV .Q24H [facility] Rx#: [id number] Vancomycin 1,250 mg In 250 Sodium Chloride 0.9% 250 ml @ 125 mls/hr IVPB Q12H [facility] Rx#:[id number] Oral 474 Output: Urine 900 900 Other: Voiding Method Indwelling Catheter Indwelling Catheter # Voids 200 1 - Constitutional General appearance: Present: cooperative, mild distress, thin - Respiratory Details: Lungs sounds coarse bilaterally. Respirations slightly labored, tachypneic. Currently on BiPAP with FiO2 60%, IPAP 10, EPAP 5. Awaiting chest x-ray. - Cardiovascular Details: S1, S2 present. Tachycardia rate and rhythm, sinus tach on telemetry. Palpable peripheral pulses bilaterally. No edema present. - Gastrointestinal Gastrointestinal Comment(s): Abdomen soft, nontender, nondistended. Active bowel sounds 4 quadrants. Currently nothing by mouth as he has failed his swallow evaluation. - Genitourinary Genitourinary Comment(s): [place] present draining clear, yellow urine. - Neurologic Neurologic Comment(s): Aphasic. - Musculoskeletal Musculoskeletal: Present: right sided weakness - Psychiatric Psychiatric: Present: A&O x's 3, appropriate affect - Allied health notes Allied health notes reviewed: nursing - Labs CBC & Chem 7: 06/13/17 05:45 06/12/17 03:35 Labs: Abnormal Lab Results - Last 24 Hours (Table) 06/12/17 06/12/17 06/13/17 Range/Units 10:11 18:06 05:45 WBC 21.2 H (3.8-10.6) k/uL RBC 3.61 L (4.30-5.90) m/uL Hgb 10.8 L (13.0-17.5) gm/dL Hct 34.1 L (39.0-53.0) % Plt Count 485 H (150-450) k/uL Neutrophils # 18.2 H (1.3-7.7) k/uL APTT 32.4 H 47.6 H (22.0-30.0) sec 06/13/17 Range/Units 05:45 WBC (3.8-10.6) k/uL RBC (4.30-5.90) m/uL Hgb (13.0-17.5) gm/dL Hct (39.0-53.0) % Plt Count (150-450) k/uL Neutrophils # (1.3-7.7) k/uL APTT 30.5 H (22.0-30.0) sec - Imaging and Cardiology Chest x-ray: pending Assessment and Plan (1) Abnormal CT scan, chest Current Visit: Yes Status: Acute Code(s): R93.8 - ABNORMAL FINDINGS ON DIAGNOSTIC IMAGING OF BODY STRUCTURES SNOMED Code(s): 988416507 (2) Abnormal finding on chest xray Current Visit: Yes Status: Acute Code(s): R93.8 - ABNORMAL FINDINGS ON DIAGNOSTIC IMAGING OF BODY STRUCTURES SNOMED Code(s): 004203677 (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 Current Visit: Yes Status: Chronic Code(s): I69.920 - APHASIA FOLLOWING UNSPECIFIED CEREBROVASCULAR DISEASE SNOMED Code(s): 103888913 (4) BPH (benign prostatic hyperplasia) Current Visit: Yes Status: Acute Code(s): N40.0 - BENIGN PROSTATIC HYPERPLASIA WITHOUT LOWER URINRY TRACT SYMP SNOMED Code(s): 405919442 (5) COPD (chronic obstructive pulmonary disease) Current Visit: Yes Status: Chronic Code(s): J44.9 - CHRONIC OBSTRUCTIVE PULMONARY DISEASE, UNSPECIFIED SNOMED Code(s): 67913248 (6) Fall from standing Current Visit: Yes Status: Acute Code(s): W19.XXXA - UNSPECIFIED FALL, INITIAL ENCOUNTER SNOMED Code(s): 9492800 (7) History of cerebrovascular accident (CVA) with residual deficit Current Visit: Yes Status: Chronic Code(s): I69.30 - UNSPECIFIED SEQUELAE OF CEREBRAL INFARCTION SNOMED Code(s): 051756674 (8) Hyperlipidemia Current Visit: Yes Status: Chronic Code(s): E78.5 - HYPERLIPIDEMIA, UNSPECIFIED SNOMED Code(s): 56559187 (9) Hypertension Current Visit: Yes Status: Chronic Code(s): I10 - ESSENTIAL (PRIMARY) HYPERTENSION SNOMED Code(s): 91613870 (10) Leukocytosis Current Visit: Yes Status: Acute Code(s): D72.829 - ELEVATED WHITE BLOOD CELL COUNT, UNSPECIFIED SNOMED Code(s): 408201210 (11) Acute respiratory failure with hypoxia Current Visit: Yes Status: Acute Code(s): J96.01 - ACUTE RESPIRATORY FAILURE WITH HYPOXIA SNOMED Code(s): 11544845 Plan: 1. Possible bronchoscopy per pulmonology to aspirate and drain abscess. BiPAP management per pulmonology. 2. Continue cefepime, vancomycin per infectious disease recommendations. 3. DVT prophylaxis with Lovenox. 4. Failed swallow evaluation. Plan is for PEG tube placement. 5. Medical management per primary services. 6. Will continue to follow as needed. Time with Patient: Greater than 30
--- NOTE | 2017-06-13 08:41 | XR ---
EXAMINATION TYPE: XR chest 1V portable DATE OF EXAM: 06/13/2017 COMPARISON: Prior chest x-ray 06/11/2017 HISTORY: Shortness of breath TECHNIQUE: Single frontal view of the chest is obtained. FINDINGS: Findings are similar to prior exam. Pleural parenchymal changes in the right hemithorax ar e not significantly changed. Heart is small. There is underlying COPD. There are overlying cardiac le ads. Right lower lobe pneumonia changes are again seen. IMPRESSION: Emphysema, right lower lobe pneumonia.
[2017-06-13] MEDS: METOPROLOL TARTRATE 25 MG TAB PO SCH ×2 (09:45→21:21)
[2017-06-13] MEDS: LOSARTAN 25 MG TAB PO SCH (09:45)
[2017-06-13] MEDS: MELOXICAM 7.5 MG TAB PO SCH (09:45)
[2017-06-13] MEDS: ASPIRIN 81 MG PO SCH (09:45)
[2017-06-13] MEDS: NITROGLYCERIN EXTENDED RELEASE 6.5 MG CAPSULE.ER PO SCH ×2 (09:46→21:21)
[2017-06-13] MEDS: VERAPAMIL 40 MG TAB PO SCH ×3 (09:46→21:26)
[2017-06-13] MEDS: SODIUM CHLORIDE TAB 1 GM TAB PO SCH ×3 (09:46→21:26)
[2017-06-13] MEDS: VANCOMYCIN 1,250 MG in SODIUM CHLORIDE 0.9% 250 ML IVPB SCH (12:05)
[2017-06-13] MEDS: MULTIVITAMINS, THERA 1 EACH TAB PO SCH (12:40)
--- NOTE | 2017-06-13 12:56 | P.PN ---
<Melody Hebert M - Last Filed: 06/13/17 12:39> Subjective Progress Note Date: 06/13/17 Principal diagnosis: Acute hypoxic respiratory failure due to right lung abscess of the superior segment of the right lower lobe and right lung base secondary to aspiration On 06/11/2017 I'm seeing this patient in follow-up. This patient failed the swallow evaluation. I talked to the swallow specialist and the patient is having significant amount of aspiration. The patient also has chronic aspiration he has developed a right lower lobe pneumonia and extensive abscess formation in the superior segment of the right lower lobe. I reviewed the CAT scan of the chest and there is multiple abscesses. Discussed the case with Dr. Natanael Santoyo from interventional radiology. We'll may consider doing a percutaneous drainage of one of these pocketed later stage for diagnostic purposes. The patient meanwhile is covered with broad-spectrum antibiotics and the patient is currently on a combination of cefepime, and vancomycin. The white cell count is elevated at 25.6. There is mild troponin leak noted with troponin levels of 0.1 0.8 respectively 2. The patient is still tachycardic with a heart rate of 120 and a blood pressure is 156/67. The patient is nothing by mouth for now. Consultation is being given for a PEG tube placement. The patient has suffered a previous CVA. The patient has expressive aphasia. On 06/12/2017 the patient is being seen in follow-up. The patient is still having difficulties with swallowing. He has a poor cough. As mentioned earlier he failed swallow and he aspirated and developed also a right lung abscess. A repeat CAT scan of the chest was done this morning without contrast that showed multiloculated right lower lobe pulmonary abscess, a complication of a previous aspiration. Underlying neoplasm is felt to be less likely. There is also some increase in the right-sided small pleural effusion which is felt to be reactive in nature. Based on the radiologist's evaluation, there is a concern of the potential bronchopleural fistula knowing that the right lower lobe segment courses into the abscess itself. There is also evidence of right hilar and mediastinal lymphadenopathy. A right apical aspirated nodule measuring 1.8 x 1.1 cm in size is probably a representation of right apical pleural scar rather than a neoplasm. The patient has background emphysema. The patient is still on broad-spectrum antibiotics. He is afebrile for now. He is less tachycardic compared to yesterday. His pulse oximetry 94% liters of oxygen by nasal cannula. I had a lengthy discussion with the family. They're open to this suggestion the PEG tube insertion for nutritional support. On 06/13/2017 patient has been transferred to the intensive care this morning, the team has been called for concern about patient's respiratory decompensation , desaturation, increased shortness of breath. When the patient was assessed by the rapid response team, patient was felt to be in fluid overload/flash pulmonary edema. He may have aspirated again. 40 mg of Lasix IV push was given and patient was placed on BiPAP ventilatory support. He diuresed about 700 mL of dilute urine, his oxygenation remained poor on BiPAP support, only 88 % on FiO2 of 60%. Patient's respiratory status remained marginal after the rapid response interventions and the decision was made to transfer the patient to the intensive care for further treatment. He was scheduled for PEG tube placement today but in view of his respiratory deterioration this was canceled. He is a status DO NOT RESUSCITATE, his family was notified of the transfer. At the time of my evaluation patient is awake, alert, he is aphasic, but able to understand verbal commands. His breathing is slightly improved and he is less dyspneic on BiPAP. He has been on antibiotics in the form of cefepime and vancomycin for his right lung abscess. Interventional radiology was consulted for a percutaneous pigtail catheter for the drainage of the lung abscess, however because of the loculation, the procedure was not thought to be possible. His white count is up to 21.2 today, he has been afebrile. From has been reviewed by Dr. Gaffney and right lower lobe pulmonary abscess was again seen. Objective - Vital Signs Vital signs: Vital Signs Temp 98.0 F 06/13/17 04:00 Pulse 93 06/13/17 12:16 Resp 24 06/13/17 12:00 BP 139/82 06/13/17 12:00 Pulse Ox 96 06/13/17 12:00 Intake & Output 06/12/17 06/13/17 06/13/17 18:59 06:59 18:59 Intake Total 652.89 650 60 Output Total 900 900 550 Balance -247.11 -250 -490 Weight 67 kg 66.5 kg Intake: IV 300 60 0.9@25mls/hr 300 60 Intake, IV Titration 178.89 350 Amount Cefepime 2 gm In Sodium 100 Chloride 0.9% 50 ml @ 100 mls/hr IVPB Q8H [facility] Rx#: [id number] Heparin Sodium,Porcine 25 178.89 ,000 unit In Sodium Chloride 0.9% 500 ml @ 12 UNITS/KG/HR 16.08 mls/hr IV .Q24H [facility] Rx#: [id number] Vancomycin 1,250 mg In 250 Sodium Chloride 0.9% 250 ml @ 125 mls/hr IVPB Q12H [facility] Rx#:[id number] Oral 474 Output: Urine 900 900 550 Other: Voiding Method Indwelling Catheter Indwelling Catheter Indwelling Catheter # Voids 200 1 - Exam No acute distress, patient cannot communicate verbally as the patient has expressive aphasia. He seems to be alert and fully comprehend any discussion or conversation. On BiPAP ventilatory support HENT examination is grossly unremarkable. Mucous membranes are moist. No oral lesions. Neck supple. Full range of motion. No adenopathy thyromegaly or neck vein distention. Cardiovascular examination reveals regular rhythm rate. S1-S2 normal. No S3 or S4. No discernible murmur noted. Lungs reveal diminished breath sounds. Diminished breath sounds especially in the right lung base. Few crackles in the lung basilar areas. No wheezing. Abdomen soft bowel sounds are heard. No masses or tenderness. Extremities reveal weakness/paralysis on the right side. No cyanosis clubbing or significant edema. Skin is without rash or lesion. Neurologic examination is patient has expressive aphasia. A previous CVA. Weak swallow. Increased risk of aspiration. - Labs CBC & Chem 7: 06/13/17 05:45 06/12/17 03:35 Labs: Abnormal Lab Results - Last 24 Hours (Table) 06/12/17 06/13/17 06/13/17 Range/Units 18:06 05:45 05:45 WBC 21.2 H (3.8-10.6) k/uL RBC 3.61 L (4.30-5.90) m/uL Hgb 10.8 L (13.0-17.5) gm/dL Hct 34.1 L (39.0-53.0) % Plt Count 485 H (150-450) k/uL Neutrophils # 18.2 H (1.3-7.7) k/uL APTT 47.6 H 30.5 H (22.0-30.0) sec Assessment and Plan Plan: Assessment 1. Acute hypoxic respiratory failure secondary to aspiration, related to complication of previous CVA. Acute deterioration in respiratory status, requiring rapid response team intervention with IV diuretics and placement on BiPAP ventilatory support and transferred to the intensive care. 2 right lung abscess involving the superior segment of the right lower lobe and there is also some consolidation of the right lung base. This is likely secondary to aspiration. A follow-up CAT scan of the chest was done and showed persistent consolidation of the severe segment in the right lower lobe posterior segment. In addition there is a cavitating lung abscess within the posterior segment of the right lower lobe and reactive lymphadenopathy. The right lower bronchus may be going into the abscess itself and it may be worthwhile doing a bronchoscopic evaluation at the later stage to see there is any role for bronchoscopic aspiration of this lung abscess. 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 Suspect acute aspiration causing the sudden decline in oxygenation and respiratory status. Patient is diuresing well , tolerating the BiPAP support well. The PEG tube placement has been canceled for today. Keep the patient nothing by mouth. Interventional radiology was unable to proceed with pigtail catheter placement for the drainage of the right lower lung abscess in view of loculation. We will consider a bhonch, once we stabilize the patient's condition. He remains status DO NOT RESUSCITATE. Continue current medical treatment, may consider adding an antibiotic agent for anaerobic coverage. The plan was discussed with the patient and family who are in agreement. Patient is relatively stable at this point, being closely monitored in the ICU on BiPAP ventilatory support. I performed a history & physical examination of the patient and discussed their management with my nurse practitioner, Melody Hebert. I reviewed the nurse practitioner's note and agree with the documented findings and plan of care. Lung sounds are positive for bibasilar crackles. The findings and the impression was discussed with the patient. I attest to the documentation by the nurse practitioner. Time with Patient: Greater than 30 <Fiordaliza Gaffney - Last Filed: 06/13/17 13:27> Objective - Vital Signs Vital signs: Vital Signs Temp 98.0 F 06/13/17 04:00 Pulse 93 06/13/17 12:16 Resp 24 06/13/17 12:00 BP 139/82 06/13/17 12:00 Pulse Ox 96 06/13/17 12:00 Intake & Output 06/12/17 06/13/17 06/13/17 18:59 06:59 18:59 Intake Total 652.89 650 60 Output Total 900 900 550 Balance -247.11 -250 -490 Weight 67 kg 66.5 kg Intake: IV 300 60 0.9@25mls/hr 300 60 Intake, IV Titration 178.89 350 Amount Cefepime 2 gm In Sodium 100 Chloride 0.9% 50 ml @ 100 mls/hr IVPB Q8H [facility] Rx#: [id number] Heparin Sodium,Porcine 25 178.89 ,000 unit In Sodium Chloride 0.9% 500 ml @ 12 UNITS/KG/HR 16.08 mls/hr IV .Q24H [facility] Rx#: [id number] Vancomycin 1,250 mg In 250 Sodium Chloride 0.9% 250 ml @ 125 mls/hr IVPB Q12H [facility] Rx#:[id number] Oral 474 Output: Urine 900 900 550 Other: Voiding Method Indwelling Catheter Indwelling Catheter Indwelling Catheter # Voids 200 1 - Labs CBC & Chem 7: 06/13/17 05:45 06/12/17 03:35 Labs: Abnormal Lab Results - Last 24 Hours (Table) 06/12/17 06/13/17 06/13/17 Range/Units 18:06 05:45 05:45 WBC 21.2 H (3.8-10.6) k/uL RBC 3.61 L (4.30-5.90) m/uL Hgb 10.8 L (13.0-17.5) gm/dL Hct 34.1 L (39.0-53.0) % Plt Count 485 H (150-450) k/uL Neutrophils # 18.2 H (1.3-7.7) k/uL APTT 47.6 H 30.5 H (22.0-30.0) sec Assessment and Plan Plan: This is a joint evaluation that was done along with the nurse practitioner. The events that led to the patient to the intensive care unit was noted. The patient became slightly more short of breath and he was placed on BiPAP for respiratory support. Currently is on a BiPAP pressure of 12/5 cm of water. He is much more comfortable and his breathing has stabilized and his pulse ox is around 97-98% and I am considering to put him back on nasal cannula. I reviewed his chest x-ray and there is extensive consolidation of the right lower lobe and there is also some limited cavitation the right lower lobe posterior segment area especially in the infrahilar area. I had another discussion with interventional radiology, Dr. Tin Santoyo and there is no sizable pocket of abscess that can be drained successfully in this patient. I was planning to do a bronchoscopy on this patient however based on this recent respiratory compromise I will postpone bronchoscopy as the patient may not be able to handle this procedure. He is 86 years old. He has a DNR/DNI CODE STATUS. The treatment will be essentially antibiotic treatment ,and if possible , will try to get him a sample for microbial diagnosis to guide antibiotic treatment. ID is on the case. We'll continue to follow. The patient be kept in ICU. He is still nothing by mouth. PEG tube insertion was also postponed for another 48 hours until the patient's overall history status is more stable.
--- NOTE | 2017-06-13 13:30 | P.GSCN ---
History of Present Illness Consult date: 06/13/17 Reason for Consult: Aspiration History of present illness: Patient with admission for shortness of breath. Was found to have a pulmonary abscess. He has a history of previous CVA. He had a prior PEG tube for aspiration risk. That was removed several years ago. We are asked now to see this patient for feeding tube placement. He was actually scheduled for PEG tube today but developed acute respiratory distress. It was placed on hold for that reason. 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 History of Any Multi-Drug Resistant Organisms: None Reported Past Surgical History: Back Surgery Additional Past Surgical History / Comment(s): 1991 lumbar laminectomy with fusion, 1996 AAA repair Past Anesthesia/Blood Transfusion Reactions: No Reported Reaction Past Psychological History: No Psychological Hx Reported Smoking Status: Former smoker Past Alcohol Use History: None Reported Past Drug Use History: None Reported - Past Family History Father Family Medical History: Myocardial Infarction (RI) Additional Family Medical History / Comment(s): Father of a RI in his 80's. Mother Family Medical History: Hypertension Additional Family Medical History / Comment(s): Mother in her 80's Medications and Allergies Home Medications Medication Instructions Recorded Confirmed Type Aspirin EC [Ecotrin Low Dose] 81 mg PO DAILY 06/08/17 06/08/17 History Atorvastatin [Lipitor] 20 mg PO HS 06/08/17 06/08/17 History Celecoxib [CeleBREX] 200 mg PO DAILY 06/08/17 06/08/17 History Cranberry Fruit Extract [Cranberry] 200 mg PO DAILY 06/08/17 06/08/17 History Ipratropium-Albuterol Nebulize 3 ml INHALATION RT-TID 06/08/17 06/08/17 History [Duoneb 0.5 mg-3 mg/3 ml Soln] Losartan [Cozaar] 25 mg PO DAILY 06/08/17 06/08/17 History Multivit-Min/FA/Lycopen/Lutein 1 tab PO DAILY 06/08/17 06/08/17 History [Centrum Silver Tablet] Nitroglycerin Extended Release 6.5 mg PO Q12H 06/08/17 06/08/17 History [Nitro-Bid] Vitamin D3 With Aloe 1 tab PO DAILY 06/08/17 06/08/17 History Vits A,C,E/Lutein/Minerals 1 tab PO DAILY 06/08/17 06/08/17 History [Ocuvite with Lutein Tablet] Allergies Allergy/AdvReac Type Severity Reaction Status Date / Time No Known Allergies Allergy Verified 06/08/17 09:47 Surgical - Exam Vital Signs Temp Pulse Resp BP Pulse Ox 97.8 F 101 H 26 H 137/57 86 L 06/08/17 09:28 06/08/17 09:28 06/08/17 09:28 06/08/17 09:28 06/08/17 09:28 Physical exam: General: Well-developed, well-nourished HEENT: Normocephalic, sclerae nonicteric Abdomen: Nontender, nondistended Extremities: No edema Neuro: Alert Results - Labs 06/13/17 05:45 06/12/17 03:35 Abnormal Lab Results - Last 24 Hours (Table) 06/12/17 06/13/17 06/13/17 Range/Units 18:06 05:45 05:45 WBC 21.2 H (3.8-10.6) k/uL RBC 3.61 L (4.30-5.90) m/uL Hgb 10.8 L (13.0-17.5) gm/dL Hct 34.1 L (39.0-53.0) % Plt Count 485 H (150-450) k/uL Neutrophils # 18.2 H (1.3-7.7) k/uL APTT 47.6 H 30.5 H (22.0-30.0) sec Assessment and Plan (1) Aspiration into airway Narrative/Plan: Will monitor the patient's respiratory status. Tentatively schedule for PEG tube placement in 48 hours. Current Visit: Yes Status: Acute Code(s): T17.908A - UNSP FB IN RESP TRACT, PART UNSP CAUSING OTH INJURY, INIT SNOMED Code(s): 246436185
--- NOTE | 2017-06-13 16:03 | P.PN ---
Progress Note - Text Progress Note Date: 06/13/17 DATE OF SERVICE: 06/13/2017 PRESENTING COMPLAINT: Fall, shortness of breath HISTORY OF PRESENT ILLNESS: 86-year-old male with right-sided hemiplegia presents after a fall sustained at home trying to use the urinal and increasing shortness of breath. INTERVAL HISTORY: 06/13/2017: Patient seen in follow-up, transferred to the ICU this morning due to increasing shortness of breath concerns for aspiration. On exam patient sitting up with his eyes closed on the BiPAP appears very comfortable. Alert to voice opens his eyes immediately recognizes me. Nods his head when asked if he feels good and if he is comfortable. and daughter at the bedside. Questions answered. Dr. Vance from general surgery to see the patient regarding PEG tube placement. Currently patient's nothing by mouth. Interventional radiology will not be placing a pigtail catheter, pulmonology considering the possibility of a bronchoscopy. 06/12/2017: Patient seen in follow-up no family at the bedside, patient sitting up in a chair just finished working with physical therapy. Aware of his surroundings able to recognize care staff appears more alert today not confused. No further episodes of chest pain evaluated by speech yesterday failed swallow evaluation. Her rhythm is atrial fibrillation rate controlled. Will need PEG tube for nutritional support. Remains nothing by mouth. Plans to place a pigtail catheter by interventional radiology, thoracic surgery to monitor once in place. 06/11/2017: Patient seen in follow-up, no family at the bedside, appears comfortable. Aware of his surroundings recognizes care staff does seem a bit confused today has taken his gown off. Patient was transferred to general medicine floor yesterday and had to be returned to 6 E. due to complaints of chest pain and tachycardia. Patient also developed urinary retention overnight for which Hemphill catheter was placed. Patient seen by speech, Patient made nothing by mouth due to failing the swallow evaluation.recommends modified barium swallow evaluation. Due to patient's chronic aspiration and development of lung abscesses, CT of the chest to be completed to determine if any can be drained per pulmonology and interventional radiology. 06/10/2017: Patient seen in follow-up, no family at the bedside, appears comfortable. Appears aware of his surroundings recognizes care staff and myself. Answers questions by nodding his head and trying to speak some. He tolerates his diet, cough noted no sputum production, remains on oxygen. Pulmonology suggests placement of pigtail catheter the right lung for drainage. 06/09/2017: Patient seen in follow-up, remains at the bedside, appears comfortable, appears aware of his surroundings, recognizes care staff, tolerating his diet, some concerns expressed by the that patient has a tendency to put too much in his mouth and there may be possibility of aspiration. Cough is improved, producing less sputum. Remains on oxygen. REVIEW OF SYSTEMS: Done for constitutional ,cardiovascular, GI, pulmonary with relevant findings as above. CURRENT MEDICATIONS DuoNeb, aspirin, Lipitor, cefepime 2 g IV piggyback, budesonide, Perforomist 20 g twice a day, heparin drip, Cozaar 25 mg by mouth daily, Mobic 7.5 mg by mouth daily, Flomax 0.4 mg by mouth at supper. Vancomycin 1250 mg IV piggyback , verapamil 40 mg by mouth 3 times a day PHYSICAL EXAM VITAL SIGNS: Temperature 98.0, pulse 94, respiratory rate 24, blood pressure 124/67, oxygen saturation 92% on the BiPAP. GENERAL APPEARANCE: Sitting up in the bed, not in distress. EYES: Pupils equal. Conjunctiva normal. NECK: JVD not raised. Mass not palpable. RESPIRATORY: Respiratory effort increased. Patient currently on the BiPAP Lungs diminished expiratory wheezing to auscultation. CARDIOVASCULAR: First and second sounds noted . No edema. ABDOMEN: Soft. Liver and spleen not palpable. No tenderness. No mass palpable. PSYCHIATRY: Able answer some simple straightforward questions by not and answers by nodding and trying to speak. Mood and affect normal. NEUROLOGICAL: Right-sided hemiplegia from previous stroke, right lower extremity atrophy, right arm contracted, has aphasia INVESTIGATIONS: White blood cell count 21.2, hemoglobin 10.8 Chest x-ray: Emphysema, right lower lobe pneumonia. ASSESSMENT: - right-sided severe multilobar pneumonia could be aspiration slow to respond -Acute hypoxic respiratory failure likely due to aspiration, placed on BiPAP -Paroxysmal atrial fibrillation, rate controlled -Chronic obstructive pulmonary disease. 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 -Hyperlipidemia. -Primary osteoarthritis. -Essential hypertension. -Benign prostatic hypertrophy. -moderate protein calorie malnutrition with BMI of 18.6, decreased albumin and reduced muscle mass. -Hyponatremia, suspect hypoosmolar, improving PLAN: Continue BiPAP therapy, patient is tolerating well. PEG tube placement canceled for now. Bronchoscopy to be considered once the patient's condition is stabilized. Plan of care discussed with the family and patient at bedside and they're in agreement. Patient continues to be DO NOT RESUSCITATE. We will follow closely. BEHAVIORAL PSYCHOLOGIST statement: Patient was seen and examined by nurse practitioner Vangie Willard and all elements of the case discussed with attending Dr. Torres
[2017-06-13] MEDS: TAMSULOSIN 0.4 MG CAP.ER.24H PO SCH (17:23)
[2017-06-13] MEDS: DEXTROSE 5%-0.9% NACL 1,000 ML IV SCH (21:17)
--- NOTE | 2017-06-13 21:19 | PN ---
PROGRESS NOTE DATE OF SERVICE: 06/13/2017 ATTENDING NOTE: Patient seen and examined by me. I discussed with my nurse practitioner, Anabelhany. Early this morning, patient became more short of breath, felt to have aspirated more. The patient has been n.p.o. Transferred to the ICU, was put on BiPAP. When I go to see the patient, he is actually a bit more stable. EXAMINATION: Increased respiratory rate, but fair air entry. The patient has a BiPAP in place, following commands actually smiled. The patient's and daughter at the bedside. Temperature 98, pulse 120, respirations 22, blood pressure noted. Chest x-ray shows pneumonic changes. ASSESSMENT: Right lung abscess, possibly further aspiration with acute hypoxic respiratory failure. Bronchoscopy has been postponed. Also pigtail catheter placed by Interventional Radiology and a percutaneous endoscopic gastrostomy already has been postponed. I did talk to the patient and at the bedside. It was clarified that his code status is DO NOT RESUSCITATE. Continue with current medication and treatment plan. Care was discussed the patient and in detail. MMODL / IJN: [id number] /
[2017-06-13] MEDS: ATORVASTATIN 20 MG TAB PO SCH (21:20)
[2017-06-13] MEDS ORDERED: cloNIDine 0.1 MG/24HR PATCH 1 PATCH PATCH TRANSDERM SCH (22:00)
[2017-06-14] MEDS: VANCOMYCIN 1,250 MG in SODIUM CHLORIDE 0.9% 250 ML IVPB SCH ×2 (01:09→13:45)
[2017-06-14 05:02] LABS: Anion Gap 5 mmol/L; Blood Urea Nitrogen 28 mg/dL (9-20); Calcium 8.6 mg/dL (8.4-10.2); Carbon Dioxide 25 mmol/L (22-30); Chloride 107 mmol/L (98-107); Glucose 92 mg/dL (74-99); Magnesium 2.3 mg/dL (1.6-2.3); Non-African American GFR(MDRD) >60 (>60 ml/min/1.73 sqM); Phosphorus 2.9 mg/dL (2.5-4.5); Potassium 3.6 mmol/L (3.5-5.1); Sodium 137 mmol/L (137-145)
[2017-06-14 05:16] LABS: Basophils # (A) 0.1 k/uL (0-0.2); Basophils % (A) 0 %; CH 30.2; CHCM 31.5; Eosinophils # (A) 0.3 k/uL (0-0.7); Eosinophils % (A) 2 %; HCT 35.9 % (39.0-53.0); HDW 2.71; HGB 11.3 gm/dL (13.0-17.5); Hypochromasia Slight; Luc # (Auto) 0.23; Luc % (Auto) 1; Lymphocytes # (A) 1.3 k/uL (1.0-4.8); Lymphocytes % (A) 7 %; MCH 30.3 pg (25.0-35.0); MCHC 31.5 g/dL (31.0-37.0); MCV 96.1 fL (80.0-100.0); Mean Platelet Volume 6.8; Monocytes # (A) 0.5 k/uL (0-1.0); Monocytes % (A) 2 %; Neutrophils # (A) 16.7 k/uL (1.3-7.7); Neutrophils % (A) 88 %; RBC 3.74 m/uL (4.30-5.90); RDW 13.4 % (11.5-15.5); WBC 19.1 k/uL (3.8-10.6); WBC (Perox) 19.44
[2017-06-14] MEDS ORDERED: Potassium Replacement Protocol 1 EACH MISC MISCELLANE PRN (05:37)
[2017-06-14] MEDS: CEFEPIME 2 GM in SODIUM CHLORIDE 0.9% 50 ML IVPB SCH ×4 (06:24→21:43)
[2017-06-14] MEDS: POTASSIUM CHLORIDE 10 MEQ, LIDOCAINE 2% INJ 10 MG in SODIUM CHLORIDE 0.9% 100 ML IV SCH ×2 (07:18→09:12)
[2017-06-14] MEDS: MELOXICAM 7.5 MG TAB PO SCH (07:44)
[2017-06-14] MEDS: LOSARTAN 25 MG TAB PO SCH (07:44)
[2017-06-14] MEDS: ASPIRIN 81 MG PO SCH (07:44)
[2017-06-14] MEDS: SODIUM CHLORIDE TAB 1 GM TAB PO SCH ×3 (07:44→21:16)
[2017-06-14] MEDS: VERAPAMIL 40 MG TAB PO SCH ×3 (07:44→21:16)
[2017-06-14] MEDS: FORMOTEROL FUMARATE 20 MCG/2 ML NEBU INHALATION SCH ×2 (08:00→19:15)
[2017-06-14] MEDS: IPRATROPIUM-ALBUTEROL 3 ML NEB INHALATION SCH ×4 (08:00→19:15)
[2017-06-14] MEDS: BUDESONIDE 1 MG/2 ML NEBU INHALATION SCH ×2 (08:00→19:15)
--- NOTE | 2017-06-14 08:52 | XR ---
EXAMINATION TYPE: XR chest 1V DATE OF EXAM: 06/14/2017 HISTORY: Shortness of breath. COMPARISON: 06/13/2017 TECHNIQUE: Single view of the chest is submitted. FINDINGS: Demonstrated are scattered senescent parenchymal change. Increasing right perihilar and right basilar infiltrate. Persistent patchy density left lower lobe. S mall effusions right greater than left. Right apical pleural-parenchymal opacity is stable. The heart is stable. Hilar and mediastinal structures are stable. Degenerative changes are seen of the dorsal spine. IMPRESSION: 1. Increasing right perihilar and right basilar infiltrate. Persistent patchy density left lower lob e. Small effusions right greater than left.
[2017-06-14] MEDS: MULTIVITAMINS, THERA 1 EACH TAB PO SCH (10:36)
--- NOTE | 2017-06-14 13:11 | P.PN ---
Subjective Progress Note Date: 06/14/17 Principal diagnosis: Malnutrition/aspiration Patient alert. No obvious shortness of breath presently. White blood cell count today is 19.1. Objective - Vital Signs Vital signs: Vital Signs Temp 98.2 F 06/14/17 12:00 Pulse 90 06/14/17 12:02 Resp 32 H 06/14/17 12:00 BP 172/74 06/14/17 12:00 Pulse Ox 97 06/14/17 12:00 Intake & Output 06/13/17 06/14/17 06/14/17 18:59 06:59 18:59 Intake Total 400 1145 425 Output Total 765 493 375 Balance -365 652 50 Weight 73.2 kg Intake: IV 100 1145 425 0.9@25mls/hr 100 45 Cefepime 2 gm In Sodium 100 50 Chloride 0.9% 50 ml @ 100 mls/hr IVPB Q8H [facility] Rx#: [id number] Dextrose 5%-0.9% NaCl 1, 750 375 000 ml @ 75 mls/hr IV . [id number] [facility] Rx#:[id number] Vancomycin 1,250 mg In 250 Sodium Chloride 0.9% 250 ml @ 125 mls/hr IVPB Q12H [facility] Rx#:[id number] Intake, IV Titration 300 Amount Cefepime 2 gm In Sodium 50 Chloride 0.9% 50 ml @ 100 mls/hr IVPB Q8H [facility] Rx#: [id number] Vancomycin 1,250 mg In 250 Sodium Chloride 0.9% 250 ml @ 125 mls/hr IVPB Q12H [facility] Rx#:[id number] Output: Urine 765 493 375 Other: Voiding Method Indwelling Catheter Indwelling Catheter Indwelling Catheter # Voids 1 - Exam Abdomen: Soft, nontender, nondistended - Labs CBC & Chem 7: 06/14/17 04:20 06/14/17 04:20 Labs: Abnormal Lab Results - Last 24 Hours (Table) 06/14/17 06/14/17 Range/Units 04:20 04:20 WBC 19.1 H (3.8-10.6) k/uL RBC 3.74 L (4.30-5.90) m/uL Hgb 11.3 L (13.0-17.5) gm/dL Hct 35.9 L (39.0-53.0) % Neutrophils # 16.7 H (1.3-7.7) k/uL BUN 28 H (9-20) mg/dL Assessment and Plan (1) Aspiration into airway Narrative/Plan: The patient's family have discussed PEG tube and tracheostomy placement with Dr. Gaffney. The family is unsure if they want to go to that degree of intervention at this time. They're continuing to discuss this amongst themselves. Tracheostomy would be for the management of his airway given the recurrent aspiration and weakened cough. They will continue to discuss this and notify me of their decision. Current Visit: Yes Status: Acute Code(s): T17.908A - UNSP FB IN RESP TRACT, PART UNSP CAUSING OTH INJURY, INIT SNOMED Code(s): 188574638
--- NOTE | 2017-06-14 14:07 | P.PN ---
Subjective Progress Note Date: 06/14/17 Principal diagnosis: Acute hypoxic respiratory failure secondary to right lung abscess of the superior segment of the right lower lobe and right lung base secondary to suspected aspiration. On 06/11/2017 I'm seeing this patient in follow-up. This patient failed the swallow evaluation. I talked to the swallow specialist and the patient is having significant amount of aspiration. The patient also has chronic aspiration he has developed a right lower lobe pneumonia and extensive abscess formation in the superior segment of the right lower lobe. I reviewed the CAT scan of the chest and there is multiple abscesses. Discussed the case with Dr. Natanael Santoyo from interventional radiology. We'll may consider doing a percutaneous drainage of one of these pocketed later stage for diagnostic purposes. The patient meanwhile is covered with broad-spectrum antibiotics and the patient is currently on a combination of cefepime, and vancomycin. The white cell count is elevated at 25.6. There is mild troponin leak noted with troponin levels of 0.1 0.8 respectively 2. The patient is still tachycardic with a heart rate of 120 and a blood pressure is 156/67. The patient is nothing by mouth for now. Consultation is being given for a PEG tube placement. The patient has suffered a previous CVA. The patient has expressive aphasia. On 06/12/2017 the patient is being seen in follow-up. The patient is still having difficulties with swallowing. He has a poor cough. As mentioned earlier he failed swallow and he aspirated and developed also a right lung abscess. A repeat CAT scan of the chest was done this morning without contrast that showed multiloculated right lower lobe pulmonary abscess, a complication of a previous aspiration. Underlying neoplasm is felt to be less likely. There is also some increase in the right-sided small pleural effusion which is felt to be reactive in nature. Based on the radiologist's evaluation, there is a concern of the potential bronchopleural fistula knowing that the right lower lobe segment courses into the abscess itself. There is also evidence of right hilar and mediastinal lymphadenopathy. A right apical aspirated nodule measuring 1.8 x 1.1 cm in size is probably a representation of right apical pleural scar rather than a neoplasm. The patient has background emphysema. The patient is still on broad-spectrum antibiotics. He is afebrile for now. He is less tachycardic compared to yesterday. His pulse oximetry 94% liters of oxygen by nasal cannula. I had a lengthy discussion with the family. They're open to this suggestion the PEG tube insertion for nutritional support. On 06/13/2017 patient has been transferred to the intensive care this morning, the team has been called for concern about patient's respiratory decompensation , desaturation, increased shortness of breath. When the patient was assessed by the rapid response team, patient was felt to be in fluid overload/flash pulmonary edema. He may have aspirated again. 40 mg of Lasix IV push was given and patient was placed on BiPAP ventilatory support. He diuresed about 700 mL of dilute urine, his oxygenation remained poor on BiPAP support, only 88 % on FiO2 of 60%. Patient's respiratory status remained marginal after the rapid response interventions and the decision was made to transfer the patient to the intensive care for further treatment. He was scheduled for PEG tube placement today but in view of his respiratory deterioration this was canceled. He is a status DO NOT RESUSCITATE, his family was notified of the transfer. At the time of my evaluation patient is awake, alert, he is aphasic, but able to understand verbal commands. His breathing is slightly improved and he is less dyspneic on BiPAP. He has been on antibiotics in the form of cefepime and vancomycin for his right lung abscess. Interventional radiology was consulted for a percutaneous pigtail catheter for the drainage of the lung abscess, however because of the loculation, the procedure was not thought to be possible. His white count is up to 21.2 today, he has been afebrile. From has been reviewed by Dr. Gaffney and right lower lobe pulmonary abscess was again seen. The patient was seen again today 06/14/2017 in follow-up in the intensive care unit. He is currently awake and alert in no acute distress. His chest x-ray continues to show evidence of cavitation and infiltration of the right lung base. He is continuing to maintain good O2 saturations in the high 90s on 2 L/ m per nasal cannula. He's been afebrile. Hemodynamically stable. White count 19.1, hemoglobin 11.3. Creatinine 0.70. Continued antibiotic coverage with cefepime and vancomycin. The patient remains nothing by mouth. The plan was for PEG tube insertion tomorrow. He may also benefit from tracheostomy tube placement. Objective - Vital Signs Vital signs: Vital Signs Temp 98.2 F 06/14/17 12:00 Pulse 88 06/14/17 13:00 Resp 28 H 06/14/17 13:00 BP 160/70 06/14/17 13:00 Pulse Ox 93 L 06/14/17 13:00 Intake & Output 06/13/17 06/14/17 06/14/17 18:59 06:59 18:59 Intake Total 400 1145 500 Output Total 765 493 425 Balance -365 652 75 Weight 73.2 kg Intake: IV 100 1145 500 0.9@25mls/hr 100 45 Cefepime 2 gm In Sodium 100 50 Chloride 0.9% 50 ml @ 100 mls/hr IVPB Q8H [facility] Rx#: [id number] Dextrose 5%-0.9% NaCl 1, 750 450 000 ml @ 75 mls/hr IV . [id number] [facility] Rx#:[id number] Vancomycin 1,250 mg In 250 Sodium Chloride 0.9% 250 ml @ 125 mls/hr IVPB Q12H [facility] Rx#:[id number] Intake, IV Titration 300 Amount Cefepime 2 gm In Sodium 50 Chloride 0.9% 50 ml @ 100 mls/hr IVPB Q8H [facility] Rx#: [id number] Vancomycin 1,250 mg In 250 Sodium Chloride 0.9% 250 ml @ 125 mls/hr IVPB Q12H [facility] Rx#:[id number] Output: Urine 765 493 425 Other: Voiding Method Indwelling Catheter Indwelling Catheter Indwelling Catheter # Voids 1 - Exam No acute distress, patient cannot communicate verbally as the patient has expressive aphasia. He seems to be alert and fully comprehend any discussion or conversation. HENT examination is grossly unremarkable. Mucous membranes are moist. No oral lesions. Neck supple. Full range of motion. No adenopathy thyromegaly or neck vein distention. Cardiovascular examination reveals regular rhythm rate. S1-S2 normal. No S3 or S4. No discernible murmur noted. Lungs reveal diminished breath sounds. Diminished breath sounds especially in the right lung base. Few crackles in the lung basilar areas. No wheezing. Abdomen soft bowel sounds are heard. No masses or tenderness. Extremities reveal weakness/paralysis on the right side. No cyanosis clubbing or significant edema. Skin is without rash or lesion. Neurologic examination is patient has expressive aphasia. A previous CVA. Weak swallow. Increased risk of aspiration. - Labs CBC & Chem 7: 06/14/17 04:20 06/14/17 04:20 Labs: Abnormal Lab Results - Last 24 Hours (Table) 06/14/17 06/14/17 Range/Units 04:20 04:20 WBC 19.1 H (3.8-10.6) k/uL RBC 3.74 L (4.30-5.90) m/uL Hgb 11.3 L (13.0-17.5) gm/dL Hct 35.9 L (39.0-53.0) % Neutrophils # 16.7 H (1.3-7.7) k/uL BUN 28 H (9-20) mg/dL Assessment and Plan Assessment: Assessment 1. Acute hypoxic respiratory failure secondary to aspiration, related to complication of previous CVA. Acute deterioration in respiratory status, requiring rapid response team intervention with IV diuretics and placement on BiPAP ventilatory support and transferred to the intensive care. 2 right lung abscess involving the superior segment of the right lower lobe and there is also some consolidation of the right lung base. This is likely secondary to aspiration. A follow-up CAT scan of the chest was done and showed persistent consolidation of the severe segment in the right lower lobe posterior segment. In addition there is a cavitating lung abscess within the posterior segment of the right lower lobe and reactive lymphadenopathy. The right lower bronchus may be going into the abscess itself and it may be worthwhile doing a bronchoscopic evaluation at the later stage to see there is any role for bronchoscopic aspiration of this lung abscess. 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 Gaffney. His chest x-ray and labs were reviewed. The patient has been slow to progress. The plan was for PEG tube insertion tomorrow based on the patient's continued ongoing aspiration secondary to previous CVA. The patient would also benefit from tracheostomy tube placement where we could easily suctioned the patient and for the fact he will probably continue to aspirate even despite PEG tube insertion. He has a very weak cough at best. He did have discussions with the and daughter who are at the bedside. They are somewhat reluctant to proceed with any procedures at this point. He remains a DO NOT RESUSCITATE/DO NOT INTUBATE CODE STATUS. They may choose to decline any further interventions. We will have ongoing discussions and let us know. In the interim we'll continue with full supportive care. He'll remain on his current antibiotics and bronchodilators. He remains on aspiration precautions. We'll keep him here in the intensive care unit another 24 hours. We'll continue to follow. I, the cosigning physician, have performed a history and physical examination on the patient. Lung sounds Crackles in the right posterior base. Few scattered rhonchi. Maintaining good O2 saturations in the 90s 2 L/m per nasal cannula. I have discussed the assessment and plan of care with my nurse practitioner, Antoinette Garay. I attest the above documented note as dictated by her.
[2017-06-14] MEDS: TAMSULOSIN 0.4 MG CAP.ER.24H PO SCH (14:33)
--- NOTE | 2017-06-14 15:12 | PN ---
PROGRESS NOTE DATE OF SERVICE: 06/14/2017. PRESENTING COMPLAINT: Short of breath. INTERVAL HISTORY: Patient admitted with aspiration pneumonia causing abscess. The patient has been in the ICU following a desaturation. The patient had received BiPAP. The patient has been n.p.o. The patient was due for a bronchoscopy and a PEG tube, but has been postponed. The patient did get 1 dose of Lasix yesterday with some improvement. The patient is currently on 4L of oxygen. Lying in bed, comfortable, smiling. REVIEW OF SYSTEMS: Really cannot be done because the patient is nonverbal. CURRENT MEDICATIONS: Reviewed that include: 1. IV vancomycin and. 2. IV cefepime. PHYSICAL EXAMINATION: Temperature 98.2 pulse 91, respirations 22, blood pressure 132/74, pulse ox 97% on 2L. GENERAL APPEARANCE: Lying in bed, comfortable, smiling. EYES: Pupils equal. Conjunctivae normal. NECK: JVD unable to assess. Mass not palpable. RESPIRATORY: Effort increased. LUNGS: Diminished breath sounds. CARDIOVASCULAR: First and second sounds normal. No edema. ABDOMEN: Soft, nontender. Liver and spleen not palpable. NEUROLOGICAL: Following commands. Flaccid on the right side. The patient is aphasic. INVESTIGATIONS: White count 19.1, hemoglobin 11.3, potassium 3.6. Chest x-ray shows increasing infiltrates on the right side. ASSESSMENT: 1. Right-sided multilobar pneumonia and abscess with air-fluid level slow to respond in view of recurrent aspiration. 2. Acute hypoxic respiratory failure likely with aspiration, intermittently on bi- level positive airway pressure. 3. Paroxysmal atrial fibrillation. 4. Chronic obstructive pulmonary disease. 5. 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 6. Hyperlipidemia. 7. Primary osteoarthritis. 8. Essential hypertension. 9. Benign prostatic hypertrophy. 10.Moderate protein-calorie malnutrition. 11.Hyponatremia, suspect hypoosmolar. PLAN: At this point, continue with antibiotics. Bronchoscopy and PEG tube have been postponed for now. No family at the bedside. Overall prognosis is guarded. Follow. MMODL / IJN: [id number] /
[2017-06-14] MEDS: DEXTROSE 5%-0.9% NACL 1,000 ML IV SCH (19:30)
[2017-06-14] MEDS: ATORVASTATIN 20 MG TAB PO SCH (20:37)
[2017-06-15] MEDS: DEXTROSE 5%-0.9% NACL 1,000 ML IV SCH ×2 (00:39→22:10)
[2017-06-15] MEDS: VANCOMYCIN 1,250 MG in SODIUM CHLORIDE 0.9% 250 ML IVPB SCH ×2 (00:39→13:19)
[2017-06-15 04:49] LABS: Basophils % (A) 0 %; CH 30.3; CHCM 32.1; Eosinophils # (A) 0.3 k/uL (0-0.7); Eosinophils % (A) 2 %; HCT 36.4 % (39.0-53.0); HDW 2.83; HGB 11.5 gm/dL (13.0-17.5); Hypochromasia Slight; Luc # (Auto) 0.24; Luc % (Auto) 2; Lymphocytes # (A) 1.3 k/uL (1.0-4.8); Lymphocytes % (A) 8 %; MCHC 31.7 g/dL (31.0-37.0); MCV 94.7 fL (80.0-100.0); Mean Platelet Volume 7.2; Monocytes # (A) 0.5 k/uL (0-1.0); Monocytes % (A) 3 %; Neutrophils # (A) 13.3 k/uL (1.3-7.7); Neutrophils % (A) 85 %; RBC 3.84 m/uL (4.30-5.90); RDW 13.7 % (11.5-15.5); WBC 15.7 k/uL (3.8-10.6); WBC (Perox) 15.86
[2017-06-15 05:06] LABS: Blood Urea Nitrogen 21 mg/dL (9-20); Calcium 8.5 mg/dL (8.4-10.2); Carbon Dioxide 23 mmol/L (22-30); Chloride 110 mmol/L (98-107); Glucose 102 mg/dL (74-99); Magnesium 2.3 mg/dL (1.6-2.3); Non-African American GFR(MDRD) >60 (>60 ml/min/1.73 sqM); Phosphorus 2.6 mg/dL (2.5-4.5)
[2017-06-15 05:26] LABS: Potassium 3.4 mmol/L (3.5-5.1)
[2017-06-15 05:27] LABS: Anion Gap 5 mmol/L; Sodium 138 mmol/L (137-145)
[2017-06-15] MEDS ORDERED: Potassium Replacement Protocol 1 EACH MISC MISCELLANE PRN (05:45)
[2017-06-15] MEDS ORDERED: POTASSIUM CHLORIDE 10 MEQ, LIDOCAINE 2% INJ 10 MG in SODIUM CHLORIDE 0.9% 100 ML IV SCH (06:00)
[2017-06-15] MEDS: CEFEPIME 2 GM in SODIUM CHLORIDE 0.9% 50 ML IVPB SCH ×3 (06:16→22:09)
[2017-06-15] MEDS: FORMOTEROL FUMARATE 20 MCG/2 ML NEBU INHALATION SCH ×2 (07:28→20:38)
[2017-06-15] MEDS: BUDESONIDE 1 MG/2 ML NEBU INHALATION SCH ×2 (07:28→20:38)
[2017-06-15] MEDS: IPRATROPIUM-ALBUTEROL 3 ML NEB INHALATION SCH ×4 (07:28→20:38)
[2017-06-15] MEDS: LOSARTAN 25 MG TAB PO SCH (08:28)
[2017-06-15] MEDS: SODIUM CHLORIDE TAB 1 GM TAB PO SCH ×3 (08:28→21:14)
[2017-06-15] MEDS: MELOXICAM 7.5 MG TAB PO SCH (08:29)
[2017-06-15] MEDS: ASPIRIN 81 MG PO SCH (08:29)
[2017-06-15] MEDS: VERAPAMIL 40 MG TAB PO SCH ×3 (08:29→21:14)
--- NOTE | 2017-06-15 09:46 | P.PN ---
<Melody Hebert M - Last Filed: 06/15/17 09:37> Subjective Progress Note Date: 06/15/17 Principal diagnosis: Acute hypoxic respiratory failure due to right lung abscess of the superior segment of the right lower lobe and right lung base secondary to aspiration On 06/11/2017 I'm seeing this patient in follow-up. This patient failed the swallow evaluation. I talked to the swallow specialist and the patient is having significant amount of aspiration. The patient also has chronic aspiration he has developed a right lower lobe pneumonia and extensive abscess formation in the superior segment of the right lower lobe. I reviewed the CAT scan of the chest and there is multiple abscesses. Discussed the case with Dr. Natanael Santoyo from interventional radiology. We'll may consider doing a percutaneous drainage of one of these pocketed later stage for diagnostic purposes. The patient meanwhile is covered with broad-spectrum antibiotics and the patient is currently on a combination of cefepime, and vancomycin. The white cell count is elevated at 25.6. There is mild troponin leak noted with troponin levels of 0.1 0.8 respectively 2. The patient is still tachycardic with a heart rate of 120 and a blood pressure is 156/67. The patient is nothing by mouth for now. Consultation is being given for a PEG tube placement. The patient has suffered a previous CVA. The patient has expressive aphasia. On 06/12/2017 the patient is being seen in follow-up. The patient is still having difficulties with swallowing. He has a poor cough. As mentioned earlier he failed swallow and he aspirated and developed also a right lung abscess. A repeat CAT scan of the chest was done this morning without contrast that showed multiloculated right lower lobe pulmonary abscess, a complication of a previous aspiration. Underlying neoplasm is felt to be less likely. There is also some increase in the right-sided small pleural effusion which is felt to be reactive in nature. Based on the radiologist's evaluation, there is a concern of the potential bronchopleural fistula knowing that the right lower lobe segment courses into the abscess itself. There is also evidence of right hilar and mediastinal lymphadenopathy. A right apical aspirated nodule measuring 1.8 x 1.1 cm in size is probably a representation of right apical pleural scar rather than a neoplasm. The patient has background emphysema. The patient is still on broad-spectrum antibiotics. He is afebrile for now. He is less tachycardic compared to yesterday. His pulse oximetry 94% liters of oxygen by nasal cannula. I had a lengthy discussion with the family. They're open to this suggestion the PEG tube insertion for nutritional support. On 06/13/2017 patient has been transferred to the intensive care this morning, the team has been called for concern about patient's respiratory decompensation , desaturation, increased shortness of breath. When the patient was assessed by the rapid response team, patient was felt to be in fluid overload/flash pulmonary edema. He may have aspirated again. 40 mg of Lasix IV push was given and patient was placed on BiPAP ventilatory support. He diuresed about 700 mL of dilute urine, his oxygenation remained poor on BiPAP support, only 88 % on FiO2 of 60%. Patient's respiratory status remained marginal after the rapid response interventions and the decision was made to transfer the patient to the intensive care for further treatment. He was scheduled for PEG tube placement today but in view of his respiratory deterioration this was canceled. He is a status DO NOT RESUSCITATE, his family was notified of the transfer. At the time of my evaluation patient is awake, alert, he is aphasic, but able to understand verbal commands. His breathing is slightly improved and he is less dyspneic on BiPAP. He has been on antibiotics in the form of cefepime and vancomycin for his right lung abscess. Interventional radiology was consulted for a percutaneous pigtail catheter for the drainage of the lung abscess, however because of the loculation, the procedure was not thought to be possible. His white count is up to 21.2 today, he has been afebrile. From has been reviewed by Dr. Gaffney and right lower lobe pulmonary abscess was again seen. The patient was seen again today 06/14/2017 in follow-up in the intensive care unit. He is currently awake and alert in no acute distress. His chest x-ray continues to show evidence of cavitation and infiltration of the right lung base. He is continuing to maintain good O2 saturations in the high 90s on 2 L/ m per nasal cannula. He's been afebrile. Hemodynamically stable. White count 19.1, hemoglobin 11.3. Creatinine 0.70. Continued antibiotic coverage with cefepime and vancomycin. The patient remains nothing by mouth. The plan was for PEG tube insertion tomorrow. He may also benefit from tracheostomy tube placement. On 06/15/2017 patient seen in follow-up in the intensive care unit. He is lethargic, resting in bed in no apparent distress. He has been switched from BiPAP to 2 L per nasal cannula with sats between 89-92%. Yesterday an extensive discussion was held the patient's family regarding patient's condition and poor prognosis in view of patient's multiple comorbidities and overall decreased functional status, impaired swallow due to his past history of strokes and ongoing aspiration and recurrent lung infections. Patient had been status DO NOT RESUSCITATE. Patient's family decided to proceed with hospice enrollment. Objective - Vital Signs Vital signs: Vital Signs Temp 97.9 F 06/15/17 04:00 Pulse 92 06/15/17 09:00 Resp 26 H 06/15/17 09:00 BP 176/77 06/15/17 09:00 Pulse Ox 92 L 06/15/17 09:00 Intake & Output 06/14/17 06/15/17 06/15/17 18:59 06:59 18:59 Intake Total 875 1125 200 Output Total 670 925 390 Balance 205 200 -190 Weight 79 kg Intake: IV 875 1125 200 Cefepime 2 gm In Sodium 50 100 50 Chloride 0.9% 50 ml @ 100 mls/hr IVPB Q8H [facility] Rx#: [id number] Dextrose 5%-0.9% NaCl 1, 825 900 150 000 ml @ 75 mls/hr IV . [id number] [facility] Rx#:[id number] Vancomycin 1,250 mg In 125 Sodium Chloride 0.9% 250 ml @ 125 mls/hr IVPB Q12H [facility] Rx#:[id number] Output: Urine 670 925 390 Other: Voiding Method Indwelling Catheter Indwelling Catheter # Voids 1 - Exam No acute distress, patient cannot communicate verbally as the patient has expressive aphasia. Lethargic, currently on 2 L per nasal cannula HENT examination is grossly unremarkable. Mucous membranes are moist. No oral lesions. Neck supple. Full range of motion. No adenopathy thyromegaly or neck vein distention. Cardiovascular examination reveals regular rhythm rate. S1-S2 normal. No S3 or S4. No discernible murmur noted. Lungs reveal diminished breath sounds. Diminished breath sounds especially in the right lung base. Few crackles in the lung basilar areas. No wheezing. Abdomen soft bowel sounds are heard. No masses or tenderness. Extremities reveal weakness/paralysis on the right side. No cyanosis clubbing or significant edema. Skin is without rash or lesion. Neurologic examination is patient has expressive aphasia. A previous CVA. Weak swallow. Increased risk of aspiration. - Labs CBC & Chem 7: 06/15/17 04:11 06/15/17 04:11 Labs: Abnormal Lab Results - Last 24 Hours (Table) 06/15/17 06/15/17 Range/Units 04:11 04:11 WBC 15.7 H (3.8-10.6) k/uL RBC 3.84 L (4.30-5.90) m/uL Hgb 11.5 L (13.0-17.5) gm/dL Hct 36.4 L (39.0-53.0) % Neutrophils # 13.3 H (1.3-7.7) k/uL Potassium 3.4 L (3.5-5.1) mmol/L Chloride 110 H (98-107) mmol/L BUN 21 H (9-20) mg/dL Creatinine 0.60 L (0.66-1.25) mg/dL Glucose 102 H (74-99) mg/dL Assessment and Plan Plan: Assessment 1. Acute hypoxic respiratory failure secondary to aspiration, related to complication of previous CVA. Acute deterioration in respiratory status, patient had been on BiPAP, which has been switched to 2 L per nasal cannula. Patient's family decided to enroll patient in hospice and proceed with comfort care at this point. 2 right lung abscess involving the superior segment of the right lower lobe and there is also some consolidation of the right lung base. This is likely secondary to aspiration. A follow-up CAT scan of the chest was done and showed persistent consolidation of the severe segment in the right lower lobe posterior segment. In addition there is a cavitating lung abscess within the posterior segment of the right lower lobe and reactive lymphadenopathy. The right lower bronchus may be going into the abscess itself and it may be worthwhile doing a bronchoscopic evaluation at the later stage to see there is any role for bronchoscopic aspiration of this lung abscess. 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 Gaffney spoke extensively to the patient and his family regarding his condition and poor poor functional baseline status and multiple comorbidities, impaired swallow, recurrent aspiration, and recurrent lung infections. Patient and his family has decided to proceed with enrollment in hospice and proceed with comfort care measures at this point. I performed a history & physical examination of the patient and discussed their management with my nurse practitioner, Melody Hebert. I reviewed the nurse practitioner's note and agree with the documented findings and plan of care. Lung sounds are diminished, with bibasilar crackles.. The findings and the impression was discussed with the patient. I attest to the documentation by the nurse practitioner. Time with Patient: Greater than 30 <Fiordaliza Gfafney - Last Filed: 06/15/17 10:19> Objective - Vital Signs Vital signs: Vital Signs Temp 97.9 F 06/15/17 04:00 Pulse 90 06/15/17 10:00 Resp 27 H 06/15/17 10:00 BP 176/77 06/15/17 10:00 Pulse Ox 92 L 06/15/17 10:00 Intake & Output 06/14/17 06/15/17 06/15/17 18:59 06:59 18:59 Intake Total 875 1125 275 Output Total 670 925 515 Balance 205 200 -240 Weight 79 kg 79 kg Intake: IV 875 1125 275 Cefepime 2 gm In Sodium 50 100 50 Chloride 0.9% 50 ml @ 100 mls/hr IVPB Q8H [facility] Rx#: [id number] Dextrose 5%-0.9% NaCl 1, 825 900 225 000 ml @ 75 mls/hr IV . [id number] [facility] Rx#:[id number] Vancomycin 1,250 mg In 125 Sodium Chloride 0.9% 250 ml @ 125 mls/hr IVPB Q12H [facility] Rx#:[id number] Output: Urine 670 925 515 Other: Voiding Method Indwelling Catheter Indwelling Catheter Indwelling Catheter # Voids 1 - Labs CBC & Chem 7: 06/15/17 04:11 06/15/17 04:11 Labs: Abnormal Lab Results - Last 24 Hours (Table) 06/15/17 06/15/17 Range/Units 04:11 04:11 WBC 15.7 H (3.8-10.6) k/uL RBC 3.84 L (4.30-5.90) m/uL Hgb 11.5 L (13.0-17.5) gm/dL Hct 36.4 L (39.0-53.0) % Neutrophils # 13.3 H (1.3-7.7) k/uL Potassium 3.4 L (3.5-5.1) mmol/L Chloride 110 H (98-107) mmol/L BUN 21 H (9-20) mg/dL Creatinine 0.60 L (0.66-1.25) mg/dL Glucose 102 H (74-99) mg/dL Assessment and Plan Plan: The patient was seen in the joint evaluation along with nurse practitioner. I tested information mentioned above. Atelectatic discussion with the family along with general surgeon. Family opted to proceed with comfort care measures and based on that no PEG tube or tracheostomy tube will be inserted. The patient will be removed to a medical floor and hospice is to meet with them this afternoon.
[2017-06-15] MEDS ORDERED: VANCOMYCIN TROUGH DUE 1 EACH MISC MISCELLANE ONE (11:00)
[2017-06-15 11:02] VITALS: BMI 23.6
[2017-06-15] MEDS: MULTIVITAMINS, THERA 1 EACH TAB PO SCH (11:58)
--- NOTE | 2017-06-15 17:27 | PN ---
PROGRESS NOTE DATE OF SERVICE: 06/15/17. PRESENTING COMPLAINT: Short of breath. INTERVAL HISTORY: This patient presented with aspiration pneumonia and abscess. Has been getting IV antibiotics. Was in the ICU, received BiPAP, currently on 4 L of oxygen. The patient remains n.p.o. The patient is nonverbal. REVIEW OF SYSTEMS: Cannot be done. Patient nonverbal. CURRENT MEDICATIONS: Reviewed that include IV vancomycin. PHYSICAL EXAMINATION: Temperature 97.2, pulse 87, respiratory 26, blood pressure 135/68, pulse 92% on 2L. GENERAL APPEARANCE: Lying in bed, awake, following commands. EYES: Pupils equal. Conjunctivae are normal. NECK: JVD unable to assess. Mass not palpable. RESPIRATORY: Effort increased. Lungs decreased breath sounds. CARDIOVASCULAR: 1st and 2nd sounds normal. No edema. ABDOMEN: Soft, nontender. Liver and spleen not palpable. NEUROLOGICAL: Following commands, flaccid on the right arm and leg. The patient is aphasic. INVESTIGATIONS: White count 15.7, potassium 3.4, BUN 21, creatinine 0.60. ASSESSMENT: 1. Right-sided multiple lobe pneumonia and abscess with air-fluid levels from recurrent aspiration. 2. Acute hypoxic respiratory failure, likely aspiration. Had been on BiPAP, currently on nasal cannula. 3. Paroxysmal atrial fibrillation. 4. Chronic obstructive pulmonary disease. 5. 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 6. Hyperlipidemia. 7. Primary osteoarthritis. 8. Essential hypertension. 9. Benign prostatic hypertrophy. 10.Moderate protein calorie malnutrition. 11.Hyponatremia, suspect hypoosmolar. PLAN: I had a lengthy talk with the patient's and the granddaughter. The patient's does not want the PEG. She says this was not the patient's wishes. The son also understands that the patient will not be able to take food by mouth and will proceed to look into hospice options. I did speak to Dr. Gaffney. Also Dr. Vance has gone and canceled PEG tube now. At this point we will continue the antibiotics and look at what options we have available here. Total time spent today was about 45 minutes including 30 minutes of discussion. MMODL / IJN: [id number] /
[2017-06-15] MEDS: ATORVASTATIN 20 MG TAB PO SCH (21:13)
[2017-06-15] MEDS: TAMSULOSIN 0.4 MG CAP.ER.24H PO SCH (21:13)
[2017-06-16] MEDS: VANCOMYCIN 1,250 MG in SODIUM CHLORIDE 0.9% 250 ML IVPB SCH ×3 (00:15→23:08)
[2017-06-16] MEDS: DEXTROSE 5%-0.9% NACL 1,000 ML IV SCH ×2 (04:43→17:05)
[2017-06-16] MEDS: CEFEPIME 2 GM in SODIUM CHLORIDE 0.9% 50 ML IVPB SCH ×3 (05:46→22:07)
[2017-06-16 07:31] LABS: Basophils # (A) 0.1 k/uL (0-0.2); Basophils % (A) 0 %; CH 30.3; CHCM 32.5; Eosinophils # (A) 0.3 k/uL (0-0.7); Eosinophils % (A) 2 %; HCT 32.6 % (39.0-53.0); HDW 2.93; HGB 10.6 gm/dL (13.0-17.5); Hypochromasia Slight; Luc # (Auto) 0.21; Luc % (Auto) 2; Lymphocytes # (A) 1.4 k/uL (1.0-4.8); Lymphocytes % (A) 10 %; MCH 30.3 pg (25.0-35.0); MCHC 32.4 g/dL (31.0-37.0); MCV 93.6 fL (80.0-100.0); Mean Platelet Volume 7.2; Monocytes # (A) 0.5 k/uL (0-1.0); Monocytes % (A) 4 %; Neutrophils # (A) 11.5 k/uL (1.3-7.7); Neutrophils % (A) 82 %; RBC 3.49 m/uL (4.30-5.90); RDW 13.8 % (11.5-15.5); WBC (Perox) 14.29
[2017-06-16 07:46] LABS: Anion Gap 3 mmol/L; Blood Urea Nitrogen 18 mg/dL (9-20); Calcium 8.4 mg/dL (8.4-10.2); Carbon Dioxide 26 mmol/L (22-30); Chloride 111 mmol/L (98-107); Glucose 95 mg/dL (74-99); Magnesium 2.1 mg/dL (1.6-2.3); Non-African American GFR(MDRD) >60 (>60 ml/min/1.73 sqM); Phosphorus 2.5 mg/dL (2.5-4.5); Potassium 3.2 mmol/L (3.5-5.1); Sodium 140 mmol/L (137-145)
[2017-06-16] MEDS: LOSARTAN 25 MG TAB PO SCH ×3 (08:44→08:57)
[2017-06-16] MEDS: SODIUM CHLORIDE TAB 1 GM TAB PO SCH ×5 (08:44→19:24)
[2017-06-16] MEDS: ASPIRIN 81 MG PO SCH ×3 (08:44→08:57)
[2017-06-16] MEDS: MELOXICAM 7.5 MG TAB PO SCH ×3 (08:44→08:57)
[2017-06-16] MEDS: VERAPAMIL 40 MG TAB PO SCH ×4 (08:45→19:24)
[2017-06-16] MEDS: MULTIVITAMINS, THERA 1 EACH TAB PO SCH (08:57)
[2017-06-16] MEDS: BUDESONIDE 1 MG/2 ML NEBU INHALATION SCH ×2 (10:34→19:00)
[2017-06-16] MEDS: FORMOTEROL FUMARATE 20 MCG/2 ML NEBU INHALATION SCH ×2 (10:34→19:00)
[2017-06-16] MEDS: IPRATROPIUM-ALBUTEROL 3 ML NEB INHALATION SCH ×4 (10:35→19:00)
[2017-06-16] MEDS: TAMSULOSIN 0.4 MG CAP.ER.24H PO SCH (19:23)
[2017-06-16] MEDS: ATORVASTATIN 20 MG TAB PO SCH (19:24)
--- NOTE | 2017-06-16 22:08 | PN ---
PROGRESS NOTE DATE OF SERVICE: 06/16/2017. PRESENTING COMPLAINT: Short of breath. INTERVAL HISTORY: This is a patient with right dense stroke, aphasia, presented with aspiration pneumonia and lung abscess. Family does not wish PEG tube per his wishes. The patient is not a candidate for oral intake. He is resting in bed. The patient's , daughter, and granddaughter are present. REVIEW OF SYSTEMS: Cannot be done, patient is nonverbal. CURRENT MEDICATIONS: Include IV vancomycin and cefepime. PHYSICAL EXAMINATION: Temperature 98, pulse 84, respirations 20, blood pressure 140/62, pulse ox 94% on 2 L. GENERAL: Lying in bed, awake, follows commands. HEENT: Pupils equal. Conjunctivae normal. NECK: JVD unable to assess. Mass not palpable. RESPIRATORY: Effort increased. Lungs with decreased breath sounds. CARDIOVASCULAR: 1st and 2nd heart sounds. No edema. ABDOMEN: Soft, nontender. Liver and spleen not palpable. NEUROLOGICAL: Flaccid right arm and leg. The patient is aphasic. INVESTIGATIONS: White count 14, hemoglobin 10.6, potassium 3.2. ASSESSMENT: 1. Right-sided multiple septate pneumonia and abscess and air fluid level probably from aspiration. Clinically slow to respond. 2. Acute hypoxic respiratory failure, likely aspiration. Had earlier been on BiPAP, currently on nasal cannula. 3. Paroxysmal atrial fibrillation. 4. Chronic obstructive pulmonary disease. 5. 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 6. Hyperlipidemia. 7. Primary osteoarthritis. 8. Essential hypertension. 9. Benign prostatic hypertrophy. 10.Moderate protein calorie malnutrition. 11.Hyponatremia, suspect hypoosmolar. PLAN: Yet again, lengthy discussion with patient, , daughter. They did not wish to have any PEG tube and they do understand the patient is a high risk of aspiration in respect of the modified barium swallow results. They are okay to look into hospice for that. They are going to speak to the adoption social worker and are looking at different options about taking the patient home, etc. MMODL / IJN: [id number] /
[2017-06-17] MEDS: CEFEPIME 2 GM in SODIUM CHLORIDE 0.9% 50 ML IVPB SCH ×3 (05:20→21:29)
[2017-06-17] MEDS: DEXTROSE 5%-0.9% NACL 1,000 ML IV SCH (05:20)
[2017-06-17 07:44] LABS: Basophils # (A) 0.1 k/uL (0-0.2); Basophils % (A) 1 %; CH 29.8; CHCM 30.9; Eosinophils # (A) 0.3 k/uL (0-0.7); Eosinophils % (A) 2 %; HCT 35.1 % (39.0-53.0); HDW 2.65; HGB 10.8 gm/dL (13.0-17.5); Hypochromasia Moderate; Luc # (Auto) 0.18; Luc % (Auto) 1; Lymphocytes # (A) 1.4 k/uL (1.0-4.8); Lymphocytes % (A) 9 %; MCH 29.8 pg (25.0-35.0); MCHC 30.7 g/dL (31.0-37.0); MCV 96.9 fL (80.0-100.0); Mean Platelet Volume 7.4; Monocytes # (A) 0.4 k/uL (0-1.0); Monocytes % (A) 2 %; Neutrophils # (A) 13.6 k/uL (1.3-7.7); Neutrophils % (A) 85 %; RBC 3.62 m/uL (4.30-5.90); RDW 15.2 % (11.5-15.5); WBC 15.9 k/uL (3.8-10.6)
[2017-06-17 07:49] LABS: Anion Gap 5 mmol/L; Blood Urea Nitrogen 17 mg/dL (9-20); Calcium 8.3 mg/dL (8.4-10.2); Carbon Dioxide 23 mmol/L (22-30); Chloride 110 mmol/L (98-107); Glucose 92 mg/dL (74-99); Non-African American GFR(MDRD) >60 (>60 ml/min/1.73 sqM); Potassium 3.1 mmol/L (3.5-5.1); Sodium 138 mmol/L (137-145)
[2017-06-17] MEDS: BUDESONIDE 1 MG/2 ML NEBU INHALATION SCH ×2 (08:24→19:26)
[2017-06-17] MEDS: FORMOTEROL FUMARATE 20 MCG/2 ML NEBU INHALATION SCH ×2 (08:24→19:26)
[2017-06-17] MEDS: IPRATROPIUM-ALBUTEROL 3 ML NEB INHALATION SCH ×4 (08:24→19:26)
[2017-06-17 08:28] VITALS: RESP 18
[2017-06-17] MEDS: LOSARTAN 25 MG TAB PO SCH (08:31)
[2017-06-17] MEDS: SODIUM CHLORIDE TAB 1 GM TAB PO SCH ×2 (08:31→16:07)
[2017-06-17] MEDS: ASPIRIN 81 MG PO SCH (08:31)
[2017-06-17] MEDS: MELOXICAM 7.5 MG TAB PO SCH (08:31)
[2017-06-17] MEDS: VERAPAMIL 40 MG TAB PO SCH ×2 (08:31→16:07)
[2017-06-17] MEDS: VANCOMYCIN 1,250 MG in SODIUM CHLORIDE 0.9% 250 ML IVPB SCH ×2 (12:03→23:34)
[2017-06-17] MEDS: MULTIVITAMINS, THERA 1 EACH TAB PO SCH (12:05)
[2017-06-17] MEDS: POTASSIUM CHLORIDE 10 MEQ, LIDOCAINE 2% INJ 10 MG in SODIUM CHLORIDE 0.9% 100 ML IV SCH ×2 (14:55→16:05)
[2017-06-17] MEDS: TAMSULOSIN 0.4 MG CAP.ER.24H PO SCH (17:41)
--- NOTE | 2017-06-17 20:05 | PN ---
PROGRESS NOTE DATE OF SERVICE: June 17, 2017. PRESENTING COMPLAINT: Short of breath. INTERVAL HISTORY: This is a patient with right dense stroke, chronic aphasia, chronic presented with severe aspiration pneumonia and lung abscess. Family does not want PEG tube and understands the patient is a very high risk for aspiration. [facility] is supposed to come in today to talk to them about the hospice house in [place]. Family is getting to talk to them. The patient otherwise sitting up comfortable, awake. Review of systems cannot be done, patient nonverbal. MEDICATIONS: Current medications include antibiotics. PHYSICAL EXAMINATION: Temperature 97, pulse 79, respiratory 18, blood pressure 150/72, pulse ox 93% on room air. General appearance lying in bed, awake, follows commands, smiling. Eyes pupils equal, conjunctivae normal. Neck JVD not raised. Mass not palpable. Respiratory effort increased. Lungs decreased breath sounds. Cardiovascular first and sounds normal. No edema. ABDOMEN: Soft, nontender. Liver and spleen not palpable. Neurological flaccid right arm and leg, aphasic. Follows commands. ASSESSMENT: 1. Right-sided multiple septated pneumonia and abscess with air-fluid levels from aspiration. 2. Acute hypoxic respiratory failure, likely aspiration. Had only been on BiPAP, currently on nasal cannula. 3. Paroxysmal atrial fibrillation. 4. Chronic obstructive pulmonary disease. 5. 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 6. Hyperlipidemia. 7. Primary osteoarthritis. 8. Essential hypertension. 9. Benign prostatic hypertrophy. 10.Moderate protein calorie malnutrition. 11.Hyponatremia, suspect hypoosmolar, now corrected. PLAN: Oral medications will be held. Family looking into the hospice house. Prognosis is guarded. We will go ahead and stop the labs. MMODL / IJN: [id number] /
[2017-06-17 23:39] VITALS: TEMP 97.6
[2017-06-18] MEDS: CEFEPIME 2 GM in SODIUM CHLORIDE 0.9% 50 ML IVPB SCH ×2 (05:10→15:11)
[2017-06-18 08:10] VITALS: BP 131/60
[2017-06-18] MEDS: IPRATROPIUM-ALBUTEROL 3 ML NEB INHALATION SCH ×2 (08:17→12:15)
[2017-06-18] MEDS: BUDESONIDE 1 MG/2 ML NEBU INHALATION SCH (08:17)
[2017-06-18] MEDS: FORMOTEROL FUMARATE 20 MCG/2 ML NEBU INHALATION SCH (08:17)
[2017-06-18] MEDS: VANCOMYCIN 1,250 MG in SODIUM CHLORIDE 0.9% 250 ML IVPB SCH (12:01)
[2017-06-18 12:29] VITALS: PULSE 80
--- NOTE | 2017-06-18 20:58 | P.PN ---
Subjective Progress Note Date: 06/18/17 Principal diagnosis: Lung abscess 86-year-old male presents to hospital with concerns to pneumonia. He has a known history of stroke and does have some difficulties with swallowing. He also has significant periodontal disease. He has been seen by pulmonary medicine as well as cardiothoracic surgery because of the onset of a significant lung abscess. It appears there has been a request for percutaneous drainage from interventional radiology. At this time this 86-year-old gentleman is able to communicate with the forward and with response to yes and no questions. He relates that he is quite comfortable and does not have any significant discomfort at this time. His shortness of breath is improved. Fevers have improved ,failed his swallow study Patient was going to have a PEG tube placed. However family has now decided that with his ongoing declining status that this is not ideal. They have instead contacted hospice. Objective - Vital Signs Vital signs: Vital Signs Temp 97.6 F 06/18/17 08:10 Pulse 80 06/18/17 12:28 Resp 18 06/18/17 08:10 BP 131/60 06/18/17 08:10 Pulse Ox 95 06/18/17 08:20 Intake & Output 06/18/17 06/18/17 06/19/17 06:59 18:59 06:59 Intake Total 480 Output Total 800 Balance -320 Weight 79 kg Intake: IV 480 Cefepime 2 gm In Sodium 150 Chloride 0.9% 50 ml @ 100 mls/hr IVPB Q8H [facility] Rx#: [id number] Dextrose 5%-0.9% NaCl 1, 80 000 ml @ 75 mls/hr IV . [id number] [facility] Rx#:[id number] Vancomycin 1,250 mg In 250 Sodium Chloride 0.9% 250 ml @ 125 mls/hr IVPB Q12H [facility] Rx#:[id number] Output: Urine 800 Straight 800 Other: Voiding Method Indwelling Catheter Indwelling Catheter - Exam 86-year-old male who is comfortable. He has the obvious right sided weakness. He however does have the ability to utilize his mouth and he does not drool HEENT: Anicteric conjunctiva are pink and moist nasal mucosa grossly intact without significant lesions, there is no thrush. Oral mucosa somewhat dry Neck: The neck is supple without significant lymphadenopathy or thyromegaly. Lungs: There are symmetrical air entry. On the right posterior chest is evidence of bronchial sounds as well as dullness some expiratory wheezes are heard Heart: Regular rate and rhythm with an audible S1-S2, no S3 no S4. There is no significant murmur click or rub, PMI was nondisplaced. Abdomen: Positive bowel sounds soft and nontender without palpable masses or organomegaly. There was no guarding or rebound. Extremities: The upper extremities have excellent pulses they are symmetric, no significant petechiae or telangiectasia. No splinter hemorrhages were noted. The lower extremities are free from significant edema. The peripheral pulses were 2+ and symmetric. Neuro: Patient is pleasant and cooperative. He has the dense right hemiparesis with difficulty with speech. - Labs CBC & Chem 7: 06/17/17 06:53 06/17/17 17:59 Labs: Laboratory Results WBC 15.9 k/uL (3.8-10.6) H 06/17/17 06:53 RBC 3.62 m/uL (4.30-5.90) L 06/17/17 06:53 Hgb 10.8 gm/dL (13.0-17.5) L 06/17/17 06:53 Hct 35.1 % (39.0-53.0) L 06/17/17 06:53 MCV 96.9 fL (80.0-100.0) 06/17/17 06:53 MCH 29.8 pg (25.0-35.0) 06/17/17 06:53 MCHC 30.7 g/dL (31.0-37.0) L 06/17/17 06:53 RDW 15.2 % (11.5-15.5) 06/17/17 06:53 Plt Count 325 k/uL (150-450) 06/17/17 06:53 Neutrophils % 85 % 06/17/17 06:53 Lymphocytes % 9 % 06/17/17 06:53 Monocytes % 2 % 06/17/17 06:53 Eosinophils % 2 % 06/17/17 06:53 Basophils % 1 % 06/17/17 06:53 Neutrophils # 13.6 k/uL (1.3-7.7) H 06/17/17 06:53 Lymphocytes # 1.4 k/uL (1.0-4.8) 06/17/17 06:53 Monocytes # 0.4 k/uL (0-1.0) 06/17/17 06:53 Eosinophils # 0.3 k/uL (0-0.7) 06/17/17 06:53 Basophils # 0.1 k/uL (0-0.2) 06/17/17 06:53 Manual Slide Review Performed 06/08/17 09:50 Toxic Granulation Present 06/08/17 09:50 Hypochromasia Moderate 06/17/17 06:53 Poikilocytosis (manual Present 06/08/17 09:50 PT 12.4 sec (9.0-12.0) H 06/11/17 15:40 INR 1.3 (<1.2) H 06/11/17 15:40 APTT 30.5 sec (22.0-30.0) H 06/13/17 05:45 Sodium 138 mmol/L (137-145) 06/17/17 06:53 Potassium 3.4 mmol/L (3.5-5.1) L 06/17/17 17:59 Chloride 110 mmol/L (98-107) H 06/17/17 06:53 Carbon Dioxide 23 mmol/L (22-30) 06/17/17 06:53 Anion Gap 5 mmol/L 06/17/17 06:53 BUN 17 mg/dL (9-20) 06/17/17 06:53 Creatinine 0.55 mg/dL (0.66-1.25) L 06/17/17 06:53 Est GFR (MDRD) Af Amer >60 (>60 ml/min/1.73 sqM) 06/17/17 06:53 Est GFR (MDRD) Non-Af >60 (>60 ml/min/1.73 sqM) 06/17/17 06:53 Glucose 92 mg/dL (74-99) 06/17/17 06:53 POC Glucose (mg/dL) 113 mg/dL (75-99) H 06/11/17 00:51 POC Glu Tire Wrapper ID Kiki Mccoy 06/11/17 00:51 Osmolality 270 mosm/kg (280-301) L 06/09/17 05:36 Plasma Lactic Acid Saulo 1.3 mmol/L (0.7-2.0) 06/08/17 09:50 Calcium 8.3 mg/dL (8.4-10.2) L 06/17/17 06:53 Phosphorus 2.5 mg/dL (2.5-4.5) 06/16/17 07:00 Magnesium 2.1 mg/dL (1.6-2.3) 06/16/17 07:00 Total Bilirubin 0.6 mg/dL (0.2-1.3) 06/08/17 09:50 AST 31 U/L (17-59) 06/08/17 09:50 ALT 68 U/L (21-72) 06/08/17 09:50 Alkaline Phosphatase 119 U/L (38-126) 06/08/17 09:50 Total Creatine Kinase 75 U/L (55-170) 06/08/17 09:50 CK-MB (CK-2) 1.1 ng/mL (0.0-2.4) 06/08/17 09:50 CK-MB (CK-2) Rel Index 1.5 06/08/17 09:50 Troponin I 0.807 ng/mL (0.000-0.034) H* 06/11/17 05:23 NT-Pro-B Natriuret Pep 1690 pg/mL 06/08/17 09:50 Total Protein 6.0 g/dL (6.3-8.2) L 06/08/17 09:50 Albumin 2.3 g/dL (3.5-5.0) L 06/08/17 09:50 Urine Color Yellow 06/08/17 13:00 Urine Appearance Clear (Clear) 06/08/17 13:00 Urine pH 6.0 (5.0-8.0) 06/08/17 13:00 Ur Specific [place] 1.013 (1.001-1.035) 06/08/17 13:00 Urine Protein Trace (Negative) H 06/08/17 13:00 Urine Glucose (UA) Negative (Negative) 06/08/17 13:00 Urine Ketones Negative (Negative) 06/08/17 13:00 Urine Blood Negative (Negative) 06/08/17 13:00 Urine Nitrite Negative (Negative) 06/08/17 13:00 Urine Bilirubin Negative (Negative) 06/08/17 13:00 Urine Urobilinogen 2.0 mg/dL (<2.0) 06/08/17 13:00 Ur Leukocyte Esterase Negative (Negative) 06/08/17 13:00 Vancomycin Trough 16.9 ug/mL 06/15/17 11:33 Microbiology 06/08/17 09:50 Blood Blood Culture Gram Stain - Final 06/08/17 09:50 Blood Blood Culture - Final Staphylococcus epidermidis 06/08/17 09:50 Blood Blood Culture - Final Assessment and Plan (1) Abscess of lung with pneumonia Narrative/Plan: 86-year-old male presents to hospital with alteration in his status in about evidence of a significant right lower lobe pulmonary abscess. 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 Fortunately patient is showing some improvement although he does have an extensive leukocytosis. Interventional radiology has been consulted and a percutaneous pigtail catheter drainage of the lung abscesses been requested. Culture should be obtained at the time of the procedure. As well as pathology, although complete drainage of the abscess is not likely due to its loculated nature, Samples would still give us culture and cytology to evaluate for malignancies. Other cultures are process. Leukocytosis appears to related to his significant abscess and he has not been receiving large amounts of steroids at this time. Blood cultures are negative. Further evaluation to his swallowing he failed his swallow evaluation. Does have evidence of protein calorie malnutrition. The patient has had an extensive decline of his status. Family was originally considering PEG tube placement and ongoing care. However appears that they have now come to understand that the patient's status is rapidly declining and constantly hospices been consulted appropriately. Please contact for any further input. Status: Acute Code(s): J85.1 - ABSCESS OF LUNG WITH PNEUMONIA SNOMED Code(s) : 430366344 (2) Leukocytosis Status: Acute Code(s): D72.829 - ELEVATED WHITE BLOOD CELL COUNT, UNSPECIFIED SNOMED Code(s): 877997451 (3) History of cerebrovascular accident (CVA) with residual deficit Status: Chronic Code(s): I69.30 - UNSPECIFIED SEQUELAE OF CEREBRAL INFARCTION SNOMED Code(s): 454209918
--- NOTE | 2017-06-19 19:04 | DS ---
DISCHARGE SUMMARY FINAL DIAGNOSES: 1. Right-sided lung abscess; suspect Gram-negative organism and pneumonia from aspiration, present on admission. 2. Acute hypoxic respiratory failure, aspiration, requiring BiPAP initially. 3. Paroxysmal atrial fibrillation. 4. Chronic obstructive pulmonary disease. 5. 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 6. Hyperlipidemia. 7. Primary osteoarthritis. 8. Essential hypertension. 9. Benign prostatic hypertrophy. 10.Moderate protein-calorie malnutrition, present on admission. 11.Hyponatremia; suspect hypoosmolar; corrected. 12.CODE STATUS DNR. CONSULTATIONS: 1. Dr. Gaffney and colleagues from Pulmonary. 2. Dr. Vance from General Surgery. 3. Dr. Rojo from Infectious Disease. 4. Cardiothoracic team. 5. Dr. Larissa Peña from Cardiology. HOSPITAL COURSE: This is a patient who suffered a dense stroke affecting the right side with aphasia; oftentimes would choke on his feeding. He presented with a fall, discovered to have a lung abscess of the right side. He was not felt to be a candidate for surgical intervention, based on loculation. The patient failed swallowing and was felt to be at very high risk of aspiration. Per patient's wishes and his expressed patient never wanted a PEG tube. They knew very well if patient would eat he will start choking again. Hence they decided to make the patient hospice. The patient will be going to the [facility] in [place]. On examination, some right base crackles. Patient is awake and follows commands, not able to speak. Dense stroke on the right side, which is old. Care was discussed with the coordinator and the [facility] team. Discharge planning more than 35 minutes. DISCHARGE MEDICATIONS: 1. Ativan 1 mg p.o. q.4 p.r.n. for anxiety. 2. Roxanol 20 mg/mL 5 mg p.o. q.4 p.r.n. 3. Scopolamine 1.5 mg patch every 72 hours. DISPOSITION: [facility]. Oxygen for support p.r.n. Discharge planning more than 35 minutes. Care was discussed with his and daughter. Questions were answered. [id number] / IJN: [id number] /
== END 2017-06-18 17:28 | disposition hospice, inpatient (51) | DRG 177 ==
LOC: EC 09:23 → 6SEL 12:02 → 4MS4W 06-10 17:25 → 6SEL 06-11 00:52 → 6ICU 06-13 08:12 → 5MS5E 06-15 19:17
PROVIDERS: ADMIT Hospitalist; ATTEND Hospitalist
PROC: 5A09357 Assistance with Respiratory Ventilation, Less than 24 Consecutive Hours, Continuous Positive Airway Pressure (ICD-10-PCS; principal; 2017-06-13)
DX: J69.0 Pneumonitis due to inhalation of food and vomit (principal); J85.1 Abscess of lung with pneumonia; J96.01 Acute respiratory failure with hypoxia; E44.0 Moderate protein-calorie malnutrition; I69.351 Hemiplegia and hemiparesis following cerebral infarction affecting right dominant side; J44.1 Chronic obstructive pulmonary disease with (acute) exacerbation; E87.1 Hypo-osmolality and hyponatremia; J90 Pleural effusion, not elsewhere classified; E87.70 Fluid overload, unspecified; Z51.5 Encounter for palliative care; I48.0 Paroxysmal atrial fibrillation; I69.320 Aphasia following cerebral infarction; B96.89 Other specified bacterial agents as the cause of diseases classified elsewhere; E78.5 Hyperlipidemia, unspecified; I10 Essential (primary) hypertension; K05.6 Periodontal disease, unspecified; N40.1 Benign prostatic hyperplasia with lower urinary tract symptoms; R33.8 Other retention of urine; R29.6 Repeated falls; M19.90 Unspecified osteoarthritis, unspecified site; R32 Unspecified urinary incontinence; R07.9 Chest pain, unspecified; Z68.1 Body mass index [BMI] 19.9 or less, adult; Z66 Do not resuscitate; Z79.899 Other long term (current) drug therapy; Z79.82 Long term (current) use of aspirin; Z86.14 Personal history of Methicillin resistant Staphylococcus aureus infection; Z87.891 Personal history of nicotine dependence; Z87.01 Personal history of pneumonia (recurrent); Z98.1 Arthrodesis status; Z82.49 Family history of ischemic heart disease and other diseases of the circulatory system; W18.30XA Fall on same level, unspecified, initial encounter; Y92.009 Unspecified place in unspecified non-institutional (private) residence as the place of occurrence of the external cause
CPT/HCPCS: 36415; 51701; 71010; 71020; 71250; 71260; 72170; 72192; 74230; 80048; 80053; 80202; 81003; 82550; 82553; 83605; 83735; 83880; 83930; 84100; 84132; 84484; 85025; 85610; 85730; 87040; 87077; 87186; 93005; 93306; 94640; 94660; 94760; 96365; 96368; 96375; 99285